=== PATIENT | female | born 1945 | race Caucasian/White ===

== ENCOUNTER 2018-09-22 14:26 | Emergency (ER) | payer MEDICARE, OTHER, SELFPAY ==
[2018-09-22 15:01] VITALS: BP 180/90; PULSE 60; TEMP 36.8; O2SAT 97
[2018-09-22 15:13] VITALS: BP 174/67; PULSE 83; RESP 17; O2SAT 97
--- NOTE | 2018-09-22 15:16 | DI.RAD.S_ITS ---
PROCEDURE: XR CHEST 2V INDICATIONS: chest pain/poss food bolus TECHNIQUE: 2 views of the chest were acquired. COMPARISON: None. FINDINGS: Surgical changes and devices: None. Lungs and pleura: Lungs are clear. No pleural effusions or pneumothorax. Mediastinum: Mediastinal contours are normal. Heart size is normal. Bones and chest wall: No suspicious bony abnormalities. Soft tissues appear unremarkable. IMPRESSION: No acute cardiopulmonary pathology. Dictated by: Gordo Fowler M.D. on 09/22/2018 at 15:42 Approved by: Gordo Fowler M.D. on 09/22/2018 at 15:42
[2018-09-22 16:00] VITALS: BP 164/57; PULSE 83
--- NOTE | 2018-09-22 16:11 | ED.CHESTPAIN ---
HPI - Chest Pain General Chief Complaint: Abdominal Pain Stated Complaint: obstructed swallowing,chest pain for 1 month Time Seen by Provider: 09/22/18 15:39 Source: patient Mode of arrival: ambulatory Limitations: no limitations History of Present Illness HPI narrative: Patient is a 73-year-old female who presents with chest discomfort. She has had esophageal spasm and feels like things are stuck in her throat. She has had difficulty swallowing his food but is able to keep liquids down. She says nothing ever comes up. Today she was having chest discomfort while talking with her friends. It was not associated with eating or drinking. She does have some radiation to her left breast area. She does not have any pain now. She has no shortness of breath heart palpitations dizziness lightheadedness. MD complaint: chest pain Related Data Home Medications Medication Instructions Recorded Confirmed Fish Oil (#OMEGA 3) 2,000 mg PO Q DAY #0 08/13/11 MULTIVITAMIN 1 cap PO Q DAY #0 08/13/11 VITAMIN D (Vitamin D3) 2,000 unit PO QDAY #0 08/13/11 Vitamin B Complex4 (#B COMPLEX) 1 tab PO Q DAY #0 08/13/11 Previous Rx's Medication Instructions Recorded Ranitidine Hydrochloride 150 mg PO BID #30 01/30/12 (RANITIDINE) prednisone 0 PO SEE INSTRUCTIONS #21 01/30/12 Allergies Allergy/AdvReac Type Severity Reaction Status Date / Time codeine [CODEINE] Allergy Severe Dizzy / Unverified 10/23/17 11:49 Nausea / Vomiting meperidine [MEPERIDINE] Allergy Severe Dizzy / Unverified 10/23/17 11:49 Nausea / Vomiting Review of Systems Review of Systems ROS Unobtainable: All systems reviewed & are unremarkable except as noted in HPI and below Constitutional Denies chills, Denies fever(s), Denies lethargy and Denies weakness ENT Ears, Nose, Mouth, and Throat: Denies mouth lesions, Denies throat swelling and Denies tongue swelling Cardiovascular Reports chest pain, Denies syncope, Denies lightheadedness, Denies dyspnea and Denies dyspnea on exertion Respiratory Denies cough, Denies dyspnea, Denies dyspnea on exertion and Denies wheezing Gastrointestinal Gastrointestinal: Denies abdominal pain, Denies change in bowel habits, Denies diarrhea, Denies nausea and Denies vomiting Musculoskeletal Denies back pain, Denies muscle weakness, Denies numbness and Denies tingling Integumentary/Breasts Denies pruritus, Denies erythema, Denies rash and Denies wounds Neurologic Denies syncope, Denies numbness, Denies tingling and Denies weakness Allergic/Immunologic Denies throat swelling, Denies tongue swelling and Denies wheezing [facility] Medical History Esophageal spasm (Acute) Social History Smoking Status: Never smoker Social History Smoking Status: Never smoker alcohol intake: current substance use type: does not use Exam Initial Vital Signs Initial Vital Signs: Vital Signs Temperature 98.2 F 09/22/18 15:01 Pulse Rate 60 09/22/18 15:01 Blood Pressure 180/90 H 09/22/18 15:01 Pulse Oximetry 97 09/22/18 15:01 GENERAL: Well-appearing, well-nourished and in no acute distress. HEENT: Head atraumatic,EOMI, pupils reactive CARDIOVASCULAR: Regular rate and rhythm without murmurs, rubs or gallops. RESPIRATORY: Breath sounds equal bilaterally, no wheezes rales or rhonchi. No stridor managing own secretions ABDOMEN: Soft, nontender. Normoactive bowel sounds all 4 quadrants. No guarding or rebound. EXTREMITIES: Normal range of motion, no clubbing or edema. Neurovascularly intact NEUROLOGICAL: Alert and oriented x4.Normal gait and speech. SKIN: Warm, dry, no laceration, no petechiae, no rashes or lesions. Scores HEART Score Heart Score history: Slightly Suspicious Heart Score EKG: Normal Heart Score Age: > or = 65 years old Heart Score risk factors: No known risk factors Heart Score troponin: < or = to normal limit Heart Score Total: 2 Course Orders Ordered: Discontinued Medications Pantoprazole Sodium (Protonix) 40 mg IV NOW ONE Stop: 09/22/18 16:13 Last Admin: 09/22/18 17:04 Dose: 40 mg Vital Signs - 8 hr 09/22/18 15:01 09/22/18 15:13 09/22/18 16:00 Temperature 98.2 F Pulse Rate 60 83 83 Respiratory Rate 17 Blood Pressure 180/90 H Blood Pressure [Right Arm] 174/67 H 164/57 H Pulse Oximetry 97 97 09/22/18 17:35 Temperature Pulse Rate Respiratory Rate Blood Pressure Blood Pressure [Right Arm] 175/73 H Pulse Oximetry MDM - Chest Pain Lab Data Attestation: I reviewed the patient's lab results. Result diagrams: 09/22/18 17:00 09/22/18 17:00 Lab Results 09/22/18 09/22/18 Range/Units 17:00 17:00 WBC 8.4 (4.5-11.0) X10^3/uL RBC 4.52 (4.0-5.2) X10^6/uL Hgb 14.1 (12.0-16.0) g/dL Hct 42.4 (36-46) % MCV 93.8 (80-100) fL MCH 31.1 (26-34) PG MCHC 33.2 (30-36) % RDW 13.4 (11.6-14.8) % Plt Count 242 (150-400) X10^3/uL Neut % (Auto) 48.7 L (50-75) % Lymph % (Auto) 39.7 (25-40) % [place] % (Auto) 7.9 (3-14) % Eos % (Auto) 2.7 (2-4) % Baso % (Auto) 1.0 (0-2) % Neut # (Auto) 4100 (5144-7475) /uL Lymph # (Auto) 3300 (9492-1854) /uL [place] # (Auto) 700 (0-900) /uL Eos # (Auto) 200 (0-450) /uL Baso # (Auto) 100 (0-100) /uL Sodium 139 (137-145) mmol/L Potassium 4.3 (3.4-5.1) mmol/L Chloride 101 (98-107) mmol/L Carbon Dioxide 28 (22-32) mmol/L BUN 17 (7-17) mg/dL Creatinine 0.70 (0.52-1.04) mg/dL Estimated GFR > 60.0 (>60) mL/min BUN/Creatinine Ratio 24.3 H (6-22) Glucose 85 (80-110) mg/dL Calcium 9.6 (8.4-10.2) mg/dL Total Bilirubin 0.7 (0.2-1.3) mg/dL AST 33 (14-36) IU/L ALT 32 (9-52) IU/L Alkaline Phosphatase 63 (38-126) U/L Total Creatine Kinase 57 (30-135) U/L CK-MB (CK-2) TNP CK-MB (CK-2) Rel Index TNP Troponin I < 0.012 (0.01-0.034) ng/mL Total Protein 8.2 (6.3-8.2) g/dL Albumin 4.6 (3.5-5.0) g/dL Globulin 3.6 (1.7-4.1) g/dL Albumin/Globulin Ratio 1.3 (1.0-2.8) Lipase 103 (23-300) U/L Imaging Data Chest x-ray: Radiologist's impression: PROCEDURE: XR CHEST 2V INDICATIONS: chest pain/poss food bolus TECHNIQUE: 2 views of the chest were acquired. COMPARISON: None. FINDINGS: Surgical changes and devices: None. Lungs and pleura: Lungs are clear. No pleural effusions or pneumothorax. Mediastinum: Mediastinal contours are normal. Heart size is normal. Bones and chest wall: No suspicious bony abnormalities. Soft tissues appear unremarkable. IMPRESSION: No acute cardiopulmonary pathology. Dictated by: Gordo Fowler M.D. on 09/22/2018 at 15:42 ECG Data Attestation: I personally reviewed and interpreted this ECG as follows: Prior ECG tracings: not available for review Interpretation: Normal sinus rhythm rate [address] changes no T-wave inversion no sign of ischemia [place] interval 156 MDM Narrative Medical decision making narrative: Patient typically has esophageal spasm associated with solid food. She is able to drink liquids. She did have abnormal chest pain today without association of food. She overall is feeling is much better. I discussed with her need for cardiac evaluation and further workup along with full GI workup. She is recently got a referral by her PCP to GI however she is unsure exactly when it is. She feels like she has lost about 8 lb due to inability to eat. She understands that stress test is was not done today is still part of cardiac workup. She also understands return to ED if you should have any further worsening or changing chest pain. Discharge Plan Departure Patient Disposition: Home Clinical Impression: Atypical chest pain Discharge Date/Time: 09/22/18 18:09 Interventions: ED Discharge Assessment Last Done: 09/22/18 18:09 Instructions: DI for Atypical Chest Pain Activity Restrictions/Additional Instructions: *You have been diagnosed with atypical chest pain *What to do: At this time blood work EKG and x-ray are reassuring. However I still recommend stress test 4 year heart along with GI consultation. Please discuss this with your PCP *Continue to take medications as directed *Follow up with your primary care provider in 2-3 days *Return to ER if you should have chest discomfort, a breast inability to swallow persistently vomiting or any new, worsening or concerning symptoms Prescriptions: No Action Fish Oil (#OMEGA 3) 2,000 mg PO Q DAY Qty: 0 RF: 0 VITAMIN D (Vitamin D3) 2,000 unit PO QDAY Qty: 0 RF: 0 Vitamin B Complex4 (#B COMPLEX) 1 tab PO Q DAY Qty: 0 RF: 0 MULTIVITAMIN 1 cap PO Q DAY Qty: 0 RF: 0 prednisone 20 MG tablet PO SEE INSTRUCTIONS Qty: 21 RF: 0 Ranitidine Hydrochloride (RANITIDINE) 150 mg PO BID Qty: 30 RF: 0
[2018-09-22] MEDS: PANTOPRAZOLE 40 MG VIAL IV (17:04)
[2018-09-22 17:07] LABS: Add Manual Diff / Slide Review NO; Basophils Absolute Auto 100 /uL (0-100); Eosinophils Absolute Auto 200 /uL (0-450); Eosinophils Percent Auto 2.7 % (2-4); Hematocrit 42.4 % (36-46); Hemoglobin 14.1 g/dL (12.0-16.0); Lymphocytes Absolute Auto 3300 /uL (1100-4500); Lymphocytes Percent Auto 39.7 % (25-40); Mean Corpuscular HGB Conc 33.2 % (30-36); Mean Corpuscular Hemoglobin 31.1 PG (26-34); Mean Corpuscular Volume 93.8 fL (80-100); Monocytes Absolute Auto 700 /uL (0-900); Monocytes Percent Auto 7.9 % (3-14); Neutrophils Absolute Auto 4100 /uL (1500-7000); Neutrophils Percent Auto 48.7 % (50-75); Platelet Count 242 X10^3/uL (150-400); Red Blood Cell Count 4.52 X10^6/uL (4.0-5.2); Red Cell Distribution Width 13.4 % (11.6-14.8); White Blood Cell Count 8.4 X10^3/uL (4.5-11.0)
[2018-09-22 17:25] LABS: Alanine Aminotransferase 32 IU/L (9-52); Albumin 4.6 g/dL (3.5-5.0); Albumin Globulin Ratio 1.3 (1.0-2.8); Alkaline Phosphatase 63 U/L (38-126); Aspartate Aminotransferase 33 IU/L (14-36); BUN Creatinine Ratio 24.3 (6-22); Bilirubin Total 0.7 mg/dL (0.2-1.3); Blood Urea Nitrogen 17 mg/dL (7-17); Calcium 9.6 mg/dL (8.4-10.2); Carbon Dioxide 28 mmol/L (22-32); Chloride 101 mmol/L (98-107); Creatine Kinase 57 U/L (30-135); Estimated Glomerular Filt Rate > 60.0 mL/min (>60); Globulin 3.6 g/dL (1.7-4.1); Glucose 85 mg/dL (80-110); Lipase 103 U/L (23-300); Sodium 139 mmol/L (137-145); Total Protein 8.2 g/dL (6.3-8.2)
[2018-09-22 17:30] LABS: HEMOLYSIS 58 (0-50)
[2018-09-22 17:31] LABS: Potassium 4.3 mmol/L (3.4-5.1)
[2018-09-22 17:35] VITALS: BP 175/73
[2018-09-22 17:36] LABS: Troponin I < 0.012 ng/mL (0.01-0.034)
== END 2018-09-22 18:09 | disposition home or self-care (01) ==
PROVIDERS: Emergency Provider Emergency Medicine
DX: R07.89 Other chest pain (principal)
CPT/HCPCS: 36591; 71046; 80053; 82550; 83690; 84484; 85025; 93005; 96374; 99283; 99285; C9113

== ENCOUNTER 2019-06-10 16:24 | Inpatient (IN) | payer MEDICARE, OTHER, SELFPAY ==
--- NOTE | 2019-06-10 16:26 | ED.WEAKNESS ---
HPI - Weakness General Chief complaint: Weakness Stated complaint: Infection Time Seen by Provider: 06/10/19 16:25 Source: patient and EMS Mode of arrival: EMS Limitations: no limitations History of Present Illness HPI Narrative: The patient is a 73-year-old female with history of esophageal cancer for which she is chosen not to treat. She has a PEG tube because she is not able to eat. 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 She said last night she started feeling ill just generalized weakness and fatigue. She has some abdominal discomfort. No known fevers no nausea or vomiting. She says that she has only urinated twice she is unable to give herself feedings or is water in her PEG tube. She has some mild cough but no real shortness of breath or chest MD Complaint: generalized weakness Onset (ago): day(s) (1) Duration: constant Location: generalized Relieving factors: none Related Data Home Medications Medication Instructions Recorded Confirmed Fish Oil (#OMEGA 3) 2,000 mg PO Q DAY #0 08/13/11 MULTIVITAMIN 1 cap PO Q DAY #0 08/13/11 VITAMIN D (Vitamin D3) 2,000 unit PO QDAY #0 08/13/11 Vitamin B Complex4 (#B COMPLEX) 1 tab PO Q DAY #0 08/13/11 Previous Rx's Medication Instructions Recorded Ranitidine Hydrochloride 150 mg PO BID #30 01/30/12 (RANITIDINE) prednisone 0 PO SEE INSTRUCTIONS #21 01/30/12 Allergies Allergy/AdvReac Type Severity Reaction Status Date / Time No Known Allergies Allergy Verified 06/10/19 17:20 codeine [CODEINE] AdvReac Severe Dizzy / Unverified 06/10/19 17:20 Nausea / Vomiting meperidine [MEPERIDINE] AdvReac Severe Dizzy / Unverified 06/10/19 17:20 Nausea / Vomiting Review of Systems Review of Systems ROS Unobtainable: All systems reviewed & are unremarkable except as noted in HPI and below Constitutional Constitutional: Denies chills, Denies fever(s), Denies lethargy and Reports weakness Eyes Eyes: Denies change in vision, Denies eye discharge, Denies irritation and Denies loss of vision ENT Ears, Nose, Mouth, and Throat: Denies change in voice, Denies neck pain and Denies sore throat Cardiovascular Cardiovascular: Denies chest pain, Denies irregular heart rhythm, Denies lightheadedness, Denies palpitations, Denies dyspnea, Denies dyspnea on exertion and Denies orthopnea Respiratory Respiratory: Denies cough, Denies dyspnea, Denies dyspnea on exertion and Denies wheezing Gastrointestinal Gastrointestinal: Reports as per HPI Genitourinary Genitourinary: Denies hematuria, Denies flank pain, Denies urinary incontinence and Denies urinary urgency Musculoskeletal Musculoskeletal: Denies neck pain Integumentary/Breasts Skin/Breast: Denies pruritus, Denies erythema, Denies rash and Denies wounds Neurologic Neurologic: Denies loss of vision and Reports weakness Endocrine Endocrine: Denies palpitations Allergic/Immunologic Allergic/Immunologic: Denies wheezing Patient History Medical History Esophageal cancer (Acute) Esophageal spasm (Acute) Social History Smoking Status: Never smoker alcohol intake: current substance use type: does not use alcohol intake frequency: 0-2 drinks per day Substance Use Type: does not use Exam Initial Vital Signs Initial Vital Signs: Vital Signs Temperature 99.0 F 06/10/19 16:30 Pulse Rate 115 H 06/10/19 16:30 Respiratory Rate 18 06/10/19 16:30 Blood Pressure 114/57 L 06/10/19 16:30 Pulse Oximetry 97 06/10/19 16:30 GENERAL: Thin alert female weak HEENT: Head atraumatic,EOMI, pupils reactive, face symmetric, moist mucous membranes CARDIOVASCULAR: Regular rate and rhythm without murmurs, rubs or gallops. RESPIRATORY: Breath sounds equal bilaterally, no wheezes rales or rhonchi. ABDOMEN: Soft, mild epigastric tenderness no guarding or rebound, peg tube in place no surrounding erythema or sign of infection EXTREMITIES: Normal range of motion, no clubbing or edema. Neurovascularly intact NEUROLOGICAL: Alert and oriented x4.Normal gait and speech. Cranial nerves II through XII grossly intact. SKIN: Warm, dry, no laceration, no petechiae, no rashes or lesions. Course Orders Ordered: ED Orders 06/10/19 16:08 Complete Blood Count AUTO DIFF Stat Comprehensive Metabolic Panel Stat Lipase Stat Procalcitonin Stat 06/10/19 16:31 CT chest abd pel w con Stat 06/10/19 16:55 Blood Culture Stat Lactate (Lactic Acid) Stat 06/10/19 19:07 Urine Microscopic Stat Sodium Chloride (Normal Saline 0.9%) 1,000 mls @ 1,000 mls/hr IV CONT JONY Last Infusion: 06/10/19 19:30 Dose: 0 mls/hr Documented by: Admin: 06/10/19 18:10 Dose: 1,000 mls/hr Documented by: SHARIF Sodium Chloride (Normal Saline 0.9%) 1,000 mls @ 150 mls/hr IV CONT JONY Discontinued Medications Sodium Chloride (Normal Saline 0.9%) 1,000 mls @ 1,000 mls/hr IV BOLUS ONE Stop: 06/10/19 18:16 Last Infusion: 06/10/19 19:30 Dose: 0 mls/hr Documented by: Admin: 06/10/19 17:22 Dose: 1,000 mls/hr Documented by: SHARIF Piperacillin/Tazobactam/Dextrose (Zosyn) 3.375 gm in 50 mls @ 100 mls/hr IV NOW ONE Stop: 06/10/19 18:12 Last Infusion: 06/10/19 19:30 Dose: 0 mls/hr Documented by: Admin: 06/10/19 18:04 Dose: 100 mls/hr Documented by: SHARIF Morphine Sulfate (Morphine) 2 mg IV NOW ONE Stop: 06/10/19 17:18 Last Admin: 06/10/19 17:22 Dose: 2 mg Documented by: SHARIF Morphine Sulfate (Morphine) 2 mg IV NOW ONE Stop: 06/10/19 18:00 Last Admin: 06/10/19 18:03 Dose: 2 mg Documented by: SHARIF Vital Signs Vital signs: Vital Signs - 8 hr 06/10/19 16:30 06/10/19 18:05 Temperature 99.0 F Pulse Rate 115 H 109 H Respiratory Rate 18 23 Blood Pressure 114/57 L Blood Pressure [Left Arm] 109/51 L Pulse Oximetry 97 98 MDM - Weakness Lab Data Attestation: I reviewed the patient's lab results. Result diagrams: 06/10/19 16:08 06/10/19 16:08 Labs: Lab Results 06/10/19 06/10/19 06/10/19 Range/Units 16:08 16:08 16:08 WBC 29.7 H (4.5-11.0) X10^3/uL RBC 4.74 (4.0-5.2) X10^6/uL Hgb 13.0 (12.0-16.0) g/dL Hct 39.1 (36-46) % MCV 82.5 (80-100) fL MCH 27.5 (26-34) PG MCHC 33.4 (30-36) % RDW 14.0 (11.6-14.8) % Plt Count 412 H (150-400) X10^3/uL Neut % (Auto) Not Reportable Lymph % (Auto) Not Reportable [place] % (Auto) Not Reportable Eos % (Auto) Not Reportable Baso % (Auto) Not Reportable Lymph # (Auto) Not Reportable [place] # (Auto) Not Reportable Baso # (Auto) Not Reportable Total Counted 100 Seg Neutrophils % 86.0 H (38-70) % Band Neutrophils % 10.0 H (3-7) % Lymphocytes % (Manual) 2.0 L (25-45) % Monocytes % (Manual) 2.0 (2-11) % Neutrophils # (Manual) 64238 H (6120-2154) /uL RBC Morphology Normal morphology Sodium 131 L (137-145) mmol/L Potassium 3.9 (3.4-5.1) mmol/L Chloride 93 L (98-107) mmol/L Carbon Dioxide 29 (22-32) mmol/L BUN 17 (7-17) mg/dL Creatinine 0.80 (0.52-1.04) mg/dL Estimated GFR > 60.0 (>60) mL/min BUN/Creatinine Ratio 21.3 (6-22) Glucose 169 H (80-110) mg/dL Lactate (0.7-2.1) mmol/L Calcium 9.2 (8.4-10.2) mg/dL Total Bilirubin 1.1 (0.2-1.3) mg/dL AST 26 (14-36) IU/L ALT 15 (<35) IU/L Alkaline Phosphatase 78 (38-126) U/L Total Protein 7.7 (6.3-8.2) g/dL Albumin 3.8 (3.5-5.0) g/dL Globulin 3.9 (1.7-4.1) g/dL Albumin/Globulin Ratio 1.0 (1.0-2.8) Lipase 13 L (23-300) U/L Procalcitonin 8.96 H (<0.5) ng/mL 06/10/19 Range/Units 16:55 WBC (4.5-11.0) X10^3/uL RBC (4.0-5.2) X10^6/uL Hgb (12.0-16.0) g/dL Hct (36-46) % MCV (80-100) fL MCH (26-34) PG MCHC (30-36) % RDW (11.6-14.8) % Plt Count (150-400) X10^3/uL Neut % (Auto) Lymph % (Auto) [place] % (Auto) Eos % (Auto) Baso % (Auto) Lymph # (Auto) [place] # (Auto) Baso # (Auto) Total Counted Seg Neutrophils % (38-70) % Band Neutrophils % (3-7) % Lymphocytes % (Manual) (25-45) % Monocytes % (Manual) (2-11) % Neutrophils # (Manual) (0327-9866) /uL RBC Morphology Sodium (137-145) mmol/L Potassium (3.4-5.1) mmol/L Chloride (98-107) mmol/L Carbon Dioxide (22-32) mmol/L BUN (7-17) mg/dL Creatinine (0.52-1.04) mg/dL Estimated GFR (>60) mL/min BUN/Creatinine Ratio (6-22) Glucose (80-110) mg/dL Lactate 1.5 (0.7-2.1) mmol/L Calcium (8.4-10.2) mg/dL Total Bilirubin (0.2-1.3) mg/dL AST (14-36) IU/L ALT (<35) IU/L Alkaline Phosphatase (38-126) U/L Total Protein (6.3-8.2) g/dL Albumin (3.5-5.0) g/dL Globulin (1.7-4.1) g/dL Albumin/Globulin Ratio (1.0-2.8) Lipase (23-300) U/L Procalcitonin (<0.5) ng/mL Urine Dip Bedside Urine Glucose Negative Bedside Urine Bilirubin - Negative Bedside Urine Ketone - Negative Urine Specific [place] 1.010 Bedside Urine Occult Blood - Negative Bedside Urine pH 6.0 Bedside Urine Protein +/- 15 Bedside Urine Urobilinogen - Negative Bedside Urine Nitrite - Negative Bedside Urine Leukocytes + [address] scan - chest: Radiologist's impression: PROCEDURE: CT CHEST ABD PEL W CON INDICATIONS: esophageal cancer, incraesed pain and cough TECHNIQUE: After the administration of intravenous contrast, 5 mm thick sections acquired from the lung apices to the symphysis. 2.5 mm thick coronal and sagittal reformats were acquired. Additional 7 mm thick coronal maximum intensity projection (MIP) reformats acquired through the lungs. Optional 10-minute delayed imaging may be performed from the kidneys to the bladder. For radiation dose reduction, the following was used: automated exposure control, adjustment of mA and/or kV according to patient size. COMPARISON: [facility], CT, CT CHEST ABDOMEN PELVIS WITH CONTRAST, 10/05/2018, 15:25. FINDINGS: Image quality: Excellent. CHEST: Lungs: Tiny right and small left pleural effusion with associated compressive atelectasis. A few scattered patchy ill-defined groundglass opacity dominantly in the upper lobes. No pneumothorax. Central and peripheral airways appear patent and normal in caliber. Mediastinum: No mediastinal hematomas. Heart size is normal. No pericardial effusion. Thoracic aorta and pulmonary arteries demonstrate normal size and enhancement. No mediastinal or hilar adenopathy by size criteria; however, there are several scattered lymph nodes more notable for number rather than size. Additionally, multiple scattered bilateral axillary lymph nodes are also present. Esophagus is fluid-filled to the level of the thoracic inlet. There is irregular wall thickening of the inferior portion of the esophagus and gastroesophageal junction. This may be related to reported history of esophageal cancer. No extra luminal free air or pneumomediastinum identified. There is moderate distention of the inferior portion of the esophagus. The visualized stomach is decompressed. A feeding tube is noted within the stomach. Chest wall: No rib fractures. No subcutaneous emphysema. No axillary or supraclavicular adenopathy. Thyroid gland is stable in appearance. ABDOMEN: Solid organs: Liver is normal in size and enhancement, without lacerations. Gallbladder is moderately distended without wall thickening or pericholecystic inflammatory stranding. Biliary system is non-dilated. Pancreas enhances normally, without transection. Spleen is normal in size and enhancement, without lacerations. No adrenal hematomas. Both kidneys enhance normally, without hydronephrosis or lacerations. Peritoneum and bowel: Small amount of scattered free fluid likely reactive. No free air. There is inflammatory stranding surrounding the proximal ascending colon and distal small bowel with mild wall thickening. No evidence for bowel obstruction. Moderate fecal material seen throughout the transverse colon, descending colon, and rectum. Nodes and vessels: Interval development of substantial retroperitoneal adenopathy. This is noted predominantly along the aorta. There is also periportal adenopathy.. Aorta and inferior vena cava are normal in size and enhancement. Miscellaneous: No ventral hernias. PELVIS: Genitourinary: Bladder wall thickness is normal. Miscellaneous: No inguinal hernias or adenopathy. Bones: Visualized osseous structures appear stable. No acute vertebral body compression fractures. Multilevel spondylitic changes throughout the imaged spine. IMPRESSION: 1. Interval progression of previously described distal esophageal cancer with moderate distention of a fluid-filled esophagus proximally. There has been interval development of extensive periportal and retroperitoneal adenopathy compatible with progression of disease. 2. Mild inflammatory stranding involving the proximal ascending colon and distal small bowel without evidence for bowel obstruction. Mild wall thickening. Findings may represent an inflammatory versus infectious colitis/enteritis. Small amount of free fluid likely reactive. No organized fluid collection seen. No free air. 3. Bilateral pleural effusions, larger on the left with a few small ill-defined groundglass nodules in the bilateral upper lobes, favored to represent an infectious/inflammatory process. Short interval followup CT can be considered to document stability versus resolution. Findings were discussed with Dr. Srivastava of the emergency department staff. Dictated by: Mansoor Valentin M.D. on 06/10/2019 at 19:17 MDM Narrative Medical decision making narrative: [place] [id number] with elevated procalcitonin normal lactate afebrile normal blood pressure but tachycardic. Concern for a sepsis however no source is definitively found. She does have some mild leukocytes in her urine. CT does show possible colitis she has minimal pain. She overall is feeling much better after IV fluids and morphine. She is empirically given a dose of Zosyn. Discussed with Jorgito BAUMANN about admission. Updated patient's symptoms test results agrees with admission. Discharge Plan Departure Patient Disposition: Admitted As Inpatient Clinical Impression: Sepsis Qualifiers: Sepsis type: sepsis due to unspecified organism Sepsis acute organ dysfunction status: without acute organ dysfunction Qualified Code(s): A41.9 - Sepsis, unspecified organism
[2019-06-10 16:30] VITALS: BP 114/57; PULSE 115; RESP 18; TEMP 37.2; O2SAT 97; BMI 20.5
--- NOTE | 2019-06-10 16:31 | DI.CT.S_ITS ---
PROCEDURE: CT CHEST ABD PEL W CON INDICATIONS: esophageal cancer, incraesed pain and cough TECHNIQUE: After the administration of intravenous contrast, 5 mm thick sections acquired from the lung apices to the symphysis. 2.5 mm thick coronal and sagittal reformats were acquired. Additional 7 mm thick coronal maximum intensity projection (MIP) reformats acquired through the lungs. Optional 10-minute delayed imaging may be performed from the kidneys to the bladder. For radiation dose reduction, the following was used: automated exposure control, adjustment of mA and/or kV according to patient size. COMPARISON: [facility], CT, CT CHEST ABDOMEN PELVIS WITH CONTRAST, 10/05/2018, 15:25. FINDINGS: Image quality: Excellent. CHEST: Lungs: Tiny right and small left pleural effusion with associated compressive atelectasis. A few scattered patchy ill-defined groundglass opacity dominantly in the upper lobes. No pneumothorax. Central and peripheral airways appear patent and normal in caliber. Mediastinum: No mediastinal hematomas. Heart size is normal. No pericardial effusion. Thoracic aorta and pulmonary arteries demonstrate normal size and enhancement. No mediastinal or hilar adenopathy by size criteria; however, there are several scattered lymph nodes more notable for number rather than size. Additionally, multiple scattered bilateral axillary lymph nodes are also present. Esophagus is fluid-filled to the level of the thoracic inlet. There is irregular wall thickening of the inferior portion of the esophagus and gastroesophageal junction. This may be related to reported history of esophageal cancer. No extra luminal free air or pneumomediastinum identified. There is moderate distention of the inferior portion of the esophagus. The visualized stomach is decompressed. A feeding tube is noted within the stomach. Chest wall: No rib fractures. No subcutaneous emphysema. No axillary or supraclavicular adenopathy. Thyroid gland is stable in appearance. ABDOMEN: Solid organs: Liver is normal in size and enhancement, without lacerations. Gallbladder is moderately distended without wall thickening or pericholecystic inflammatory stranding. Biliary system is non-dilated. Pancreas enhances normally, without transection. Spleen is normal in size and enhancement, without lacerations. No adrenal hematomas. Both kidneys enhance normally, without hydronephrosis or lacerations. Peritoneum and bowel: Small amount of scattered free fluid likely reactive. No free air. There is inflammatory stranding surrounding the proximal ascending colon and distal small bowel with mild wall thickening. No evidence for bowel obstruction. Moderate fecal material seen throughout the transverse colon, descending colon, and rectum. Nodes and vessels: Interval development of substantial retroperitoneal adenopathy. This is noted predominantly along the aorta. There is also periportal adenopathy.. Aorta and inferior vena cava are normal in size and enhancement. Miscellaneous: No ventral hernias. PELVIS: Genitourinary: Bladder wall thickness is normal. Miscellaneous: No inguinal hernias or adenopathy. Bones: Visualized osseous structures appear stable. No acute vertebral body compression fractures. Multilevel spondylitic changes throughout the imaged spine. IMPRESSION: 1. Interval progression of previously described distal esophageal cancer with moderate distention of a fluid-filled esophagus proximally. There has been interval development of extensive periportal and retroperitoneal adenopathy compatible with progression of disease. 2. Mild inflammatory stranding involving the proximal ascending colon and distal small bowel without evidence for bowel obstruction. Mild wall thickening. Findings may represent an inflammatory versus infectious colitis/enteritis. Small amount of free fluid likely reactive. No organized fluid collection seen. No free air. 3. Bilateral pleural effusions, larger on the left with a few small ill-defined groundglass nodules in the bilateral upper lobes, favored to represent an infectious/inflammatory process. Short interval followup CT can be considered to document stability versus resolution. Findings were discussed with Dr. Srivastava of the emergency department staff. Dictated by: Mansoor Valentin M.D. on 06/10/2019 at 19:17 Approved by: Mansoor Valentin M.D. on 06/10/2019 at 19:36
[2019-06-10 16:49] LABS: Hematocrit 39.1 % (36-46); Mean Corpuscular HGB Conc 33.4 % (30-36); Mean Corpuscular Hemoglobin 27.5 PG (26-34); Mean Corpuscular Volume 82.5 fL (80-100); Platelet Count 412 X10^3/uL (150-400); Red Blood Cell Count 4.74 X10^6/uL (4.0-5.2); White Blood Cell Count 29.7 X10^3/uL (4.5-11.0)
[2019-06-10 16:51] LABS: Add Manual Diff / Slide Review YES
[2019-06-10 16:54] LABS: Alanine Aminotransferase 15 IU/L (<35); Albumin 3.8 g/dL (3.5-5.0); Alkaline Phosphatase 78 U/L (38-126); Aspartate Aminotransferase 26 IU/L (14-36); BUN Creatinine Ratio 21.3 (6-22); Bilirubin Total 1.1 mg/dL (0.2-1.3); Blood Urea Nitrogen 17 mg/dL (7-17); Calcium 9.2 mg/dL (8.4-10.2); Carbon Dioxide 29 mmol/L (22-32); Chloride 93 mmol/L (98-107); Estimated Glomerular Filt Rate > 60.0 mL/min (>60); Globulin 3.9 g/dL (1.7-4.1); Glucose 169 mg/dL (80-110); HEMOLYSIS 18 (0-50); Lipase 13 U/L (23-300); Potassium 3.9 mmol/L (3.4-5.1); Sodium 131 mmol/L (137-145); Total Protein 7.7 g/dL (6.3-8.2)
[2019-06-10 17:12] LABS: Neutrophils Absolute Manual 28512 /uL (3000-5900); Total Cells Counted 100
[2019-06-10 17:13] LABS: RBC Morphology Normal Morphology
[2019-06-10 17:15] LABS: Procalcitonin 8.96 ng/mL (<0.5)
[2019-06-10 17:17] LABS: Lactate (Lactic Acid) 1.5 mmol/L (0.7-2.1)
[2019-06-10] MEDS: SODIUM CHLORIDE 0.9% 1,000 ML 1000 ML IV ×2 (17:22→18:10)
[2019-06-10] MEDS: MORPHINE 2 MG/ML INJ IV ×3 (17:22→20:27)
[2019-06-10] MEDS: PIPERACILLIN-TAZO 3.375 GM/50 ML FROZ.PIGGY IV (18:04)
[2019-06-10 18:05] VITALS: BP 109/51; PULSE 109; RESP 23; O2SAT 98
[2019-06-10 19:40] LABS: RBC Urine None Seen (0-5/HPF)
[2019-06-10] MEDS: SODIUM CHLORIDE 0.9% 1,000 ML 150 ML IV (19:50)
[2019-06-10 19:57] LABS: Bacteria Urine Few (2-10); Culture Indicated Urine Specimen Cultured; Squamous Epithelial Cell Urine 1-5 /HPF (0-5/HPF); WBC Urine 30-100/HPF (0-5/HPF)
[2019-06-10 20:30] VITALS: BP 107/64; PULSE 101; RESP 19; O2SAT 99
[2019-06-10 20:38] VITALS: BMI 20.9
--- NOTE | 2019-06-10 20:38 | P.HP_ITS ---
History of Present Illness History of Present Illness Date Patient Seen: 06/10/19 Time Patient Seen: 20:00 Chief complaint: Weakness Narrative: Tessy Vasquez is a 73 y.o. female with a diagnosis of esphogeal cancer that uses a feeding tube developed generalized weakness over the past 24 hours to the point she was unable to do her tube feedings. She denies fever or chills, shortness of breath, throat pain, has been very thirsty but became nauseated when she trie d to drink water. Denies chest pain, abdominal pain, but noted upon exam that her feeding tube site was bleeding which is not normal. She does endorse chronic constipation due to taking oxycodone. Denies upper or lower extremity neuropathies, has intermittent depression. She is currently under the care of Dr. Fajardo, oncologist and Ynes George PCP of [facility]. States she is not pursuing traditional chemotherapy but was going to start IV Vitamin C through a [facility] physician she sees. Patient History Medical History (Updated 06/10/19 @ 20:43 by IBIS Houser) Esophageal cancer (Chronic) Esophageal spasm (Acute) Surgical History (Updated 06/10/19 @ 20:43 by IBIS Houser) Encounter for feeding tube placement (Acute) Family & Social History Family History (Updated 06/10/19 @ 20:41 by IBIS Houser) Other Adopted person Safety & Behavioral: Feels Safe in Current Yes Environment Been Physically Hurt or No Threatened By a Person Tobacco & Substance use: Smoking Status Never smoker alcohol intake current alcohol intake frequency 0-2 drinks per day Substance Use Type does not use Meds Home Medications and Allergies Home Medications Medication Instructions Recorded Confirmed Type Fish Oil (#OMEGA 3) 2,000 mg PO Q DAY #0 08/13/11 History MULTIVITAMIN 1 cap PO Q DAY #0 08/13/11 History VITAMIN D (Vitamin D3) 2,000 unit PO QDAY #0 08/13/11 History Vitamin B Complex4 (#B COMPLEX) 1 tab PO Q DAY #0 08/13/11 History Ranitidine Hydrochloride 150 mg PO BID #30 01/30/12 Rx (RANITIDINE) prednisone 0 PO SEE INSTRUCTIONS #21 01/30/12 Rx Allergies Allergy/AdvReac Type Severity Reaction Status Date / Time No Known Allergies Allergy Verified 06/10/19 17:20 codeine [CODEINE] AdvReac Severe Dizzy / Unverified 06/10/19 17:20 Nausea / Vomiting meperidine [MEPERIDINE] AdvReac Severe Dizzy / Unverified 06/10/19 17:20 Nausea / Vomiting Review of Systems Review of Systems ROS Unobtainable: All systems reviewed & are unremarkable except as noted in HPI and below Exam Vital Signs (past 8 hours): - 06/10/19 16:30 06/10/19 18:05 Temperature 99.0 F Pulse Rate 115 H 109 H Respiratory Rate 18 23 Blood Pressure 114/57 L Blood Pressure [Left Arm] 109/51 L Pulse Oximetry 97 98 Oxygen Delivery Method Room Air Narrative Exam Narrative: Gen: Alert, oriented, ill appearing and cachectic 73 y.o. female, pale HEENT: normocephalic, atraumatic, conjunctiva clear, sclera non-icteric, oral mucosa pink and moist Neck: supple, full ROM Resp: Lungs CTA, non-labored breathing CV: RRR, no murmur or rubs Abd: soft, non-tender, normoactive BTs Skin: Has dried blood around entry point of her feeding tubeno lesions or rashes Neuro: Alert and oriented X 4 w/no focal deficits Extremities: moves all 4 extremities, is ambulatory, negative Gallito?s sign Psyche: normal mood and affect. Objective Labs Result Diagrams: 06/10/19 16:08 06/10/19 16:08 Labs: Laboratory Results - last 24 hr 06/10/19 06/10/19 06/10/19 16:08 16:08 16:08 WBC 29.7 H RBC 4.74 Hgb 13.0 Hct 39.1 MCV 82.5 MCH 27.5 MCHC 33.4 RDW 14.0 Plt Count 412 H Neut % (Auto) Not Reportable Lymph % (Auto) Not Reportable [place] % (Auto) Not Reportable Eos % (Auto) Not Reportable Baso % (Auto) Not Reportable Lymph # (Auto) Not Reportable [place] # (Auto) Not Reportable Baso # (Auto) Not Reportable Total Counted 100 Seg Neutrophils % 86.0 H Band Neutrophils % 10.0 H Lymphocytes % (Manual) 2.0 L Monocytes % (Manual) 2.0 Neutrophils # (Manual) 88084 H RBC Morphology Normal morphology Sodium 131 L Potassium 3.9 Chloride 93 L Carbon Dioxide 29 BUN 17 Creatinine 0.80 Estimated GFR > 60.0 BUN/Creatinine Ratio 21.3 Glucose 169 H Lactate Calcium 9.2 Total Bilirubin 1.1 AST 26 ALT 15 Alkaline Phosphatase 78 Total Protein 7.7 Albumin 3.8 Globulin 3.9 Albumin/Globulin Ratio 1.0 Lipase 13 L Procalcitonin 8.96 H Urine RBC Urine WBC Ur Squamous Epith Cells Urine Bacteria Ur Culture Indicated? 06/10/19 06/10/19 16:55 19:07 WBC RBC Hgb Hct MCV MCH MCHC RDW Plt Count Neut % (Auto) Lymph % (Auto) [place] % (Auto) Eos % (Auto) Baso % (Auto) Lymph # (Auto) [place] # (Auto) Baso # (Auto) Total Counted Seg Neutrophils % Band Neutrophils % Lymphocytes % (Manual) Monocytes % (Manual) Neutrophils # (Manual) RBC Morphology Sodium Potassium Chloride Carbon Dioxide BUN Creatinine Estimated GFR BUN/Creatinine Ratio Glucose Lactate 1.5 Calcium Total Bilirubin AST ALT Alkaline Phosphatase Total Protein Albumin Globulin Albumin/Globulin Ratio Lipase Procalcitonin Urine RBC None seen Urine WBC 30-100/hpf H Ur Squamous Epith Cells 1-5 /hpf Urine Bacteria Few (2-10) H Ur Culture Indicated? Specimen cultured Assessment & Plan Assessment & Plan narrative: Tessy Vasquez will be admitted for IV antibiotic treatment and further workup of the infectious process. 1. Elevated WBC and bandemia, acute and present on admission * Repeat CBC and lactate in the am * Continue IV pipercillen sulbactem given in the ED * Start Vanco dosed per pharmacy * Blood and urine cultures are pending * Stool culture ordered and pending * Monitor for signs of sepsis, currently she is not septic 2. Esophageal cancer, worsening, POA * Patient is currently not pursuing traditional treatment but is under the care of Dr. Fajardo * Dr. Fajardo needs to be notified of her admission 3. Bilateral pleural effusions, new, POA * Radiology findings 1. Interval progression of previously described distal esophageal cancer with moderate distention of a fluid-filled esophagus proximally. There has been interval development of extensive periportal and retroperitoneal adenopathy compatible with progression of disease. 2. Mild inflammatory stranding involving the proximal ascending colon and distal small bowel without evidence for bowel obstruction. Mild wall thickening. Findings may represent an inflammatory versus infectious colitis/enteritis. Small amount of free fluid likely reactive. No organized fluid collection seen. No free air. 3. Bilateral pleural effusions, larger on the left with a few small ill-defined groundglass nodules in the bilateral upper lobes, favored to represent an infectious/inflammatory process. Short interval followup CT can be considered to document stability versus resolution. They recommended close interval follow-up w/CT. * Monitor for worsening pleural effusions and consult with IR for a thoracentesis on Tuesday 06/12. 4. Bleeding at PEG tube site, new, POA * If continues, surgical consult will be in order. Patient is admitted as an inpatient as her stay is anticipated to exceed 2 midnights. FEN: NS at 125 ml/hour, liquid diet per NG tube, chemistries in the am. VTE Prophylaxis: bilateral SCDs, pharmacological anticoagulation held due to current bleeding her PEG tube site. Disposition: Unknown at this time Code status: Full Code Admission time: 65 minutes Meds reconciled: Yes
[2019-06-10 20:40] VITALS: BP 125/55; PULSE 108; RESP 20; TEMP 37.7; O2SAT 99
--- NOTE | 2019-06-10 21:31 | PC.NURSE ---
admit pt to AC from ER approx 2100. VSS with slight tachycardia at 109. Chronic back pain; intermittent pt states tolererable. Pt brought own tube feeding supplies from home and administers via gravity. pt states on a good day takes in 4-5 containers (325ml each) of formula along with water flushes. pt currently administering dose independently. PEG tube insertion sight has dried blood around tubing and in areas where disc of feeding tube was positioned against skin. area cleansed with saline moistened gauze and Vaseline applied to some spots that were crusted and not coming off. T-tube gauze overlay between skin and plastic disc. will pass on in report to cleanse area again in the AM to try to remove remaining dried blood. Awaiting resp swab from lab. Pt oriented to room and plan of care. instructed to use call light for needs and prior to activity for assist.
[2019-06-10] MEDS: OXYCODONE 5 MG/5 ML ORAL SOLUTION PO (22:19)
[2019-06-10 23:00] VITALS: BP 94/49; PULSE 100; RESP 18; TEMP 37.2; O2SAT 94
[2019-06-10 23:01] LABS: Adenovirus Not Detected (Not Detect); Bordetella pertussis Not Detected (Not Detect); Chlamydophila pneumoniae Not Detected (Not Detect); Coronavirus 229E Not Detected (Not Detect); Coronavirus HKU1 Not Detected (Not Detect); Coronavirus NL 63 Not Detected (Not Detect); Coronavirus OC43 Not Detected (Not Detect); Human Metapneumovirus Not Detected (Not Detect); Human Rhinovirus/Enterovirus Not Detected (Not Detect); Influenza A Not Detected (Not Detect); Influenza B Not Detected (Not Detect); Mycoplasma pneumoniae Not Detected (Not Detect); Parainfluenza Virus 1 Not Detected (Not Detect); Parainfluenza Virus 2 Not Detected (Not Detect); Parainfluenza Virus 3 Not Detected (Not Detect); Parainfluenza Virus 4 Not Detected (Not Detect); Respiratory Syncytial Virus Not Detected (Not Detect)
[2019-06-10] MEDS: VANCOMYCIN 1,250 MG in SODIUM CHLORIDE 0.9% 250 ML IV (23:02)
[2019-06-11] VITALS (9 sets, daily range): BP systolic 89–114; BP diastolic 45–67; PULSE 88–111; RESP 16–21; TEMP 36.7–37.4; O2SAT 94–96
[2019-06-11] MEDS: PIPERACILLIN-TAZO 3.375 GM/50 ML FROZ.PIGGY IV ×5 (00:12→23:45)
--- NOTE | 2019-06-11 01:21 | PC.NURSE ---
Patient on an NPO diet as she cannot pass anything through esophagus due to cancer but is allowed to feed herself with home formula and can have water to swish and spit. This was clarified and ordered verbally by IBIS Bull, see diet modifications and communication order in worklist.
[2019-06-11] MEDS: SODIUM CHLORIDE 0.9% 1,000 ML 150 ML IV ×2 (03:56→13:24)
[2019-06-11] MEDS: OXYCODONE 5 MG/5 ML ORAL SOLUTION PO ×3 (04:32→20:21)
[2019-06-11 05:13] LABS: Add Manual Diff / Slide Review NO; Basophils Absolute Auto 100 /uL (0-100); Basophils Percent Auto 0.3 % (0-2); Eosinophils Absolute Auto 200 /uL (0-450); Hematocrit 28.3 % (36-46); Hemoglobin 9.5 g/dL (12.0-16.0); Lymphocytes Absolute Auto 500 /uL (1100-4500); Lymphocytes Percent Auto 2.1 % (25-40); Mean Corpuscular HGB Conc 33.7 % (30-36); Mean Corpuscular Hemoglobin 27.8 PG (26-34); Mean Corpuscular Volume 82.6 fL (80-100); Monocytes Absolute Auto 400 /uL (0-900); Monocytes Percent Auto 1.8 % (3-14); Neutrophils Absolute Auto 23100 /uL (1500-7000); Neutrophils Percent Auto 94.8 % (50-75); Platelet Count 309 X10^3/uL (150-400); Red Blood Cell Count 3.43 X10^6/uL (4.0-5.2); Red Cell Distribution Width 13.8 % (11.6-14.8); White Blood Cell Count 24.4 X10^3/uL (4.5-11.0)
[2019-06-11 05:19] LABS: BUN Creatinine Ratio 28.6 (6-22); Blood Urea Nitrogen 20 mg/dL (7-17); Calcium 7.7 mg/dL (8.4-10.2); Carbon Dioxide 24 mmol/L (22-32); Chloride 101 mmol/L (98-107); Estimated Glomerular Filt Rate > 60.0 mL/min (>60); Glucose 120 mg/dL (80-110); HEMOLYSIS < 15 (0-50); Potassium 3.3 mmol/L (3.4-5.1); Sodium 129 mmol/L (137-145)
[2019-06-11] MEDS: POTASSIUM CHLORIDE 20 MEQ/15 ML UDC 40 MEQ TUBE (06:40)
[2019-06-11 07:27] LABS: Procalcitonin 8.06 ng/mL (<0.5)
--- NOTE | 2019-06-11 09:42 | DIET.PN ---
Dietary Progress Note Assessment: Mrs. Vasquez is a 73 yof w/ esophageal cancer without traditional therapy. She is on a home tube feeding formula, but was unable to administer herself due to weakness. She has had significant weight loss over the last several months. HT: 162.56 cm WT: 55.4 kg UBW: 77 kg (09/30) % change: 28% BMI: 21 Labs: Na: 129 L K: 3.3 L MNA: 5 Mega: Nutrition Diagnosis: Chronic illness severe protein calorie malnutrition r/t physiological causes increasing nutrient needs due to illness, inability to consume sufficient PO nutrition aeb dx esophageal cancer, energy intake < 75% EER > 1mo, weight loss > 10% in 6 mo, on home tubefeeding for nutritional support. Interventions: 1. Mrs. Vasquez is on home tubefeeding for nutritional support. Spoke w/ nurse Elly. She brought her own TF supplements with her ([employer] 1.0) witch is a plant based supplement I am familiar with. I will provide my recommendations of calorie needs and hospital formulary. Pt will need 70 ml/hr if utilizing home formulary. Diet Order: Tube Feeding. Jevity (1.2 Chao) at 60 mL/hr (continuous) - Start at 20 mL/hr, titrate by 10-20 mL/hr every 4 hours to goal - 1 additional protein packet (Beneprotein) per day - 150 mL free water flushes every 4 hours (37.5 mL/hr) - Provides 1752 kcal (32 kcal/kg) and 86 gm (1.6 gm/kg) of protein - Enteral feed and flushes provide 2062 mL (37 mL/kg) of free water May switch to Bolus feed of 290 ml w/ 180 ml flushes for 5 feeds q 3 hrs (ex. 7a, 10a, 1p, 4p, 7p) or as tolerated by patient. Nutritional Monitor Parameters - Elevate head of bed 30-45 degrees while feeding - Check gastric residuals every 4 hours when initiating feeding. May check every 6-8 hours once goal rate is achieved - Hold gastric feeds for residuals more than 500 mL. Avoid holding feeds for residuals < 500 mL without other signs of intolerance. EER: 1700 chao @ 30 chao/kg Pro: 83g @ 1.5 g/kg Monitoring/Evaluations: tube feeding tolerance, residuals, weight
[2019-06-11] MEDS: POLYETHYLENE GLYCOL 3350 17 GM POWD.PACK PO (10:48)
[2019-06-11] MEDS: VANCOMYCIN 750 MG/150 ML FROZ.PIGGY 150 MG IV ×2 (10:48→19:08)
[2019-06-11] MEDS: DOCUSATE ORAL LIQUID 100 MG/10 ML UDC PO ×2 (10:49→20:21)
--- NOTE | 2019-06-11 11:42 | CM.DANOTE ---
DCP: Case received, EMR reviewed and met with patient. Introduced self and role. Was able to meet with patient and obtain baseline status information regarding health and activity level, as well as living situation. DCP assessment completed with information currently available. Patient is a 73 year old female who admitted yesterday evening to the care of the hospitalist team. PCP: Dr. Ynes George, at [facility]. Payer: confirmed: Medicare/[employer]. Patient came to the hospital via ambulance secondary to having increased weakness. Patient has history of esophageal cancer, and is under the care of Dr. Barrera, oncology. Patient does have an underlying infection, and is getting IV antibiotics.Patient has a peg tube, and does her own feedings. When this renal case manager met with her, she was in the middle of giving herself her feeding. Patient is alert and oriented, lives alone, but is independent. She does have a son named Henrik, who she stated, is supportive, and also has a daughter, named Claire. Patient is independent at home, does her own feedings as well. P: DCP will continue to follow case closely as plan unfolds. She should be able to go home when she is medically stable, and when she can go on oral antibiotics. Sahra Cardona RN/Applied Computer Science Professor
--- NOTE | 2019-06-11 16:01 | P.PN_ITS ---
Subjective Subjective Date Patient Seen: 06/11/19 Time Patient Seen: 08:30 Interval history: Tessy wan is a 73-year-old female with a past medical history of esophageal cancer who presented with worsening weakness with inability to even give herself tube feedings. She complained of pain around her PEG tube yesterday which has improved today. She was started on broad-spectrum antibiotics with Zosyn and vanc given a market elevation in her white blood cell count and a procalcitonin. Her leukocytosis and procalcitonin have down trended today. She feels much better today and denies any pain around her PEG tube. She denies any fevers or chills today. Exam Vital Signs (past 8 hours): - 06/11/19 09:00 06/11/19 10:00 06/11/19 13:25 Temperature 99.2 F 99.2 F 99.1 F Pulse Rate 100 H 100 H 90 Respiratory Rate 20 20 18 Blood Pressure 95/45 L 95/45 L 89/55 L Pulse Oximetry 94 94 95 06/11/19 15:50 Temperature 98.4 F Pulse Rate 94 H Respiratory Rate 21 Blood Pressure 93/67 Pulse Oximetry 94 Oxygen Delivery Method Room Air Oxygen Flow Rate 0 Narrative Exam Narrative: GENERAL APPEARANCE: Thin appearing elderly female in no acute distress.. SKIN: Inspection of the skin reveals no rashes, ulcerations or petechiae. HEENT: The sclerae were anicteric and conjunctivae were pink and moist. Extraocular movements were intact and pupils were equal, round with normal accommodation. External inspection of the ears and nose showed no scars, lesi ons, or masses. Oral mucosa was slightly dry. NECK: Supple and symmetric. There was no thyroid enlargement, and no tenderness, or masses were felt. CHEST: Normal AP diameter and normal contour without any kyphoscoliosis. LUNGS: Auscultation of the lungs revealed no wheezes, rhonchi, or rales. Her slightly diminished breath sounds at the bases. CARDIOVASCULAR: There was a regular rate and rhythm without any murmurs, gallops, rubs. Peripheral pulses were 2+ and symmetric. ABDOMEN: Soft and nontender with normal bowel sounds. No ascites was noted. Gastric tube in place without surrounding erythema, induration, or purulence. MUSCULOSKELETAL: There was no tenderness or effusions noted. Muscle strength and tone were normal. EXTREMITIES: No cyanosis, clubbing or edema. NEUROLOGIC: Alert and oriented x 3. Normal affect. Gait was normal. Strength is +5/5 in the Upper Extremities and Lower Extremities Bilaterally. Sensation to touch was normal. Objective Labs Result Diagrams: 06/11/19 05:00 06/11/19 05:00 Labs: Laboratory Results - last 24 hr 06/10/19 06/10/19 06/10/19 16:08 16:08 16:08 WBC 29.7 H RBC 4.74 Hgb 13.0 Hct 39.1 MCV 82.5 MCH 27.5 MCHC 33.4 RDW 14.0 Plt Count 412 H Neut % (Auto) Not Reportable Lymph % (Auto) Not Reportable Becker % (Auto) Not Reportable Eos % (Auto) Not Reportable Baso % (Auto) Not Reportable Neut # (Auto) Lymph # (Auto) Not Reportable [place] # (Auto) Not Reportable Eos # (Auto) Baso # (Auto) Not Reportable Total Counted 100 Seg Neutrophils % 86.0 H Band Neutrophils % 10.0 H Lymphocytes % (Manual) 2.0 L Monocytes % (Manual) 2.0 Neutrophils # (Manual) 24220 H RBC Morphology Normal morphology Sodium 131 L Potassium 3.9 Chloride 93 L Carbon Dioxide 29 BUN 17 Creatinine 0.80 Estimated GFR > 60.0 BUN/Creatinine Ratio 21.3 Glucose 169 H Lactate Calcium 9.2 Total Bilirubin 1.1 AST 26 ALT 15 Alkaline Phosphatase 78 Total Protein 7.7 Albumin 3.8 Globulin 3.9 Albumin/Globulin Ratio 1.0 Lipase 13 L Procalcitonin 8.96 H Urine RBC Urine WBC Ur Squamous Epith Cells Urine Bacteria Ur Culture Indicated? Chlamy pneumoniae PCR Adenovirus (PCR) B.parapertussis DNA PCR Coronavirus OC43 (PCR) Coronavirus HKU1 (PCR) Coronavirus 229E (PCR) Coronavirus NL63 (PCR) Human Metapneumovir PCR Influenza Type A (PCR) Influenza Type B (PCR) M. pneumoniae (PCR) Parainfluenza 1 (PCR) Parainfluenza 2 (PCR) Parainfluenza 3 (PCR) Parainfluenza 4 (PCR) RSV (PCR) Entero/Rhino (PCR) 06/10/19 06/10/19 06/10/19 16:55 19:07 21:43 WBC RBC Hgb Hct MCV MCH MCHC RDW Plt Count Neut % (Auto) Lymph % (Auto) [place] % (Auto) Eos % (Auto) Baso % (Auto) Neut # (Auto) Lymph # (Auto) [place] # (Auto) Eos # (Auto) Baso # (Auto) Total Counted Seg Neutrophils % Band Neutrophils % Lymphocytes % (Manual) Monocytes % (Manual) Neutrophils # (Manual) RBC Morphology Sodium Potassium Chloride Carbon Dioxide BUN Creatinine Estimated GFR BUN/Creatinine Ratio Glucose Lactate 1.5 Calcium Total Bilirubin AST ALT Alkaline Phosphatase Total Protein Albumin Globulin Albumin/Globulin Ratio Lipase Procalcitonin Urine RBC None seen Urine WBC 30-100/hpf H Ur Squamous Epith Cells 1-5 /hpf Urine Bacteria Few (2-10) H Ur Culture Indicated? Specimen cultured Chlamy pneumoniae PCR Not detected Adenovirus (PCR) Not detected B.parapertussis DNA PCR Not detected Coronavirus OC43 (PCR) Not detected Coronavirus HKU1 (PCR) Not detected Coronavirus 229E (PCR) Not detected Coronavirus NL63 (PCR) Not detected Human Metapneumovir PCR Not detected Influenza Type A (PCR) Not detected Influenza Type B (PCR) Not detected M. pneumoniae (PCR) Not detected Parainfluenza 1 (PCR) Not detected Parainfluenza 2 (PCR) Not detected Parainfluenza 3 (PCR) Not detected Parainfluenza 4 (PCR) Not detected RSV (PCR) Not detected Entero/Rhino (PCR) Not detected 06/11/19 06/11/19 06/11/19 05:00 05:00 05:00 WBC 24.4 H RBC 3.43 L Hgb 9.5 L Hct 28.3 L MCV 82.6 MCH 27.8 MCHC 33.7 RDW 13.8 Plt Count 309 Neut % (Auto) 94.8 H Lymph % (Auto) 2.1 L [place] % (Auto) 1.8 L Eos % (Auto) 1.0 L Baso % (Auto) 0.3 Neut # (Auto) 53420 H Lymph # (Auto) 500 L Becker # (Auto) 400 Eos # (Auto) 200 Baso # (Auto) 100 Total Counted Seg Neutrophils % Band Neutrophils % Lymphocytes % (Manual) Monocytes % (Manual) Neutrophils # (Manual) RBC Morphology Sodium 129 L Potassium 3.3 L Chloride 101 Carbon Dioxide 24 BUN 20 H Creatinine 0.70 Estimated GFR > 60.0 BUN/Creatinine Ratio 28.6 H Glucose 120 H Lactate Calcium 7.7 L Total Bilirubin AST ALT Alkaline Phosphatase Total Protein Albumin Globulin Albumin/Globulin Ratio Lipase Procalcitonin 8.06 H Urine RBC Urine WBC Ur Squamous Epith Cells Urine Bacteria Ur Culture Indicated? Chlamy pneumoniae PCR Adenovirus (PCR) B.parapertussis DNA PCR Coronavirus OC43 (PCR) Coronavirus HKU1 (PCR) Coronavirus 229E (PCR) Coronavirus NL63 (PCR) Human Metapneumovir PCR Influenza Type A (PCR) Influenza Type B (PCR) M. pneumoniae (PCR) Parainfluenza 1 (PCR) Parainfluenza 2 (PCR) Parainfluenza 3 (PCR) Parainfluenza 4 (PCR) RSV (PCR) Entero/Rhino (PCR) Assessment & Plan Assessment & Plan narrative: Tessy grimes is a 73-year-old female with past medical history of esophageal cancer who presented with acute onset of weakness. She was admitted to Medicine for further management. 1. Weakness, acute, present on admission -patient with active malignancy and was so weak she could not provide herself tube feeds at home. She was given IV fluids in improved here. She was also started on antibiotics. There is concern for an underlying infection giving markedly leukocytosis and elevated procalcitonin. However no discrete source is found. She has colitis noted on C T which may be related to constipation, she does have a positive UA and urine cultures are pending, and she does have a new pleural effusion on CT imaging and is at risk for aspiration given her esophageal malignancy. She further had pain around her PEG tube site but this is improved today and there is no evidence of active infection. She was also dehydrated on admission with dry oral mucosa whi ch is slightly improved today. It also appears based on her CT that her malignancy is progressing and this could be the cause of her weakness as well given severe malnutrition. -continue IV fluids -restart tube feeds today with dietary assistance -continue antibiotics, including Zosyn and vanc until cultures are finalized. -continue to follow leukocytosis and procalcitonin, both of these are down trending 2. Leukocytosis, acute, present on admission -concerning for underlying infection but patient is not febrile and does not meet sepsis criteria. She has multiple possible sources, including a positive UA, new pleural effusion which could be secondary to infectious causes or her malignancy, colitis, and pain around her PEG tube site. She also is at risk for aspiration. Suspect most likely etiologies are aspiration or acute cystitis, however she remains on broad-spectrum antibiotics at this time given her improvement. - continue Zosyn and vanc -if she begins to worsen after resumption of tube feedings, there may be an issue with her PEG tube. This was placed at [facility]. May need general surgery consult for further recommendations and possible tube study. 3. Esophageal cancer, progressing, present on admission -patient reportedly follows with Dr. Barrera however there are no notes in the system. She has not received treatment and is working with a [facility] path currently for possible IV vitamin-C therapy. She had a PEG tube placement at [facility] in March. -continue tube feedings -appreciate dietary assistance 4. Chronic illness severe protein calorie malnutrition r/t physiological causes increasing nutrient needs due to illness, inability to consume sufficient PO nutrition aeb dx esophageal cancer, energy intake < 75% EER > 1mo, weight loss > 10% in 6 mo, on home tubefeeding for nutritional support. -appreciate dietary assistance, continue tube feedings with protein supplements. 5. Hypokalemia -patient was repleted, will restart tube feedings today. 6. Hyponatremia, likely chronic secondary to hypovolemia- -restart tube feedings 7. Opiate induced constipation, present on admission -patient reports symptoms of constipation since starting pain medications. She has significant stool burden on CT imaging. -initiated intensive bowel regimen today 8. Acute cystitis, present on admission -antibiotics as noted above. 9. Bilateral Pleural effusion, present on admission -etiology unclear at this time. But they are tiny on the right and small on the left. Could be secondary to esophageal malignancy or acute infection. -consider thoracentesis. Code: Full DVT: Lovenox daily Dispo: If patient's labs continued to improve and she feels better, may be able to discharge within an antibiotic regimen depending on most likely source which could be cystitis or possible aspiration, possibly tomorrow. Quality VTE Deep Vein Thrombosis/Pulmonary Embolism Present on Admission: No
[2019-06-12] VITALS (8 sets, daily range): BP systolic 93–134; BP diastolic 58–75; PULSE 75–87; RESP 16–18; TEMP 36.2–37.2; O2SAT 91–97
[2019-06-12] MEDS: VANCOMYCIN 750 MG/150 ML FROZ.PIGGY 150 MG IV ×2 (01:54→10:28)
[2019-06-12] MEDS: OXYCODONE 5 MG/5 ML ORAL SOLUTION PO ×6 (01:56→22:06)
--- NOTE | 2019-06-12 03:11 | PC.NURSE ---
Addendum entered by Mariluz Horton R.N. 06/12/19 05:56: Complains of 7/10 spasm like pain across abdomen and in back; medicated with Oxycodone elixer. Original Note: Patient assessed at 0000 and is alert and oriented. Breath sounds CTA with RA sat of 96%. HRR. Telemetry reading was SR. Denies nausea. Unable to swallow due to esophageal cancer so has PEG tube and is managing own tube feeds/care. Skin around tube insertion site is slightly pink with small amount blood on dressing. BT hypoactive. Voiding without dysuria, frequency or urgency. Is able to turn self in bed and SBA when up to bathroom. Denied any pain on assessment but then at 0156 complained of 7/10 back pain so was medicated with Oxycodone elixer via PEG tube. Refusing SCD's. Reports no falls in past 3 months; fall risk score is moderate and bed alarm is activated.
[2019-06-12 05:35] LABS: Add Manual Diff / Slide Review NO; Basophils Absolute Auto 0 /uL (0-100); Basophils Percent Auto 0.3 % (0-2); Eosinophils Absolute Auto 900 /uL (0-450); Eosinophils Percent Auto 7.3 % (2-4); Hematocrit 28.1 % (36-46); Hemoglobin 9.4 g/dL (12.0-16.0); Lymphocytes Absolute Auto 1100 /uL (1100-4500); Lymphocytes Percent Auto 8.8 % (25-40); Mean Corpuscular HGB Conc 33.3 % (30-36); Mean Corpuscular Hemoglobin 27.7 PG (26-34); Monocytes Absolute Auto 500 /uL (0-900); Monocytes Percent Auto 4.4 % (3-14); Neutrophils Absolute Auto 9700 /uL (1500-7000); Neutrophils Percent Auto 79.2 % (50-75); Platelet Count 269 X10^3/uL (150-400); Red Blood Cell Count 3.39 X10^6/uL (4.0-5.2); Red Cell Distribution Width 13.8 % (11.6-14.8); White Blood Cell Count 12.3 X10^3/uL (4.5-11.0)
[2019-06-12 05:37] LABS: Alanine Aminotransferase 11 IU/L (<35); Albumin 2.4 g/dL (3.5-5.0); Albumin Globulin Ratio 0.8 (1.0-2.8); Alkaline Phosphatase 46 U/L (38-126); Aspartate Aminotransferase 19 IU/L (14-36); BUN Creatinine Ratio 26.7 (6-22); Bilirubin Total 0.4 mg/dL (0.2-1.3); Bilirubin Unconjugated 0.4 mg/dL (0.0-1.1); Blood Urea Nitrogen 16 mg/dL (7-17); Calcium 8.1 mg/dL (8.4-10.2); Carbon Dioxide 24 mmol/L (22-32); Chloride 102 mmol/L (98-107); Estimated Glomerular Filt Rate > 60.0 mL/min (>60); Globulin 2.9 g/dL (1.7-4.1); Glucose 110 mg/dL (80-110); HEMOLYSIS < 15 (0-50); Phosphorous 2.5 mg/dL (2.8-4.1); Potassium 3.9 mmol/L (3.4-5.1); Sodium 133 mmol/L (137-145); Total Protein 5.3 g/dL (6.3-8.2)
[2019-06-12] MEDS: SODIUM CHLORIDE 0.9% 1,000 ML 150 ML IV (05:51)
[2019-06-12] MEDS: PIPERACILLIN-TAZO 3.375 GM/50 ML FROZ.PIGGY IV (05:51)
[2019-06-12] MEDS: ENOXAPARIN 40 MG/0.4 ML SYRINGE SUBCUT (09:30)
[2019-06-12 10:16] LABS: Vancomycin Trough 14.7 ug/mL (10-20)
--- NOTE | 2019-06-12 10:27 | DIET.PN ---
Dietary Progress Note RD f/u to see how pt is doing with bolus feeds of home formula. Pt sitting up in bed chatting with two visitors. Pt's insurance is covering her organic, plant based TF formula- E[employer]ice [employer], she would prefer Liquid Hope but so far they won't cover it. She expressed frustration that conventional formulas are full of sugar which is not good for people with cancer. Receives TF supplies though [employer] that starts with a c from [employer], this RD thinks it is [place]. Pt has been giving self boluses today, is not interested in transitioning to a pump at this time but expressed possibly being open to it in the future. Does not want to be hooked up to a pump, boluses are faster. This RD expressed the pump may be helpful as she was admitted for weakness and not being able to bolus feed herself. 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 Pt is open to hearing more about caregiver options to plan for the future.
[2019-06-12] MEDS: VANCOMYCIN TROUGH 1 REQUEST MISC (10:28)
--- NOTE | 2019-06-12 10:32 | PC.NURSE ---
Addendum entered by Karely Abbasi R.N. 06/12/19 14:06: Patient ambulating in halls, denies nausea, c/o dry mouth, swabs offered but patient declines. Patient denies dizziness, shortness of breath while ambulating. Addendum entered by Karely Abbasi R.N. 06/12/19 13:14: Late note (1200) patient's IV site is painful, note leaking around site with flush, minimal drawback. Site discontinued. Patient does not want a second IV, is a hard stick. Noted bruising from previous draws. Physician notified, medications altered to accommodate PEG tube administration. Original Note: Patient resting in bed with friends at bedside. A/Ox3, communicative and amicable to care. Ambulating independently to restroom without assistance, denies chest pain, shortness of breath at rest but a little bit with exertion. Denies n/v, patient does verbalize feeling bloated and discomfort but denies abdominal pain at this time. PEG tube is intact, baljeet has some feeding solution on it, site is free of redness, streaking, odor. Will change dressing. Patient confirms she fed herself this morning and had a bowel movement. Bowel sounds are active in all four quadrants. Patient reports back pain, PRN pain medication given. Lung sounds clear bilaterally, diminished in left lower base. Patient remains in own clothing and refuses SCDs, educated on DVT and stroke prevention. Patient refused morning bowel regime d/t recent bowel movement. Abx infusing, IV site is CDI, patient denies further needs at this time. Call light in reach.
--- NOTE | 2019-06-12 10:34 | P.PN_ITS ---
Subjective Subjective Date Patient Seen: 06/12/19 Time Patient Seen: 10:34 Interval history: She is seen today to follow-up her esophageal cancer, weakness, pleural effusions. She has some intestinal infection, likely an enteritis evident on CT scan. This has produced a significant leukocytosis which has improved with IV Zosyn and IV vancomycin. Her IV line has been difficult to maintain so we will be changing to oral antibiotics through the G- tube today. She says her pain continues to increase, as would be expected from progressive untreated esophageal cancer. She is still planning to begin vitamin C IV infusions as treatment for her cancer. She has a naturopathic physician in [facility] who offers that treatment. She goes to Oncology only for the pain medications, she says. The phosphorus level is 2.4 with a sodium of 133 and an albumin of 2.4. The procalcitonin has dropped from 8.06 down to 4.8. Exam Vital Signs (past 8 hours): - 06/12/19 03:00 06/12/19 07:00 06/12/19 07:40 Temperature 97.2 F L 98 F Pulse Rate 86 86 Respiratory Rate 18 17 Blood Pressure 93/60 100/58 L Pulse Oximetry 91 93 96 Oxygen Delivery Method Room Air Oxygen Flow Rate 0 Narrative Exam Narrative: She is alert and oriented x3. Heart is regular rate and rhythm without murmur. Lungs are clear to auscultation bilaterally. Extremities have no ankle edema. Abdomen is tender in the epigastric area, bowel sounds active, no palpable tumor. A G-tube is in place. Objective Labs Result Diagrams: 06/12/19 05:20 06/12/19 05:20 Labs: Laboratory Results - last 24 hr 06/12/19 06/12/19 06/12/19 05:20 05:20 05:20 WBC 12.3 H RBC 3.39 L Hgb 9.4 L Hct 28.1 L MCV 83.0 MCH 27.7 MCHC 33.3 RDW 13.8 Plt Count 269 Neut % (Auto) 79.2 H Lymph % (Auto) 8.8 L [place] % (Auto) 4.4 Eos % (Auto) 7.3 H Baso % (Auto) 0.3 Neut # (Auto) 9700 H Lymph # (Auto) 1100 [place] # (Auto) 500 Eos # (Auto) 900 H Baso # (Auto) 0 Sodium 133 L Potassium 3.9 Chloride 102 Carbon Dioxide 24 BUN 16 Creatinine 0.60 Estimated GFR > 60.0 BUN/Creatinine Ratio 26.7 H Glucose 110 Calcium 8.1 L Phosphorus 2.5 L Magnesium 2.0 Total Bilirubin 0.4 Conjugated Bilirubin 0.0 Unconjugated Bilirubin 0.4 AST 19 ALT 11 Alkaline Phosphatase 46 Total Protein 5.3 L Albumin 2.4 L Globulin 2.9 Albumin/Globulin Ratio 0.8 L Procalcitonin 4.80 H Vancomycin Trough 06/12/19 09:39 WBC RBC Hgb Hct MCV MCH MCHC RDW Plt Count Neut % (Auto) Lymph % (Auto) [place] % (Auto) Eos % (Auto) Baso % (Auto) Neut # (Auto) Lymph # (Auto) [place] # (Auto) Eos # (Auto) Baso # (Auto) Sodium Potassium Chloride Carbon Dioxide BUN Creatinine Estimated GFR BUN/Creatinine Ratio Glucose Calcium Phosphorus Magnesium Total Bilirubin Conjugated Bilirubin Unconjugated Bilirubin AST ALT Alkaline Phosphatase Total Protein Albumin Globulin Albumin/Globulin Ratio Procalcitonin Vancomycin Trough 14.7 Assessment & Plan Assessment & Plan narrative: Tessy grimes is a 73-year-old female with past medical history of esophageal cancer who presented with acute onset of weakness. She was admitted to Medicine for further management. 1. Leukocytosis of Small and Large Bowel Enteritis, acute, present on admission -change to G-tube antibiotics of amoxicillin clavulanate now that IV access has become a problem for her Zosyn. -consider repeat CT abdomen. 2. Esophageal cancer, progressing, present on admission - She goes to Dr. Barrera only for pain medicine. She has not received treatment and is working with a business team leader currently for possible IV vitamin-C therapy. She had a PEG tube placement at [facility] in March. -continue tube feedings -appreciate dietary assistance 3. Chronic illness severe protein calorie malnutrition r/t physiological causes increasing nutrient needs due to illness, inability to consume sufficient PO nutrition aeb dx esophageal cancer, energy intake < 75% EER > 1mo, weight loss > 10% in 6 mo, on home tubefeeding for nutritional support. -appreciate dietary assistance, continue tube feedings with protein supplements. 4. Hypokalemia -resolved 5. Hyponatremia, likely chronic secondary to hypovolemia- -continue tube feedings 6. Opiate induced constipation, present on admission -patient reports symptoms of constipation since starting pain medications. She has significant stool burden on CT imaging. -continue bowel regimen 7. Acute cystitis, present on admission -ruled out on culture 8. Bilateral Pleural effusion, present on admission -etiology unclear at this time. But they are tiny on the right and small on the left. Could be secondary to esophageal malignancy or acute infection. -repeat CXR 06/12 Code: Full DVT: Lovenox daily Dispo: If patient's labs continued to improve and she feels better, may be able to discharge tomorrow Quality VTE Deep Vein Thrombosis/Pulmonary Embolism Present on Admission: No
--- NOTE | 2019-06-12 12:09 | DI.RAD.S_ITS ---
PROCEDURE: XR CHEST 2V INDICATIONS: Pleural Effusion TECHNIQUE: 2 views of the chest were acquired. COMPARISON: [facility], CR, XR CHEST 2V, 09/22/2018, 15:19. FINDINGS: Surgical changes and devices: None. Lungs and pleura: Lungs are abnormal with relatively large lung volumes and flattening of the diaphragm on the lateral view, and there is also superimposed pneumonia at the retrocardiac left lower lobe with a very small subpulmonic pleural effusion. No pleural effusions or pneumothorax. Mediastinum: Mediastinal contours are normal. Heart size is normal. Bones and chest wall: No suspicious bony abnormalities. Soft tissues appear unremarkable. IMPRESSION: Left lower lobe pneumonia with very small subpulmonic left effusion, superimposed on COPD. Dictated by: Yassine Eddy M.D. on 06/12/2019 at 12:34 Approved by: Yassine Eddy M.D. on 06/12/2019 at 12:35
--- NOTE | 2019-06-12 12:53 | CM.DPC ---
DCP: continued: case received, discussed in Team Rounds and then met with pt. Introduced self and role. Pt very agreeable to talk while she was in process of doing her bolus tube feeds (using the [employer] formula.) She confirms she gets this from plus supplies from [facility]. Asked if she would like [facility] contacted about her hospital admission and she stated that she would just call them when she needs more supplies. Today she is mobilizing independently in the room. Dressed in her own clothing, not a hospital gown. Pt clarifies that she does see Dr. Barrera but not at the [facility] in [place]. She sees him at the [facility] where he also works. She had her peg tube placed in March 2019 at [facility]. She does see a naturopathic physician whom she chooses not to name in the [place] area for alternative treatment therapies. Asked about Advanced Directives. She says she has these documents at home and I am in process of completing them. She has not given anyone POA yet. Discussed the benefit of this as she is very clear re the alternate treatment pathway she has chosen and in case she was unable to speak for herself she would have someone who could continue to advocate for her. She admits this would be helpful. She says she is part of the [employer] community and I have great support from them but realizes that a specific person identifies as POA would further support her belief system and goals of care. Pt at this time denies any need for future resources. Did offer the [address] [facility] Senior Resource Booklet which she had not seen before and she expressed thankfulness for it. She says her son Henrik Vasquez/Juli or a friend will likely pick her up at d/c. (She clarifies that Claire Vasquez is her granddaughter who lives in [place]) Agreed to check in and follow for next couple days for any prn d/c planning assist that may arise.
[2019-06-12] MEDS: AMOXICILLIN TUBE ×2 (15:44→20:31)
[2019-06-12] MEDS: POTASSIUM CLAV TUBE ×2 (15:44→20:31)
[2019-06-12] MEDS: DOCUSATE ORAL LIQUID 100 MG/10 ML UDC PO (20:31)
[2019-06-13] VITALS (7 sets, daily range): BP systolic 130–143; BP diastolic 60–77; PULSE 90–94; RESP 16–20; TEMP 36.4–37.2; O2SAT 92–96
[2019-06-13] MEDS: OXYCODONE 5 MG/5 ML ORAL SOLUTION PO ×4 (00:26→09:49)
[2019-06-13 05:53] LABS: Add Manual Diff / Slide Review NO; Basophils Absolute Auto 0 /uL (0-100); Basophils Percent Auto 0.5 % (0-2); Eosinophils Absolute Auto 500 /uL (0-450); Eosinophils Percent Auto 6.2 % (2-4); Hemoglobin 10.7 g/dL (12.0-16.0); Lymphocytes Absolute Auto 1400 /uL (1100-4500); Lymphocytes Percent Auto 16.4 % (25-40); Mean Corpuscular HGB Conc 33.5 % (30-36); Mean Corpuscular Hemoglobin 27.6 PG (26-34); Mean Corpuscular Volume 82.3 fL (80-100); Monocytes Absolute Auto 600 /uL (0-900); Monocytes Percent Auto 7.1 % (3-14); Neutrophils Absolute Auto 5800 /uL (1500-7000); Neutrophils Percent Auto 69.8 % (50-75); Platelet Count 348 X10^3/uL (150-400); Red Blood Cell Count 3.89 X10^6/uL (4.0-5.2); Red Cell Distribution Width 13.9 % (11.6-14.8); White Blood Cell Count 8.4 X10^3/uL (4.5-11.0)
[2019-06-13 06:07] LABS: Alanine Aminotransferase 11 IU/L (<35); Albumin 2.6 g/dL (3.5-5.0); Albumin Globulin Ratio 0.8 (1.0-2.8); Alkaline Phosphatase 54 U/L (38-126); Aspartate Aminotransferase 18 IU/L (14-36); Bilirubin Total 0.4 mg/dL (0.2-1.3); Bilirubin Unconjugated 0.3 mg/dL (0.0-1.1); Blood Urea Nitrogen 11 mg/dL (7-17); Calcium 8.5 mg/dL (8.4-10.2); Carbon Dioxide 28 mmol/L (22-32); Chloride 105 mmol/L (98-107); Estimated Glomerular Filt Rate > 60.0 mL/min (>60); Globulin 3.1 g/dL (1.7-4.1); Glucose 107 mg/dL (80-110); HEMOLYSIS < 15 (0-50); Potassium 3.6 mmol/L (3.4-5.1); Sodium 135 mmol/L (137-145); Total Protein 5.7 g/dL (6.3-8.2)
[2019-06-13 06:21] LABS: Procalcitonin 2.51 ng/mL (<0.5)
[2019-06-13] MEDS: DOCUSATE ORAL LIQUID 100 MG/10 ML UDC PO ×2 (09:21→21:10)
[2019-06-13] MEDS: AMOXICILLIN TUBE ×3 (09:45→21:10)
[2019-06-13] MEDS: POTASSIUM CLAV TUBE ×3 (09:45→21:10)
[2019-06-13] MEDS: METHADONE INTENSOL 10 MG/ML ORAL.CONC 4 MG PO ×2 (10:32→21:10)
--- NOTE | 2019-06-13 10:41 | DI.CT.S_ITS ---
PROCEDURE: CT ABDOMEN PELVIS WO CON INDICATIONS: Abdominal Pain TECHNIQUE: Noncontrast 5 mm thick sections acquired from the diaphragms to the symphysis. 5 mm coronal and sagittal reformats were then performed. For radiation dose reduction, the following was used: automated exposure control, adjustment of mA and/or kV according to patient size. COMPARISON: [facility], CT, CT CHEST ABD PEL W CON, 06/10/2019, 17:24. FINDINGS: Image quality: Excellent. ABDOMEN: Lung bases: There is a small to moderate left-sided pleural effusion and a small right-sided pleural effusion. There is a moderate hiatal hernia. Heart size is normal. There is a mild pericardial effusion. Solid organs: Liver is normal in size. Gallbladder wall does not appear thickened. Pancreas is normal in contours. Spleen is normal in size. No adrenal nodules. Kidneys are normal in size, without hydronephrosis or nephrolithiasis. Peritoneum and bowel: A gastrostomy tube is seen, although the tip does not quite reach the gastric lumen, as demonstrated on series 2 image 26. Unenhanced bowel loops demonstrate normal wall thickness and caliber. No free air. There is mild to moderate ascites. Diffuse fatty stranding can be seen throughout the mesentery. There is a moderate amount of stool seen within the colon. Nodes and vessels: No retroperitoneal or mesenteric adenopathy by size criteria. Aorta and inferior vena cava are normal in caliber. Atherosclerotic calcification is noted. Miscellaneous: No ventral hernias. Generalized body wall edema can be seen. PELVIS: Genitourinary: Bladder wall thickness is normal. Miscellaneous: No inguinal adenopathy. Bilateral fat-containing inguinal hernias are seen. Bones: There are a few scattered areas of bony sclerosis seen. No vertebral body compression fractures. Mild dextroconvex scoliotic curvature is seen. Age-appropriate bony degenerative changes are seen. IMPRESSION: There is a mild to moderate amount of ascites seen. Diffuse fatty stranding can be seen throughout the mesentery. A gastrostomy tube is seen, which does not quite reach the gastric lumen. Please correlate with known patient history. Mild pericardial effusion. A few areas of bony sclerosis are seen, which may represent metastatic disease in this patient with a known history of esophageal cancer. Incidental note is made of: Moderate hiatal hernia Bilateral fat-containing inguinal hernias Note: Finding of improperly positioned gastric tube discussed by telephone with Brianne Curtis (covering for Dr. Montgomery) at 12:32 PM [place] time on June 13, 2019. Dictated by: Leonardo Boyle M.D. on 06/13/2019 at 11:18 Approved by: Leonardo Boyle M.D. on 06/13/2019 at 11:33
--- NOTE | 2019-06-13 11:24 | PM.PN.1 ---
Subjective Subjective Date Patient Seen: 06/13/19 Time Patient Seen: 11:25 Interval history: She is seen today to follow up her esophageal cancer, epigastric pain, feeding tube and new left lower lobe pneumonia. Her chest x-ray showed pneumonia yesterday. This explains her infectious source and the dropping white count with antibiotic treatment. She says the area where the feeding tube is has become quite painful and that it recently came out partially and so she pushed it back in ?because it should not be out like that? instead of calling for assistance. On my exam the tube appears to be in appropriate location but a CT scan done today shows that it is misplaced. Surgery was consulted and was able to replace it in the correct location with relief of her discomfort. We also talked for quite a while about changing from as needed short-acting opiates to a longer-acting regimen and she is agreeable to a trial of methadone. Her oxycodone 30 mg per day 24 hour intake equivalents to 4 mg methadone twice a day. Exam Vital Signs (past 8 hours): - 06/13/19 05:32 06/13/19 08:20 06/13/19 09:00 Temperature 97.7 F 97.5 F L Pulse Rate 91 H 93 H Respiratory Rate 18 18 Blood Pressure 143/76 H 130/60 Pulse Oximetry 92 96 95 Oxygen Delivery Method Room Air Oxygen Flow Rate 0 Narrative Exam Narrative: She is alert and oriented x3, no apparent distress Heart is regular rate and rhythm without murmur Lungs are clear to auscultation bilaterally Extremities have no ankle edema Abdomen is soft, diffusely tender, worse in the epigastric area and around the PEG tube. No distinct masses are felt. Objective Labs Result Diagrams: 06/13/19 05:35 06/13/19 05:35 Labs: Laboratory Results - last 24 hr 06/13/19 06/13/19 06/13/19 05:35 05:35 05:35 WBC 8.4 RBC 3.89 L Hgb 10.7 L Hct 32.0 L MCV 82.3 MCH 27.6 MCHC 33.5 RDW 13.9 Plt Count 348 Neut % (Auto) 69.8 Lymph % (Auto) 16.4 L [place] % (Auto) 7.1 Eos % (Auto) 6.2 H Baso % (Auto) 0.5 Neut # (Auto) 5800 Lymph # (Auto) 1400 [place] # (Auto) 600 Eos # (Auto) 500 H Baso # (Auto) 0 Sodium 135 L Potassium 3.6 Chloride 105 Carbon Dioxide 28 BUN 11 Creatinine 0.50 L Estimated GFR > 60.0 BUN/Creatinine Ratio 22.0 Glucose 107 Calcium 8.5 Phosphorus 3.0 Magnesium 2.0 Total Bilirubin 0.4 Conjugated Bilirubin 0.0 Unconjugated Bilirubin 0.3 AST 18 ALT 11 Alkaline Phosphatase 54 Total Protein 5.7 L Albumin 2.6 L Globulin 3.1 Albumin/Globulin Ratio 0.8 L Procalcitonin 2.51 H Assessment & Plan Assessment & Plan narrative: Tessy grimes is a 73-year-old female with past medical history of esophageal cancer who presented with acute onset of weakness. She was admitted to Medicine for further management. 1. Leukocytosis with Small and Large Bowel Enteritis, acute, present on admission -changed to G-tube antibiotics of amoxicillin clavulanate yesterday after her IV came out -repeat CT abdomen 06/13 basically unchanged except for peg tube displacement which has been corrected by Dr. Vaughn. 2. Esophageal cancer, progressing, present on admission - She goes to Dr. Barrera at [facility] only for pain medicine. She has not received treatment and is working with a electrifier operator currently for possible IV vitamin-C therapy. She had a PEG tube placement at [facility] in March. -continue tube feedings -appreciate dietary assistance -Begin on long acting opiates of Methadone at 4 mg per peg BID. This dose should be stable for the next 72 hours before increasing if ineffective at that dose. Continue short-acting oxycodone prn. 3. Chronic illness severe protein calorie malnutrition r/t physiological causes increasing nutrient needs due to illness, inability to consume sufficient PO nutrition aeb dx esophageal cancer, energy intake < 75% EER > 1mo, weight loss > 10% in 6 mo, on home tubefeeding for nutritional support. -appreciate dietary assistance, continue tube feedings with protein supplements. Tube feeding placement corrected today. 4. Hypokalemia -resolved 5. Hyponatremia, likely chronic secondary to hypovolemia- -continue tube feedings 6. Opiate induced constipation, present on admission -patient reports symptoms of constipation since starting pain medications. She has significant stool burden on CT imaging. -continue bowel regimen 7. Acute cystitis, present on admission -ruled out on culture 8. Bilateral Pleural effusion, present on admission -etiology unclear at this time. But they are tiny on the right and small on the left. Could be secondary to esophageal malignancy or acute infection. -repeat CXR shows Pneumonia - now on Augmentin 9. LLL Pneumonia -Augmentin per PEG after Zosyn for 3 days IV. Code: Full DVT: Lovenox daily Dispo: If patient's labs continued to improve and she feels better, may be able to discharge soon. Quality VTE Deep Vein Thrombosis/Pulmonary Embolism Present on Admission: No
--- NOTE | 2019-06-13 12:28 | PC.NURSE ---
Day shift: Pt off unit for CT.
[2019-06-14] VITALS (10 sets, daily range): BP systolic 129–162; BP diastolic 79–87; PULSE 81–102; RESP 18; TEMP 36.7–37.2; O2SAT 91–98
[2019-06-14] MEDS: OXYCODONE 5 MG/5 ML ORAL SOLUTION 10 MG PO (05:13)
[2019-06-14 05:59] LABS: Add Manual Diff / Slide Review NO; Basophils Absolute Auto 100 /uL (0-100); Basophils Percent Auto 0.9 % (0-2); Eosinophils Absolute Auto 400 /uL (0-450); Eosinophils Percent Auto 5.4 % (2-4); Hematocrit 31.9 % (36-46); Hemoglobin 10.5 g/dL (12.0-16.0); Lymphocytes Absolute Auto 1600 /uL (1100-4500); Mean Corpuscular Volume 81.7 fL (80-100); Monocytes Absolute Auto 900 /uL (0-900); Monocytes Percent Auto 10.7 % (3-14); Neutrophils Absolute Auto 5300 /uL (1500-7000); Platelet Count 355 X10^3/uL (150-400); Red Cell Distribution Width 13.8 % (11.6-14.8); White Blood Cell Count 8.3 X10^3/uL (4.5-11.0)
[2019-06-14 06:13] LABS: Alanine Aminotransferase 12 IU/L (<35); Albumin 2.7 g/dL (3.5-5.0); Albumin Globulin Ratio 0.9 (1.0-2.8); Alkaline Phosphatase 53 U/L (38-126); Aspartate Aminotransferase 20 IU/L (14-36); BUN Creatinine Ratio 17.5 (6-22); Bilirubin Total 0.5 mg/dL (0.2-1.3); Bilirubin Unconjugated 0.4 mg/dL (0.0-1.1); Blood Urea Nitrogen 7 mg/dL (7-17); Calcium 8.2 mg/dL (8.4-10.2); Carbon Dioxide 30 mmol/L (22-32); Chloride 99 mmol/L (98-107); Estimated Glomerular Filt Rate > 60.0 mL/min (>60); Globulin 3.1 g/dL (1.7-4.1); Glucose 111 mg/dL (80-110); HEMOLYSIS < 15 (0-50); Magnesium 1.8 mg/dL (1.6-2.3); Phosphorous 3.4 mg/dL (2.8-4.1); Potassium 2.8 mmol/L (3.4-5.1); Sodium 133 mmol/L (137-145); Total Protein 5.8 g/dL (6.3-8.2)
[2019-06-14 06:27] LABS: Procalcitonin 0.93 ng/mL (<0.5)
[2019-06-14] MEDS: POTASSIUM CHLORIDE 20 MEQ/15 ML UDC 40 MEQ TUBE ×2 (09:00→17:24)
[2019-06-14] MEDS: POTASSIUM CLAV TUBE ×3 (09:00→21:21)
[2019-06-14] MEDS: DOCUSATE ORAL LIQUID 100 MG/10 ML UDC PO (09:00)
[2019-06-14] MEDS: AMOXICILLIN TUBE ×3 (09:00→21:21)
[2019-06-14] MEDS: METHADONE INTENSOL 10 MG/ML ORAL.CONC 4 MG PO ×2 (09:03→21:15)
--- NOTE | 2019-06-14 09:23 | PM.PN.1 ---
Subjective Subjective Date Patient Seen: 06/14/19 Time Patient Seen: 09:24 Interval history: She is seen today to follow-up her esophageal cancer, peg tube displacement, intractable abdominal pain, hypokalemia. Her potassium today is 2.8. The hemoglobin is 10.5. The blood pressure 162/79. Her pain is much improved with just 2 doses of methadone so far. Overnight she needed only 1 dose of oxycodone. Yesterday surgery was able to remove and replace in position her current PEG tube with much relief of her symptoms. Exam Vital Signs (past 8 hours): - 06/14/19 04:01 06/14/19 08:00 06/14/19 08:26 Temperature 98.9 F 98.3 F Pulse Rate 87 88 Respiratory Rate 18 18 Blood Pressure 162/79 H 140/81 Pulse Oximetry 93 92 98 Oxygen Delivery Method Room Air Oxygen Flow Rate 0 Narrative Exam Narrative: Alert and oriented x3. No apparent distress. She is smiling and very relieved to have some improvement in her pain. Heart is regular rate and rhythm without murmur Lungs clear to auscultation bilaterally Abdomen is much less tender, bowel sounds positive, no organomegaly, peg tube intact and in place. No ankle edema Objective Labs Result Diagrams: 06/14/19 05:35 06/14/19 05:35 Labs: Laboratory Results - last 24 hr 06/14/19 06/14/19 06/14/19 05:35 05:35 05:35 WBC 8.3 RBC 3.90 L Hgb 10.5 L Hct 31.9 L MCV 81.7 MCH 27.0 MCHC 33.0 RDW 13.8 Plt Count 355 Neut % (Auto) 64.0 Lymph % (Auto) 19.0 L [place] % (Auto) 10.7 Eos % (Auto) 5.4 H Baso % (Auto) 0.9 Neut # (Auto) 5300 Lymph # (Auto) 1600 [place] # (Auto) 900 Eos # (Auto) 400 Baso # (Auto) 100 Sodium 133 L Potassium 2.8 L Chloride 99 Carbon Dioxide 30 BUN 7 Creatinine 0.40 L Estimated GFR > 60.0 BUN/Creatinine Ratio 17.5 Glucose 111 H Calcium 8.2 L Phosphorus 3.4 Magnesium 1.8 Total Bilirubin 0.5 Conjugated Bilirubin 0.0 Unconjugated Bilirubin 0.4 AST 20 ALT 12 Alkaline Phosphatase 53 Total Protein 5.8 L Albumin 2.7 L Globulin 3.1 Albumin/Globulin Ratio 0.9 L Procalcitonin 0.93 H Assessment & Plan Assessment & Plan narrative: This is a 73-year-old female with untreated esophageal cancer who presented with acute onset of weakness. 1. Leukocytosis with Small and Large Bowel Enteritis, acute, present on admission -changed to G-tube antibiotics of amoxicillin clavulanate 06/12 after her IV came out -repeat CT abdomen 06/13 basically unchanged except for peg tube displacement which has been corrected by Dr. Vaughn on 06/13. 2. Esophageal cancer, progressing, present on admission - She goes to Dr. Barrera at [facility] only for pain medicine. She has not received treatment and is working with a track hoe operator currently for possible IV vitamin-C therapy. She had a PEG tube placement at [facility] in March. -continue tube feedings -appreciate dietary assistance -Began on long acting opiates of Methadone at 4 mg per peg BID 06/13. This dose should be stable for the next 72 hours before increasing if ineffective at that dose. Continue short-acting oxycodone prn. Obtain baseline EKG for completeness (QT interval measurement) 3. Chronic illness severe protein calorie malnutrition r/t physiological causes increasing nutrient needs due to illness, inability to consume sufficient PO nutrition aeb dx esophageal cancer, energy intake < 75% EER > 1mo, weight loss > 10% in 6 mo, on home tubefeeding for nutritional support. -appreciate dietary assistance, continue tube feedings with protein supplements. Tube feeding placement corrected today. 4. Hypokalemia -Unclear etiology -resolved 06/13 and then recurred 06/14 at 2.8. -supplement Kcl IV and follow daily. 5. Hyponatremia, likely chronic secondary to hypovolemia- -continue tube feedings 6. Opiate induced constipation, present on admission -patient reports symptoms of constipation since starting pain medications. She has significant stool burden on CT imaging. -continue bowel regimen 7. Acute cystitis, present on admission -ruled out on culture 8. Bilateral Pleural effusion, present on admission -etiology unclear at this time. But they are tiny on the right and small on the left. Could be secondary to esophageal malignancy or acute infection. -repeat CXR 06/12 shows Pneumonia - now on Augmentin 9. LLL Pneumonia -Augmentin 06/12 per PEG after Zosyn for 3 days IV. Code: Full DVT: Lovenox daily Dispo: Likely home tomorrow on Methadone. Quality VTE Deep Vein Thrombosis/Pulmonary Embolism Present on Admission: No
[2019-06-14] MEDS: OXYCODONE 5 MG/5 ML ORAL SOLUTION PO ×2 (18:30→21:15)
[2019-06-15 00:05] VITALS: BP 145/80; PULSE 102; RESP 16; TEMP 37.1; O2SAT 90
[2019-06-15] MEDS: OXYCODONE 5 MG/5 ML ORAL SOLUTION 10 MG PO ×2 (03:26→06:58)
[2019-06-15 04:05] VITALS: BP 142/82; PULSE 99; RESP 16; TEMP 36.9; O2SAT 95
[2019-06-15 05:47] LABS: Blood Urea Nitrogen 6 mg/dL (7-17); Calcium 8.7 mg/dL (8.4-10.2); Carbon Dioxide 30 mmol/L (22-32); Chloride 102 mmol/L (98-107); Estimated Glomerular Filt Rate > 60.0 mL/min (>60); Glucose 106 mg/dL (80-110); HEMOLYSIS < 15 (0-50); Potassium 3.8 mmol/L (3.4-5.1); Sodium 135 mmol/L (137-145)
[2019-06-15 08:00] VITALS: BP 135/73; PULSE 83; RESP 17; TEMP 36.7; O2SAT 92
[2019-06-15 08:14] VITALS: O2SAT 94
[2019-06-15] MEDS: POTASSIUM CLAV TUBE (09:26)
[2019-06-15] MEDS: AMOXICILLIN TUBE (09:26)
[2019-06-15] MEDS: LACTOBACILLUS ACIDOPHILUS TABLET 1 EACH PO (09:32)
[2019-06-15] MEDS: METHADONE INTENSOL 10 MG/ML ORAL.CONC 4 MG PO (09:32)
--- NOTE | 2019-06-15 11:21 | CM.DPC ---
DCP Cont: Spoke to patient's affiliate manager, Adwoa, at [facility]. Her phone number is: [phone]. She is following patient, she has not yet met her. She was wondering about her status, if she was getting discharged today. Let her know that patient could possibly discharge today, but pending note from hospitalist. Hospitalist at morning rounds stated that she could potentially discharge today. P: DCP will continue to follow patient. If she does discharge today, will update Adwoa, for she wants to schedule a follow up appointment with her primary care provider, Swetha George. Sahra Cardona, JEFF/Business Relationship Manager
[2019-06-15 12:15] VITALS: BP 140/85; PULSE 93; RESP 17; TEMP 37; O2SAT 95
[2019-06-15 14:02] LABS: Clostridium Difficile Tox PCR Negative for C. diff
--- NOTE | 2019-06-15 15:03 | P.DS_ITS ---
History of Present Illness History of Present Illness Date Patient Seen: 06/10/19 Chief complaint: Weakness Narrative: Written by Anya BAUMANN: Tessy Vasquez is a 73 y.o. female with a diagnosis of esphogeal cancer that uses a feeding tube developed generalized weakness over the past 24 hours to the point she was unable to do her tube feedings. She denies fever or chills, shortness of breath, throat pain, has been very thirsty but became nauseated when she tried to drink water. Denies chest pain, abdominal pain, but noted upon exam that her feeding tube site was bleeding which is not normal. She does endorse chronic constipation due to taking oxycodone. Denies upper or lower extremity neuropathies, has intermittent depression. She is currently under the care of Dr. Fajardo, oncologist and Ynes George PCP of [facility]. States she is not pursuing traditional chemotherapy but was going to start IV Vitamin C through a naturepath[employer] physician she sees. Discharge Providers Provider Date of admission: 06/10/19 20:18 Discharge Date: 06/15/19 Consults: 06/10/19 20:28 Consult to Dietitian, Adult Routine Comment: Reason For Exam: Tube feeding 06/10/19 21:02 Consult to Dietitian, Adult Routine Comment: Reason For Exam: reduced nutrition to PEG tube Discharge provider: Edilia Yin DO Summary Hospital Course Discharge Diagnosis: 1. Esophageal cancer, progressing, present on admission 2. Leukocytosis with small and large bowel enteritis, acute, present on admission. Resolved. 3. PEG tube displacement, unclear if present on admission. Resolved. 4. Chronic illness severe protein calorie malnutrition, present on admission. Stable. 5. Acute intermittent hypokalemia, not present on admission. Resolved. 6. Hyponatremia, likely chronic secondary to hypovolemia, present on admission. Stable. 7. Opiate induced constipation, present on admission. Resolved. 8. LLL Pneumonia, possibly present on admission. Resolved. 9. Bilateral Pleural effusion, present on admission 10. Ruled out UTI. Hospital Course: Tessy Vasquez is a 73-year-old female with untreated esophageal cancer who presented with acute onset of weakness. 1. Esophageal cancer, progressing, present on admission -She goes to Dr. Barrera at [facility] only for pain medicine. She has not received treatment and is working with a public interviewer currently for possible IV vitamin-C therapy. She had a PEG tube placement at [facility] in March. -Continued tube feedings. -Consulted public accountant and we appreciate her recommendations. -Began on long acting opiates of Methadone at 4 mg per peg BID and short-acting oxycodone prn and discharged with temporary prescription until she can follow-up with Dr. Barrera to continue prescription. 2. Leukocytosis with small and large bowel enteritis, acute, present on admission. Resolved. -Completed antibiotic course with Zosyn and Augmentin. -Repeat CT abdomen 06/13 basically unchanged except for peg tube displacement which has been corrected by Dr. Vaughn on 06/13. 3. PEG tube displacement, unclear if present on admission. Resolved. -Repeat CT abdomen 06/13 basically unchanged except for peg tube displacement which has been corrected by Dr. Vaughn on 06/13. 4. Chronic illness severe protein calorie malnutrition, present on admission. Stable. -Secondary to physiological causes increasing nutrient needs due to illness, inability to consume sufficient PO nutrition aeb dx esophageal cancer, energy intake < 75% EER > 1mo, weight loss > 10% in 6 mo, on home tube feeding for nutritional support. -Appreciate dietary assistance, continue tube feedings with protein supplements. 5. Acute intermittent hypokalemia, not present on admission. Resolved. -Continued to monitor potassium level and replete as necessary. 6. Hyponatremia, likely chronic secondary to hypovolemia, present on admission. Stable. -Continued tube feedings and flushes. 7. Opiate induced constipation, present on admission. Resolved. -Patient reports symptoms of constipation since starting pain medications. She has significant stool burden on CT imaging. -Continued bowel regimen then held for several days due to Augmentin induced diarrhea. C. diff ruled out. 8. LLL Pneumonia, possibly present on admission. Resolved. -Unclear etiology but possibly due to aspiration. -Completed course with Zosyn and Augmentin. 9. Bilateral Pleural effusion, present on admission -Etiology unclear but likely due to malignancy versus infection. Trace on the right and small on the left. -Repeat CXR 06/12 demonstrated pneumonia and completed. 10. Ruled out UTI. Exam Vital Signs (past 8 hours): Oxygen Delivery Method Room Air Oxygen Flow Rate 0 Narrative Exam Narrative: General: Older thin female sitting in bed and in no acute distress, appears chronically ill, moderately anxious but otherwise appropriately interactive HEENT: Normocephalic, atraumatic. External ears without defect. Pupils equal, round, and reactive to light. Anicteric sclerae, moist conjunctivae, and no lid lag. Oropharynx free of erythema and cobble stoning with moist mucosa. Neck: Supple with full range of motion. No lymphadenopathy or thyromegaly. Cardiovascular: Regular rate and rhythm without murmurs, rubs, or gallops appreciated Pulmonary: Clear to auscultation bilaterally without crackles, wheezes, or rhonchi. Normal respiratory effort with no use of accessory muscles. Abdomen: Soft, hyperactive bowel sounds, nontender, nondistended. No hepatosplenomegaly or masses appreciated. PEG tube in place. Extremities: No clubbing, cyanosis, or edema. Skin: Normal temperature, turgor, and texture; no rash, ulcers, or subcutaneous nodules appreciated. Neurological: Cranial nerves grossly intact. Psychiatric: Anxious mood and affect. Alert and oriented to person, place, and time. Objective Labs Result Diagrams: 06/14/19 05:35 06/15/19 05:22 Discharge Plan Discharge Plan Patient Disposition: Home Discharge comment: You're being discharged home. You have been prescribed methadone 4 mg twice daily (every 12 hours) and oxycodone 5 mg every 2-4 hours as needed only for severe breakthrough pain. Please follow-up with Dr. Barrera to continue these medications. You were treated for likely aspiration pneumonia with an antibiotic which likely contributed to your diarrhea. You may hold off on stool softener called Colace (docusate sodium) and MiraLax (polyethylene glycol) for the next 1-2 days and then resume to keep your bowel movements regular. Discharge orders & Medications Prescriptions: New docusate sodium 50 mg/5 mL Liquid 100 mg PO BID Qty: 30 RF: 0 polyethylene glycol 3350 17 gram Powder In Packet 17 gram PO DAILY Qty: 30 RF: 0 bisacodyl 10 mg Suppository 10 mg [place] DAILY PRN (Reason: Constipation) Qty: 10 RF: 0 Bacid 1 billion cell- 250 mg Tablet 1 ea PO BIDWM Qty: 30 RF: 0 Discontinued oxycodone 5 mg/5 mL Solution 5 mg feeding tube Q4H PRN (Reason: Pain, Moderate) RF: 0 No Action acetaminophen 160 mg/5 mL liquid 640 mg PO Q6H PRN (Reason: fever or pain) Qty: 120 RF: 0 melatonin 3 mg Tablet 6 mg PO BEDTIME 30 Days Qty: 60 RF: 0 aspirin 81 mg Tablet,Chewable 81 mg PO DAILY 30 Days Qty: 30 RF: 0 atorvastatin [Lipitor] 80 mg tablet 80 mg PO BEDTIME 30 Days Qty: 30 RF: 0 ondansetron 4 mg tablet,disintegrating 4 mg PO Q6H PRN (Reason: nausea and vomiting) Qty: 14 RF: 0 Follow up/Referrals: Bonifacio Barrera MD [Physician] - 1 Week Diet/Activity/Treatments Diet: Diet as Tolerated and Tube Feeding Activity: Activity as tolerated Visit Report/Discharge Packet Instructions: How to Care for Your PEG Tube, Percutaneous Endoscopic Gastrostomy, DI for Percutaneous Endoscopic Gastrostomy Discharges patient from system. Discharge Date/Time: 06/15/19 16:15 Quality VTE Deep Vein Thrombosis/Pulmonary Embolism Present on Admission: No
--- NOTE | 2019-06-15 17:28 | PM.EVENT ---
Event Note Date Patient Seen: 06/14/19 Time Patient Seen: 08:29 Event Note: I was asked to see this patient in regards to a dysfunctional PEG tube placed several months ago at an outside facility. She is 73 years old and has esophageal carcinoma with severe dysphagia. CT from this admission shows that the distal aspect of the tube is within the subcutaneous tissues and not within the stomach lumen. Desufflated the balloon removed the PEG tube tested the function of the balloon and then reinserted the PEG back into the stomach. The balloon was insufflated. Then did a flush test with water through the PEG which flushed easily and withdrew. The patient had no further pain.
== END 2019-06-15 16:15 | disposition home or self-care (01) | DRG 391 ==
LOC: ED 20:15 → AC 20:19
PROVIDERS: Family Medicine; Internal Medicine; Admitting Provider Nurse Practitioner Family; Emergency Provider Emergency Medicine; Visit Provider Nurse Practitioner Family
DX: A09 Infectious gastroenteritis and colitis, unspecified (principal); E43 Unspecified severe protein-calorie malnutrition; J18.9 Pneumonia, unspecified organism; C15.9 Malignant neoplasm of esophagus, unspecified; E87.1 Hypo-osmolality and hyponatremia; J90 Pleural effusion, not elsewhere classified; K94.23 Gastrostomy malfunction; Z68.21 Body mass index [BMI] 21.0-21.9, adult; E86.0 Dehydration; E87.6 Hypokalemia; K59.03 Drug induced constipation; R13.10 Dysphagia, unspecified
CPT/HCPCS: 36415; 71046; 71260; 74176; 74177; 80048; 80053; 80076; 80202; 81003; 81015; 82962; 83605; 83690; 83735; 84100; 84145; 85025; 87040; 87045; 87086; 87493; 87633; 87899; 93005; 96365; 96375; 96376; 99284; J1650; J2270; J2543; J3370

== ENCOUNTER 2019-06-21 08:09 | Emergency (ER) | payer MEDICARE, OTHER, SELFPAY ==
[2019-06-21 08:08] VITALS: BP 161/85; PULSE 98; RESP 20; TEMP 37.3; O2SAT 93; BMI 21.6
--- NOTE | 2019-06-21 08:36 | ED_ITS ---
HPI - Weakness General Chief complaint: Weakness Stated complaint: facial numbness Time Seen by Provider: 06/21/19 08:10 Source: EMS Mode of arrival: EMS Limitations: no limitations History of Present Illness HPI Narrative: Patient comes emergency department complaining that she noticed left facial numbness this morning when she woke up. Patient states she also felt nauseated, though she has been feeling nauseated on and off for the last several days since she started methadone for her chronic pain. Patient states that she did not notice any weakness anywhere. No difficulty speaking or swallowing. No visual changes. No incoordination. Patient states she began to feel panicked because of the numbness on her face, and then her finger started to tingle. Patient denies chest pain that is new or shortness of breath. She has chronic chest pain related to her prior esophageal cancer. She also does tube feedings because she can no longer swallow well. Patient denies any fevers or chills. No cough. No other complaints at this time. Related Data Previous Rx's Medication Instructions Recorded Eric.therm 1 ea PO BIDWM #30 tab 06/15/19 [Bacid] bisacodyl 10 mg [place] DAILY PRN #10 ea 06/15/19 docusate sodium 100 mg PO BID #30 ml 06/15/19 methadone [Methadone Intensol] 4 mg PO BID #30 ml 06/15/19 oxycodone 5 mg FEEDING TUBE Q2-4H PRN #15 ml 06/15/19 polyethylene glycol 3350 17 gram PO DAILY #30 each 06/15/19 ondansetron 4 mg PO Q6H PRN #14 tab 06/21/19 Allergies Allergy/AdvReac Type Severity Reaction Status Date / Time codeine [CODEINE] Allergy Mild ITCHING Verified 06/21/19 08:08 No Known Allergies Allergy Unknown Verified 06/21/19 08:08 meperidine [MEPERIDINE] AdvReac Intermediate Vomiting Verified 06/21/19 08:08 Review of Systems Constitutional Constitutional: Denies chills, Denies fatigue, Denies fever(s), Denies frequent falls, Denies lethargy and Denies weakness Eyes Eyes: Denies change in vision, Denies eye discharge, Denies irritation and Denies loss of vision ENT Ears, Nose, Mouth, and Throat: Denies change in voice, Denies dizziness, Denies neck pain, Denies sore throat and Denies throat swelling Cardiovascular Cardiovascular: Denies chest pain, Denies irregular heart rhythm, Denies lightheadedness, Denies palpitations, Denies dyspnea, Denies dyspnea on exertion and Denies orthopnea Respiratory Respiratory: Denies cough, Denies dyspnea, Denies dyspnea on exertion and Denies wheezing Gastrointestinal Gastrointestinal: Denies abdominal pain, Denies change in bowel habits, Denies diarrhea, Denies nausea and Denies vomiting Genitourinary Genitourinary: Denies hematuria, Denies flank pain, Denies urinary incontinence and Denies urinary urgency Musculoskeletal Musculoskeletal: Denies back pain, Denies muscle weakness, Denies neck pain, Reports numbness and Denies tingling Integumentary/Breasts Skin/Breast: Denies pruritus, Denies erythema, Denies rash and Denies wounds Neurologic Neurologic: Denies behavioral changes, Denies confusion, Denies dizziness, Denies frequent falls, Denies loss of vision, Reports numbness, Denies tingling and Denies weakness Psychiatric Psychiatric: Reports anxiety, Denies behavioral changes, Denies confusion, Denies depression, Denies homicidal ideation and Denies suicidal ideation Endocrine Endocrine: Denies fatigue, Denies flushing and Denies palpitations Hematologic/Lymphatic Hematologic/Lymphatic: Denies easy bruising Allergic/Immunologic Allergic/Immunologic: Denies urticaria, Denies throat swelling and Denies wheezing Patient History Medical History Esophageal cancer (Chronic) Esophageal spasm (Acute) Surgical History Encounter for feeding tube placement (Acute) Social History household members: none Smoking Status: Former smoker alcohol intake: never substance use type: does not use Smoking Status: Former smoker alcohol intake frequency: 0-2 drinks per day Substance Use Type: does not use Exam Initial Vital Signs Initial Vital Signs: Vital Signs Temperature 99.1 F 06/21/19 08:08 Pulse Rate 98 H 06/21/19 08:08 Respiratory Rate 20 06/21/19 08:08 Blood Pressure 161/85 H 06/21/19 08:08 Pulse Oximetry 93 06/21/19 08:08 Const General: cooperative and well developed Nutritional Appearance: well nourished Orientation: alert, awake, oriented x3 and not confused [facility] Head: normocephalic and atraumatic Ears: external ears normal and TM's normal bilaterally Nose: external nose normal and No nasal discharge Face and sinus: sinuses nontender, face symmetric, no sinus tenderness and No dry mucous membranes Mouth: oral mucosae normal and moist mucous membranes Teeth and gingiva: dentition normal Throat: tonsils normal and uvula midline Eyes General: appearance normal, both eyes and all related structures Eyelids: eyelids normal Conjunctivae: conjunctivae normal Sclera: sclerae normal Pupils: PERRL EOM: EOM intact bilaterally Neck Neck: normal visual inspection, trachea midline, No lymphadenopathy, No midline deformity and No JVD Lymphatic: No lymphedema Chest Chest: normal inspection of the chest Resp Effort & Inspection: normal respiratory effort, able to speak in complete sentences, no respiratory distress and no use of accessory muscles Auscultation: clear to auscultation bilaterally, no rales, no rhonchi and no wheezes Cardio Rate: regular rate Rhythm: regular rhythm Heart Sounds: no click, no gallops, no murmurs and no rubs Pulses: normal peripheral pulses GI Inspection: non-distended Palpation: soft, no hepatosplenomegaly, No guarding, No pulsatile mass and No tender Auscultation: normal bowel sounds Back/Spine/Pelvis Back: No CVA tenderness Cervical Spine: cervical ROM normal and No pain with cervical ROM Thoracic/Lumbar Spine: thoracic and lumbar spine normal to inspection Skin General: no rashes or lesions noted, No jaundice and No petechiae Neuro General: alert, oriented x3, gait normal and no focal motor deficits Cranial Nerves: CN's II-XI intact bilaterally Cognition: normal cognition Speech: speech normal Motor: muscle tone normal throughout Sensory Exam: no sensory deficits noted Other: Objectively, the patient's sensation is equal bilaterally, both to sharp and soft touch, on her face. No facial droop is noted. No drooling. No slurred speech. Extrem General: full ROM, no clubbing, cyanosis or edema, no pedal edema and no calf tenderness Psych Appearance: well kempt Mental Status: mental status grossly normal Attitude: cooperative Thought Content: normal and suicidality Judgment: judgment good Course Course Course Narrative: The patient had subjective complaints, but these were not verified by objective examination, which was normal. The patient was worked up with labs, which were unremarkable. At this point in time, I did not feel the patient's presentation indicated the need for a CT scan. I discussed this with the patient and her son, who is present. The patient has had cessation of an extended course of oxycodone, with on boarding of the even stronger methadone. On top of this, she took the methadone for a few days and then stopped it yesterday. As such, I have discussed with the patient that her symptoms may be related to the recent medication changes. I have discussed with the patient that she needs to talk to the doctor who prescribes her medications to see if she should be on the methadone or not. She has chronic esophageal pain which is secondary to her radiation treatment for esophageal cancer. I have advised her that she may try taking half or even a smaller portion of her methadone tablet and see if this gets control of her pain without causing significant side effects. Alternatively, the patient may go back on her oxycodone and take a very small portion of her methadone with this and see if this gives her better symptomatic control without the side effects. Alternative to this, she may abstain from all of her medications for pain and follow up with her primary care physician. Patient and son expressed understanding. Orders Ordered: ED Orders 06/21/19 08:33 Basic Metabolic Panel Stat 06/21/19 08:34 Basic Metabolic Panel Stat Vital Signs Vital signs: Vital Signs - 8 hr 06/21/19 08:08 Temperature 99.1 F Pulse Rate 98 H Respiratory Rate 20 Blood Pressure 161/85 H Pulse Oximetry 93 MDM - Weakness Medical Records Attestation: I reviewed the patient's medical records. Lab Data Attestation: I reviewed the patient's lab results. Result diagrams: 06/21/19 08:25 Labs: Lab Results 06/21/19 Range/Units 08:25 Sodium 136 L (137-145) mmol/L Potassium 3.7 (3.4-5.1) mmol/L Chloride 99 (98-107) mmol/L Carbon Dioxide 31 (22-32) mmol/L BUN 10 (7-17) mg/dL Creatinine 0.60 (0.52-1.04) mg/dL Estimated GFR > 60.0 (>60) mL/min BUN/Creatinine Ratio 16.7 (6-22) Glucose 108 (80-110) mg/dL Calcium 8.9 (8.4-10.2) mg/dL Urine Dip Bedside Urine Glucose Negative Bedside Urine Bilirubin - Negative Bedside Urine Ketone - Negative Urine Specific [place] 1.010 Bedside Urine Occult Blood - Negative Bedside Urine pH 8 Bedside Urine Protein - Negative Bedside Urine Urobilinogen - Negative Bedside Urine Nitrite - Negative Bedside Urine Leukocytes - Negative Esterase Discharge Plan Departure Patient Disposition: Home Clinical Impression: Paresthesia, Anxiety Adverse drug effect Qualifiers: Encounter type: initial encounter Qualified Code(s): T50.905A - Adverse effect of unspecified drugs, medicaments and biological substances, initial encounter Discharge Date/Time: 06/21/19 10:32 Instructions: DI for Numbness/tingling Activity Restrictions/Additional Instructions: Your labs look good. The symptoms you are reporting, as well as your physical exam, are not consistent with a stroke. You are on some very strong pain medications and additionally, have skipped couple of feedings recently. In addition to all this, you have also missed dose of your methadone. All of these things can affect the weight that your nerves function. Both the medication and the abrupt stopping of narcotics when you have been on them for a while can cause significant symptoms. If the methadone makes you feel nauseated and ?off?, you may take a smaller dose and see if this helps control the pain without causing some any side effects. For example, you may take half or 3/4 of the prescribed dose instead of the full dose. Alternatively, you may also take your former oxycodone dose with, for example, just 1/4 of the dose of your methadone and see if this brings you relief. If none of these options seem workable to you, then you will need to talk to your outpatient doctor who prescribes your pain medications for you. Please call 1st thing tomorrow morning to make an appointment to be seen. Prescriptions: New ondansetron 4 mg tablet,disintegrating 4 mg PO Q6H PRN (Reason: nausea and vomiting) Qty: 14 RF: 0 No Action docusate sodium 50 mg/5 mL Liquid 100 mg PO BID Qty: 30 RF: 0 methadone [Methadone Intensol] 10 mg/mL Concentrate 4 mg PO BID Qty: 30 RF: 0 polyethylene glycol 3350 17 gram Powder In Packet 17 gram PO DAILY Qty: 30 RF: 0 bisacodyl 10 mg Suppository 10 mg [place] DAILY PRN (Reason: Constipation) Qty: 10 RF: 0 Bacid 1 billion cell- 250 mg Tablet 1 ea PO BIDWM Qty: 30 RF: 0 oxycodone 5 mg/5 mL Solution 5 mg feeding tube Q2-4H PRN (Reason: Pain, Moderate) Qty: 15 RF: 0
[2019-06-21 08:50] LABS: BUN Creatinine Ratio 16.7 (6-22); Blood Urea Nitrogen 10 mg/dL (7-17); Calcium 8.9 mg/dL (8.4-10.2); Carbon Dioxide 31 mmol/L (22-32); Chloride 99 mmol/L (98-107); Estimated Glomerular Filt Rate > 60.0 mL/min (>60); Glucose 108 mg/dL (80-110); HEMOLYSIS < 15 (0-50); Potassium 3.7 mmol/L (3.4-5.1); Sodium 136 mmol/L (137-145)
[2019-06-21 10:27] VITALS: BP 140/67; PULSE 87; RESP 18; O2SAT 92
== END 2019-06-21 10:32 | disposition home or self-care (01) ==
PROVIDERS: Emergency Provider Emergency Medicine
DX: R20.2 Paresthesia of skin (principal); F41.9 Anxiety disorder, unspecified; T50.905A Adverse effect of unspecified drugs, medicaments and biological substances, initial encounter
CPT/HCPCS: 36415; 80048; 81003; 99283

== ENCOUNTER 2019-06-22 13:48 | Inpatient (IN) | payer MEDICARE, OTHER, SELFPAY ==
[2019-06-22] VITALS (10 sets, daily range): BP systolic 140–168; BP diastolic 70–99; PULSE 74–99; RESP 11–22; TEMP 36.1–36.6; O2SAT 87–100; BMI 20.5
--- NOTE | 2019-06-22 14:18 | ED_ITS ---
HPI - Weakness General Chief complaint: Weakness Stated complaint: left side numbness Time Seen by Provider: 06/22/19 13:59 Source: patient Mode of arrival: Wheelchair Limitations: no limitations History of Present Illness HPI Narrative: Patient is a 73-year-old female with history of esophageal cancer presenting with a left arm and leg weakness. She was actually seen evaluated yesterday for left-sided facial numbness. She did not have any weakness yesterday. She was discharged home this morning she woke up unable to use her left arm and leg. She has no speech difficulty or facial drooping. None she is nauseous no vomiting. She has a PEG tube is in place. MD Complaint: focal weakness Location: LUE and LLE Related Data Previous Rx's Medication Instructions Recorded Erci.therm 1 ea PO BIDWM #30 tab 06/15/19 [Bacid] bisacodyl 10 mg [place] DAILY PRN #10 ea 06/15/19 docusate sodium 100 mg PO BID #30 ml 06/15/19 methadone [Methadone Intensol] 4 mg PO BID #30 ml 06/15/19 oxycodone 5 mg FEEDING TUBE Q2-4H PRN #15 ml 06/15/19 polyethylene glycol 3350 17 gram PO DAILY #30 each 06/15/19 ondansetron 4 mg PO Q6H PRN #14 tab 06/21/19 Allergies Allergy/AdvReac Type Severity Reaction Status Date / Time codeine [CODEINE] Allergy Mild ITCHING Verified 06/21/19 08:08 No Known Allergies Allergy Unknown Verified 06/21/19 08:08 meperidine [MEPERIDINE] AdvReac Intermediate Vomiting Verified 06/21/19 08:08 Review of Systems Review of Systems Narrative: GENERAL: Denies chills, fatigue, malaise, fever, sweats, travel HEENT: Denies sinus pain, ear pain, sore throat, difficulty swallowing, neck pain RESPIRATORY: Denies dyspnea, cough, wheezing, hemoptysis, sputum. CARDIOVASCULAR: Denies chest pain, palpitations, orthopnea, edema GASTROINTESTINAL: Denies nausea, vomiting, abdominal pain, diarrhea, constipation, melena. : Denies dysuria, frequency, incontinence, hematuria, urinary retention, flank pain. MUSCULOSKELETAL: Denies weakness, joint pain, or bony pain SKIN: No rash, no erythema, no pruritus NEUROLOGIC: See HPI PSYCHIATRIC: No concerning psychosocial issues. 12 point review of systems is negative except for those stated above and HPI Patient History Medical History Esophageal cancer (Chronic) Esophageal spasm (Acute) Surgical History Encounter for feeding tube placement (Acute) Family History Other Adopted person Social History household members: none Smoking Status: Former smoker alcohol intake: never substance use type: does not use Smoking Status: Former smoker alcohol intake frequency: 0-2 drinks per day Substance Use Type: does not use Exam Initial Vital Signs Initial Vital Signs: Vital Signs Temperature 97.6 F 06/22/19 13:53 Pulse Rate 99 H 06/22/19 13:53 Respiratory Rate 22 06/22/19 13:53 Blood Pressure 153/91 H 06/22/19 13:53 Pulse Oximetry 94 06/22/19 13:53 GENERAL: Chronically ill HEENT: Head atraumatic,EOMI, pupils reactive, face symmetric CARDIOVASCULAR: Regular rate and rhythm without murmurs, rubs or gallops. RESPIRATORY: Breath sounds equal bilaterally, no wheezes rales or rhonchi. ABDOMEN: Soft, nontender. Normoactive bowel sounds all 4 quadrants. No guarding or rebound. Peg tube in place EXTREMITIES: Normal range of motion, no clubbing or edema. Neurovascularly intact NEUROLOGICAL: Alert and oriented x4. Left arm weakness wrist to gurney left leg weakness stress to gurney decreased sensation on left face left arm and left lower leg. No visual disturbance has no facial drooping speech is clear without aphasia or dysarthria SKIN: Warm, dry, no laceration, no petechiae, no rashes or lesions. Scores NIH Stroke Scale Level of Conciousness: Alert, keenly responsive Ask month/age: Answers both questions correctly. Open/close eyes, close hand: Performs both tasks correctly Best gaze horizontal: Normal Visual ray: No visual loss Facial palsy: Normal symetrical movement Left arm drift: Some effort against gravity, cannot maintain, drifts down to bed Right arm drift: No drift for full 10 sec Left leg drift: Some effort against gravity, cannot maintain, drifts down to bed Right leg drift: No drift for full 10 sec Limb ataxia: Absent (can't test left side due to weakness) Sensory on face/arms/legs: Mild to moderate sensory loss, can tell touch Best language: No aphasia, normal Dysarthria: Normal Extinction or inattention: No abnormality Total NIH Stroke scale score: 5 Course Orders Ordered: ED Orders 06/22/19 13:58 EKG-12 Lead Routine EKG-12 Lead Stat 06/22/19 14:00 Complete Blood Count AUTO DIFF Stat 06/22/19 14:26 CT head/brain wo con Stat 06/22/19 14:32 Comprehensive Metabolic Panel Stat Partial Thromboplastin Time Stat Prothrombin Time INR Stat 06/22/19 16:02 XR chest 1V Stat Acetaminophen (Tylenol) 650 mg PO Q6HR PRN PRN Reason: Fever/Mild Pain (1-3) Aspirin (Aspirin Chew) 81 mg PO DAILY JONY Atorvastatin Calcium (Lipitor) 80 mg PO BEDTIME JONY Enoxaparin Sodium (Lovenox) 40 mg SUBCUT DAILY JONY Sodium Chloride (Normal Saline 0.9%) 1,000 mls @ 150 mls/hr IV CONT JONY Last Infusion: 06/22/19 17:02 Dose: 0 mls/hr Documented by: Admin: 06/22/19 14:21 Dose: 150 mls/hr Documented by: ANICETO Magnesium Hydroxide (Milk Of Magnesia) 30 ml PO DAILY PRN PRN Reason: Constipation Ondansetron HCl (Zofran) 4 mg IV Q8HR PRN PRN Reason: Nausea And Vomiting Discontinued Medications Aspirin (Aspirin Chew) 324 mg TUBE NOW ONE Stop: 06/22/19 15:06 Last Admin: 06/22/19 15:38 Dose: 324 mg Documented by: ANICETO Metoclopramide HCl (Reglan) 10 mg IV NOW ONE Stop: 06/22/19 15:27 Last Admin: 06/22/19 15:38 Dose: 10 mg Documented by: ANICETO Ondansetron HCl (Zofran) 4 mg IV NOW ONE Stop: 06/22/19 14:16 Last Admin: 06/22/19 14:21 Dose: 4 mg Documented by: ANICETO Ondansetron HCl (Zofran) 4 mg IV NOW ONE Stop: 06/22/19 14:51 Last Admin: 06/22/19 14:50 Dose: Not Given Documented by: ANICETO Vital Signs Vital signs: Vital Signs - 8 hr 06/22/19 13:53 06/22/19 14:00 06/22/19 14:15 Temperature 97.6 F Pulse Rate 99 H 97 H 83 Respiratory Rate 22 11 L 14 Blood Pressure 153/91 H Blood Pressure [Right Arm] 159/86 H 154/70 H Pulse Oximetry 94 92 92 06/22/19 15:00 06/22/19 15:15 06/22/19 15:45 Temperature Pulse Rate 86 85 90 Respiratory Rate 13 15 18 Blood Pressure Blood Pressure [Right Arm] 160/76 H 154/99 H 168/76 H Pulse Oximetry 91 92 87 L MDM - Weakness Lab Data Attestation: I reviewed the patient's lab results. Result diagrams: 06/22/19 14:00 06/22/19 14:32 Labs: Lab Results 06/22/19 06/22/19 06/22/19 Range/Units 14:00 14:32 14:32 WBC 15.2 H (4.5-11.0) X10^3/uL RBC 4.52 (4.0-5.2) X10^6/uL Hgb 12.4 (12.0-16.0) g/dL Hct 37.2 (36-46) % MCV 82.2 (80-100) fL MCH 27.4 (26-34) PG MCHC 33.3 (30-36) % RDW 14.7 (11.6-14.8) % Plt Count 434 H (150-400) X10^3/uL Neut % (Auto) 79.6 H (50-75) % Lymph % (Auto) 13.4 L (25-40) % [place] % (Auto) 5.5 (3-14) % Eos % (Auto) 0.5 L (2-4) % Baso % (Auto) 1.0 (0-2) % Neut # (Auto) 22536 H (1345-7831) /uL Lymph # (Auto) 2000 (4485-6677) /uL [place] # (Auto) 800 (0-900) /uL Eos # (Auto) 100 (0-450) /uL Baso # (Auto) 200 H (0-100) /uL PT 12.4 (10.1-12.7) SECONDS INR 1.1 (0.9-1.3) APTT 31 (26.4-36.2) SECONDS Sodium 132 L (137-145) mmol/L Potassium 3.9 (3.4-5.1) mmol/L Chloride 96 L (98-107) mmol/L Carbon Dioxide 30 (22-32) mmol/L BUN 12 (7-17) mg/dL Creatinine 0.50 L (0.52-1.04) mg/dL Estimated GFR > 60.0 (>60) mL/min BUN/Creatinine Ratio 24.0 H (6-22) Glucose 160 H (80-110) mg/dL Calcium 8.5 (8.4-10.2) mg/dL Total Bilirubin 0.4 (0.2-1.3) mg/dL AST 22 (14-36) IU/L ALT 17 (<35) IU/L Alkaline Phosphatase 68 (38-126) U/L Total Protein 6.6 (6.3-8.2) g/dL Albumin 3.2 L (3.5-5.0) g/dL Globulin 3.4 (1.7-4.1) g/dL Albumin/Globulin Ratio 0.9 L (1.0-2.8) Urine Dip Bedside Urine Glucose 100 mg/dl Bedside Urine Bilirubin - Negative Bedside Urine Ketone - Negative Urine Specific [place] 1.015 Bedside Urine Occult Blood - Negative Bedside Urine pH 7.0 Bedside Urine Protein - Negative Bedside Urine Urobilinogen - Negative Bedside Urine Nitrite - Negative Bedside Urine Leukocytes - Negative Esterase Imaging Data CT scan - head: Radiologist's impression: PROCEDURE: CT HEAD/BRAIN WO CON INDICATIONS: Left sided weakness / numbness. h/o esophageal CA TECHNIQUE: Noncontrast 4.5 mm thick angled axial sections acquired from the foramen magnum to the vertex, with coronal and sagittal reformats. For radiation dose reduction, the following was used: automated exposure control, adjustment of mA and/or kV according to patient size. COMPARISON: [facility], CT, HEAD WITHOUT CONTRAST, 12/08/2014, 15:50. FINDINGS: Image quality: Excellent. CSF spaces: Basal cisterns are patent. No extra-axial fluid collections. The ventricles are symmetric in size and shape. Brain: No intracranial bleeds or masses. There is cerebral volume loss for age, with resultant ventricular and sulcal prominence. There are periventricular and deep white matter chronic small vessel ischemic changes. There is intracranial internal carotid artery atherosclerosis. Skull and face: Calvarium and visualized facial bones appear intact, without suspicious lesions. Sinuses: Visualized sinuses and mastoids are clear. IMPRESSION: No acute intracranial process. If there is high clinical suspicion for intracranial metastases, consider fur ther evaluation with dedicated MRI brain with and without contrast for improved study sensitivity. Dictated by: Tyrese Bull M.D. on 06/22/2019 at 14:49 Approved by: Tyrese Bull M.D. on 06/22/2019 at 14:52 ECG Data Attestation: I personally reviewed and interpreted this ECG as follows: Prior ECG tracings: available for review Interpretation: All sinus rhythm rate 90 p.r. interval 153 QRS [address] elevations depressions or T-wave inversions similar to previous EKG MDM Narrative Medical decision making narrative: The patient has signs and symptoms consistent with stroke. Head CT does not show any metastasis or abnormality. She is out of the window for tPA and is not a tPA candidate. She is given aspirin and admitted to Dr. Call as inpatient. Discharge Plan Departure Patient Disposition: Admitted As Inpatient Clinical Impression: CVA (cerebral vascular accident) Qualifiers: CVA mechanism: unspecified Qualified Code(s): I63.9 - Cerebral infarction, unspecified Discharge Date/Time: 06/22/19 17:10 Admit Date/Time: 06/22/19 16:13 Admit Provider: Eulalio Call
[2019-06-22] MEDS: ONDANSETRON 4 MG/2 ML INJ IV (14:21)
[2019-06-22] MEDS: SODIUM CHLORIDE 0.9% 1,000 ML 150 ML IV (14:21)
[2019-06-22 14:22] LABS: Add Manual Diff / Slide Review NO; Basophils Absolute Auto 200 /uL (0-100); Eosinophils Absolute Auto 100 /uL (0-450); Eosinophils Percent Auto 0.5 % (2-4); Hematocrit 37.2 % (36-46); Hemoglobin 12.4 g/dL (12.0-16.0); Lymphocytes Absolute Auto 2000 /uL (1100-4500); Lymphocytes Percent Auto 13.4 % (25-40); Mean Corpuscular HGB Conc 33.3 % (30-36); Mean Corpuscular Hemoglobin 27.4 PG (26-34); Mean Corpuscular Volume 82.2 fL (80-100); Monocytes Absolute Auto 800 /uL (0-900); Monocytes Percent Auto 5.5 % (3-14); Neutrophils Absolute Auto 12100 /uL (1500-7000); Neutrophils Percent Auto 79.6 % (50-75); Platelet Count 434 X10^3/uL (150-400); Red Blood Cell Count 4.52 X10^6/uL (4.0-5.2); Red Cell Distribution Width 14.7 % (11.6-14.8); White Blood Cell Count 15.2 X10^3/uL (4.5-11.0)
--- NOTE | 2019-06-22 14:26 | DI.CT.S_ITS ---
PROCEDURE: CT HEAD/BRAIN WO CON INDICATIONS: Left sided weakness / numbness. h/o esophageal CA TECHNIQUE: Noncontrast 4.5 mm thick angled axial sections acquired from the foramen magnum to the vertex, with coronal and sagittal reformats. For radiation dose reduction, the following was used: automated exposure control, adjustment of mA and/or kV according to patient size. COMPARISON: [facility], CT, HEAD WITHOUT CONTRAST, 12/08/2014, 15:50. FINDINGS: Image quality: Excellent. CSF spaces: Basal cisterns are patent. No extra-axial fluid collections. The ventricles are symmetric in size and shape. Brain: No intracranial bleeds or masses. There is cerebral volume loss for age, with resultant ventricular and sulcal prominence. There are periventricular and deep white matter chronic small vessel ischemic changes. There is intracranial internal carotid artery atherosclerosis. Skull and face: Calvarium and visualized facial bones appear intact, without suspicious lesions. Sinuses: Visualized sinuses and mastoids are clear. IMPRESSION: No acute intracranial process. If there is high clinical suspicion for intracranial metastases, consider further evaluation with dedicated MRI brain with and without contrast for improved study sensitivity. Dictated by: Tyrese Bull M.D. on 06/22/2019 at 14:49 Approved by: Tyrese Bull M.D. on 06/22/2019 at 14:52
--- NOTE | 2019-06-22 14:31 | PC.NURSE ---
Pt states she came to ED yesterday w/ generalized weakness, nausea and left sided numbness. Was seen and d/c. Today woke w/ profound left sided weakness. Attempts but unable to lift left leg and left arm above gravity. Hand grasp 1/5 on left 5/5 on right. No palsy noted. Zofran has not been helpful for nausea at home. Pt has PEG tub for nutrition. Takes nothing by mouth.
[2019-06-22 14:47] LABS: INR 1.1 (0.9-1.3); Prothrombin Time 12.4 SECONDS (10.1-12.7)
[2019-06-22 14:49] LABS: PTT Partial Thromboplastin Tim 31 SECONDS (26.4-36.2)
[2019-06-22] MEDS: ONDANSETRON 4 MG/2 ML INJ (14:51)
[2019-06-22 14:52] LABS: Alanine Aminotransferase 17 IU/L (<35); Albumin 3.2 g/dL (3.5-5.0); Albumin Globulin Ratio 0.9 (1.0-2.8); Alkaline Phosphatase 68 U/L (38-126); Aspartate Aminotransferase 22 IU/L (14-36); Bilirubin Total 0.4 mg/dL (0.2-1.3); Blood Urea Nitrogen 12 mg/dL (7-17); Calcium 8.5 mg/dL (8.4-10.2); Carbon Dioxide 30 mmol/L (22-32); Chloride 96 mmol/L (98-107); Estimated Glomerular Filt Rate > 60.0 mL/min (>60); Globulin 3.4 g/dL (1.7-4.1); Glucose 160 mg/dL (80-110); HEMOLYSIS 20 (0-50); Potassium 3.9 mmol/L (3.4-5.1); Sodium 132 mmol/L (137-145); Total Protein 6.6 g/dL (6.3-8.2)
[2019-06-22] MEDS: ASPIRIN 81 MG CHEW TAB 324 MG TUBE (15:38)
[2019-06-22] MEDS: METOCLOPRAMIDE 10 MG/2 ML INJ IV (15:38)
--- NOTE | 2019-06-22 16:02 | DI.RAD.S_ITS ---
PROCEDURE: XR CHEST 1V INDICATIONS: recent pneumonia and now stroke TECHNIQUE: One view of the chest was acquired. COMPARISON: [facility], CR, XR CHEST 2V, 06/12/2019, 12:15. FINDINGS: Surgical changes and devices: None. Lungs and pleura: Increased left basilar/retrocardiac opacity. Mild increased vascularity. Mediastinum: Mediastinal contours appear normal. Heart size is normal. Bones and chest wall: No suspicious bony lesions. Overlying soft tissues appear unremarkable. IMPRESSION: Inreased left basilar/retrocardiac opacity. There is mild left effusion. Superimposed pneumonia and/or pneumonia appears present. Dictated by: Drea García M.D. on 06/22/2019 at 16:18 Approved by: Drea García M.D. on 06/22/2019 at 16:24
--- NOTE | 2019-06-22 17:55 | P.HP_ITS ---
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 She initially presented yesterday morning with complaints of left-sided facial numbness and was discharged home. She woke up this morning unable to move her left hand and left leg, and she had a notable left-sided facial droop as well. She also complains of decreased sensation on her left side. She denies any recent chest pains or palpitations. She has had no fevers or chills recently. She denies cough or sputum production. She further denies shortness of breath, lower extremity edema, abdominal pain, vomiting. She did have an episode of headache and blurry vision a few days ago that resolved, and she has not had the symptoms since. She is also no longer taking methadone her oxycodone, as they did not seem to help her and she just felt off taking medications. In the ED her vital signs were notable for mild hypertension, and she did have an O2 of 87% on room air. Her initial NIH stroke scale was 5 according to ED documentation. She had a CT head which was negative for intracranial hemorrhage and did not show any infarcts. Her chest x-ray is read as a left retrocardiac infiltrate, left-sided pleural effusion. EKG shows normal sinus rhythm. Labs are notable for a leukocytosis of 15.2 and platelet count of 434, sodium of 132 (stable from prior labs), glucose of 160. She was admitted to medicine for an acute CVA. Patient History Medical History Esophageal cancer (Chronic) Esophageal spasm (Acute) Surgical History Encounter for feeding tube placement (Acute) Family & Social History Family History Other Adopted person Social History: household members none Safety & Behavioral: Feels Safe in Current Yes Environment Tobacco & Substance use: Smoking Status Former smoker alcohol intake never alcohol intake frequency 0-2 drinks per day Substance Use Type does not use Meds Home Medications and Allergies Home Medications Medication Instructions Recorded Confirmed Type Lucy-Ashlyng-B.bif-S.therm 1 ea PO BIDWM #30 tab 06/15/19 06/22/19 Rx [Bacid] bisacodyl 10 mg DE DAILY PRN #10 ea 06/15/19 06/22/19 Rx docusate sodium 100 mg PO BID #30 ml 06/15/19 06/22/19 Rx methadone [Methadone Intensol] 4 mg PO BID #30 ml 06/15/19 06/22/19 Rx oxycodone 5 mg FEEDING TUBE Q2-4H PRN #15 ml 06/15/19 06/22/19 Rx polyethylene glycol 3350 17 gram PO DAILY #30 each 06/15/19 06/22/19 Rx ondansetron 4 mg PO Q6H PRN #14 tab 06/21/19 06/22/19 Rx Allergies Allergy/AdvReac Type Severity Reaction Status Date / Time codeine [CODEINE] Allergy Mild ITCHING Verified 06/21/19 08:08 No Known Allergies Allergy Unknown Verified 06/21/19 08:08 meperidine [MEPERIDINE] AdvReac Intermediate Vomiting Verified 06/21/19 08:08 Review of Systems Review of Systems Narrative: All other systems reviewed with the patient and are negative unless otherwise stated. Exam Vital Signs (past 8 hours): - 06/22/19 13:53 06/22/19 14:00 06/22/19 14:15 Temperature 97.6 F Pulse Rate 99 H 97 H 83 Respiratory Rate 22 11 L 14 Blood Pressure 153/91 H Blood Pressure [Right Arm] 159/86 H 154/70 H Pulse Oximetry 94 92 92 06/22/19 15:00 06/22/19 15:15 06/22/19 15:45 Temperature Pulse Rate 86 85 90 Respiratory Rate 13 15 18 Blood Pressure Blood Pressure [Right Arm] 160/76 H 154/99 H 168/76 H Pulse Oximetry 91 92 87 L 06/22/19 16:41 06/22/19 17:20 Temperature 96.9 F L Pulse Rate 74 81 Respiratory Rate 18 18 Blood Pressure 140/90 Blood Pressure [Right Arm] 164/81 H Pulse Oximetry 100 Oxygen Delivery Method Room Air Oxygen Flow Rate 2 Narrative Exam Narrative: GENERAL APPEARANCE: Well developed, well nourished, appears mildly anxious. SKIN: Inspection of the skin reveals no rashes, ulcerations or petechiae. HEENT: The sclerae were anicteric and conjunctivae were pink and moist. Extraocular movements were intact and pupils were equal, round with normal accommodation. External inspection of the ears and nose showed no scars, lesions, or masses. Lips, teeth, and gums showed normal mucosa. The oral mucosa, hard and soft palate, tongue and posterior pharynx were unremarkable. NECK: Supple and symmetric. There was no thyroid enlargement, and no tenderness, or masses were felt. CHEST: Normal AP diameter and normal contour without any kyphoscoliosis. LUNGS: Auscultation of the lungs revealed no wheezes, rhonchi, or rales. CARDIOVASCULAR: There was a regular rate and rhythm without any murmurs, gallops, rubs. Peripheral pulses were 2+ and symmetric. ABDOMEN: Soft and nontender with normal bowel sounds. No ascites was noted. Peg tube without erythema, induration. MUSCULOSKELETAL: There was no tenderness or effusions noted. Muscle strength and tone were normal. EXTREMITIES: No cyanosis, clubbing or edema. NEUROLOGIC: Alert and oriented x 3. NIH stroke scale as documented below, she has left-sided weakness and her sensation is intact to light touch but it is diminished on the left with a sharp object. She has a mild facial asymmetry on the left. Objective ECG Impression: Normal sinus rhythm. No evidence of ischemia. Imaging Chest x-ray: Radiologist's impression: Inreased left basilar/retrocardiac opacity. There is mild left effusion. Superimposed pneumonia and/or pneumonia appears present. CT scan - head: Radiologist's impression: No acute intracranial process. If there is high clinical suspicion for intracranial metastases, consider further evaluation with dedicated MRI brain with and without contrast for improved study sensitivity. Labs Result Diagrams: 06/22/19 14:00 06/22/19 14:32 Labs: Laboratory Results - last 24 hr 06/22/19 06/22/19 06/22/19 14:00 14:32 14:32 WBC 15.2 H RBC 4.52 Hgb 12.4 Hct 37.2 MCV 82.2 MCH 27.4 MCHC 33.3 RDW 14.7 Plt Count 434 H Neut % (Auto) 79.6 H Lymph % (Auto) 13.4 L [place] % (Auto) 5.5 Eos % (Auto) 0.5 L Baso % (Auto) 1.0 Neut # (Auto) 47354 H Lymph # (Auto) 2000 [place] # (Auto) 800 Eos # (Auto) 100 Baso # (Auto) 200 H PT 12.4 INR 1.1 APTT 31 Sodium 132 L Potassium 3.9 Chloride 96 L Carbon Dioxide 30 BUN 12 Creatinine 0.50 L Estimated GFR > 60.0 BUN/Creatinine Ratio 24.0 H Glucose 160 H Calcium 8.5 Total Bilirubin 0.4 AST 22 ALT 17 Alkaline Phosphatase 68 Total Protein 6.6 Albumin 3.2 L Globulin 3.4 Albumin/Globulin Ratio 0.9 L Assessment & Plan Assessment & Plan narrative: Marisol Vasquez is a 73-year-old female with past medical history of 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 She is admitted to Medicine for further management of likely CVA. 1. Left-sided weakness, numbness, and facial droop -her symptoms started yesterday morning with Left facial numbness and then this morning developed left-sided weakness and numbness. This most likely indicates an acute CVA. Her head CT was unremarkable. She continues to have left-sided symptoms and her stroke scale is currently 4. Patient has no known history of atrial fibrillation, and denies palpitations. Suspect ischemic etiology. -continue aspirin daily via PEG tube and initiate Lipitor 80 mg tonight. -risk stratify with A1c, lipid panel, and TSH with morning labs -obtain MRI stroke -obtain TTE -NIH stroke scale Q shift -PT and OT eval -continue telemetry 2. Hypertension, acute on chronic, present on admission-patient has mildly elevated blood pressures which have improved since arrival to the floor. She was more hypertensive in the ED. This may be due to anxiety from her acute cond ition. -consider adding antihypertensive if she remains persistently above 140 systolic or 90 diastolic. -allow permissive hypertension until tomorrow morning, but treat as needed for systolics greater than 180. 3. Leukocytosis, acute, present on admission -this may be reactive secondary to above likely CVA. She also has a left retrocardiac infiltrate on chest x-ray, but no symptoms including cough or shortness of breath to indicate pneumonia. Will check a UA as well, but will can continue to monitor and recheck her CBC in the morning. During her last admission she was treated for possible aspiration with Zosyn and was discharged on oral antibiotics for her PEG tube. She does not clinically appear to have pneumonia at this time. 4. Hyponatremia, chronic, present on admission -patient has chronic hyponatremia which is mild, she is asymptomatic. -continue to follow BMP 5. History of esophageal cancer -no active treatment -Lovenox for DVT prophylaxis Code: Full, patient elects surrogate decision maker as Alejandra DVT: Lovenox daily Dispo: Patient is admitted under inpatient status as her stay is likely to exceed 2 midnights. Scores NIHSS Level of Conciousness: Alert, keenly responsive Ask month/age: Answers both questions correctly. Open/close eyes, close hand: Performs both tasks correctly Best gaze horizontal: Normal Visual ray: No visual loss Facial palsy: Minor paralysis, flattened nasolabial fold, asymmetry on smiling Left arm drift: Drifts down, not to bed Right arm drift: No drift for full 10 sec Left leg drift: Drifts down, not to bed Right leg drift: No drift for full 5 sec Limb ataxia: Absent (cant test secondary to weakness on L) Sensory on face/arms/legs: Mild to moderate sensory loss, can tell touch Best language: No aphasia, normal Dysarthria: Normal Extinction or inattention: No abnormality Total NIH Stroke scale score: 4
--- NOTE | 2019-06-22 18:10 | DI.ECHO.S_ITS ---
[place] +---------+ Hospital +---------+ : : [address] : : : : [id number] : : : : Phone: [phone]+ Echocardiogram Report + + :Name: GURDEEP ACOSTA Study Date: 06/23/2019 Height: 64 in : :[facility] Weight: 120 lb: : Gender: Female BSA: 1.6 m2 : :: 1945 Age: 73 yrs : :Reason For Study: CVA : : Performed By: [facility] Staff : :Referring: JORDYN LEE : + + Interpretation Summary The left ventricle is normal in size, wall thickness, and systolic function without any focal wall motion abnormalities with the ejection fraction visually estimated to be 60-65%. Diastolic parameters suggest probable normal left ventricular diastolic function and normal filling pressures. The right ventricle is normal in size and function. Pulmonary artery pressures cannot be estimated because of the lack of a measurable TR jet velocity but the IVC suggests a CVP of around 8 mmHg. Both atria are normal in size. The aortic valve is not well visualized but appears moderately calcified yet opens well. A bicuspid aortic valve cannot be excluded. There is mild to moderate aortic regurgitation. There is no other significant valvular heart disease. Procedure: A two-dimensional transthoracic echocardiogram with color flow and Doppler was performed. The study quality was technically adequate. There is no prior echocardiogram noted for this patient. The patient was in normal sinus rhythm during the exam. Left Ventricle: The left ventricle is normal in size, wall thickness, and systolic function without any focal wall motion abnormalities. The ejection fraction is estimated to be 60-65%. Diastolic parameters suggest probable normal left ventricular diastolic function and normal filling pressures. Right Ventricle: The right ventricle is normal in size and function. Atria: Both atria are normal in size. The interatrial septum is intact with no evidence for an atrial septal defect. Mitral Valve: There is mild mitral annular calcification. The mitral valve leaflets appear mildly thickened, but open well. There is no mitral regurgitation noted. Aortic Valve: The aortic valve is not well visualized. The aortic valve is moderately calcified. The aortic valve opens well. A bicuspid aortic valve cannot be excluded. There is mild to moderate aortic regurgitation. Tricuspid Valve: The tricuspid valve is normal in structure and function. There is trace tricuspid regurgitation. Pulmonary artery pressures cannot be estimated because of the lack of a measurable TR jet velocity but the IVC suggests a CVP of around 8 mmHg. Pulmonic Valve: The pulmonic valve is not well visualized. There is trace pulmonic regurgitation. There is no other significant valvular heart disease. Great Vessels: The aortic root is normal size. The dimensions of the ascending aorta are normal. The pulmonary artery is normal size. The IVC is dilated (diameter is greater than 2.1 cm) yet it collapses greater than 50% with a sniff. This suggests a right atrial pressure of 8 mm Hg. Pericardium/ Pleura There is no pericardial effusion. There is no pleural effusion. MMode/2D Measurements & Calculations LVIDd: 3.6 cm LVOT diam: 2.0 cm LVIDs: 2.4 cm Ao root diam: 2.9 cm FS: 32.8 % Aortic Jxn: 2.7 cm EPSS: 0.51 cm asc Aorta Diam: 3.1 cm IVSd: 1.0 cm LVPWd: 1.0 cm LV moreno. diameter/BSA (cm/m^2): 2.3 LV sys. diameter/BSA (cm/m^2): 1.5 LA A2 area: 18.0 cm2 RA long axis: 5.0 cm LA A4 area: 15.7 cm2 RA area: 14.4 cm2 LA length (vol): 5.2 cm RA vol: 35.0 ml LA vol: 46.1 ml RA : 22.2 ml/m2 LA vol index: 29.3 ml/m2 TAPSE: 2.7 cm Doppler Measurements & Calculations Ao V2 max: 123.9 cm/sec LVOT Max Brian: 94.3 cm/sec Ao V2 mean: 81.3 cm/sec LV V1 max P.6 mmHg Ao max P.1 mmHg LV V1 VTI: 18.5 cm Ao mean P.2 mmHg GONZÁLEZ(I,D): 2.5 cm2 Ao V2 VTI: 23.5 cm GONZÁLEZ(V,D): 2.4 cm2 sev ratio: 0.79 GONZÁLEZ indexed to BSA (cm^2/m^2): 1.6 MV E max brian: 60.7 cm/sec TR max brian: 241.2 cm/sec MV A max brian: 92.4 cm/sec TR max P.3 mmHg MV E/A: 0.66 PA V2 max: 77.6 cm/sec Med Peak E' Brian: 4.0 cm/sec PA V2 mean: 58.6 cm/sec E/E' med: 15.3 PA mean P.5 mmHg Lat Peak E' Brian: 4.3 cm/sec PA Accel Time: 0.07 sec E/E' lat: 14.0 E/e' average: 14.6 MV dec time: 0.26 sec SVLVOT): 59.3 ml Reading Physician:BEAR
[2019-06-22] MEDS: ATORVASTATIN 20 MG TABLET 80 MG PO (22:36)
[2019-06-22 23:42] LABS: Bacteria Urine None Seen; RBC Urine None Seen (0-5/HPF)
[2019-06-22 23:43] LABS: Appearance Urine UA CLEAR; Bilirubin Urine UA NEGATIVE (NEGATIVE); Color Urine UA YELLOW; Glucose Urine UA NEGATIVE (Negative); Ketones Urine UA NEGATIVE (NEGATIVE); Leukocyte Esterase Urine UA NEGATIVE (NEGATIVE); Nitrite Urine UA NEGATIVE (Negative); Occult Blood Urine UA NEGATIVE (Negative); Protein Urine UA NEGATIVE (Negative); Specific Gravity Urine UA <=1.005 (1.000-1.035); Urobilinogen Urine UA 0.2 E.U./dL (0.2)
[2019-06-22 23:56] LABS: Squamous Epithelial Cell Urine 0-1 /HPF (0-5/HPF); WBC Urine 0-1/HPF (0-5/HPF)
[2019-06-22 23:57] LABS: Culture Indicated Urine Cult Not Indicated
[2019-06-23 01:20] VITALS: BP 153/89; PULSE 74; RESP 16; TEMP 36.9; O2SAT 93
[2019-06-23 05:00] VITALS: BP 155/75; PULSE 73; RESP 16; TEMP 36.8; O2SAT 95
[2019-06-23 05:22] LABS: Add Manual Diff / Slide Review NO; Basophils Absolute Auto 100 /uL (0-100); Basophils Percent Auto 0.9 % (0-2); Eosinophils Absolute Auto 100 /uL (0-450); Eosinophils Percent Auto 0.9 % (2-4); Hematocrit 34.2 % (36-46); Hemoglobin 11.1 g/dL (12.0-16.0); Lymphocytes Absolute Auto 2600 /uL (1100-4500); Lymphocytes Percent Auto 16.6 % (25-40); Mean Corpuscular HGB Conc 32.5 % (30-36); Mean Corpuscular Hemoglobin 26.9 PG (26-34); Mean Corpuscular Volume 82.9 fL (80-100); Monocytes Absolute Auto 1000 /uL (0-900); Monocytes Percent Auto 6.6 % (3-14); Neutrophils Absolute Auto 11900 /uL (1500-7000); Platelet Count 392 X10^3/uL (150-400); Red Blood Cell Count 4.13 X10^6/uL (4.0-5.2); Red Cell Distribution Width 14.5 % (11.6-14.8); White Blood Cell Count 15.8 X10^3/uL (4.5-11.0)
[2019-06-23 05:43] LABS: Alanine Aminotransferase 15 IU/L (<35); Albumin Globulin Ratio 0.9 (1.0-2.8); Alkaline Phosphatase 78 U/L (38-126); Aspartate Aminotransferase 22 IU/L (14-36); Bilirubin Total 0.5 mg/dL (0.2-1.3); Bilirubin Unconjugated 0.4 mg/dL (0.0-1.1); Blood Urea Nitrogen 8 mg/dL (7-17); Calcium 8.7 mg/dL (8.4-10.2); Carbon Dioxide 29 mmol/L (22-32); Chloride 99 mmol/L (98-107); Cholesterol 166 mg/dL (140-199); Estimated Glomerular Filt Rate > 60.0 mL/min (>60); Globulin 3.4 g/dL (1.7-4.1); Glucose 114 mg/dL (80-110); HDL Cholesterol 48 mg/dL (40-60); HEMOLYSIS < 15 (0-50); LDL Cholesterol Calculated 98 mg/dL (<100); Magnesium 1.8 mg/dL (1.6-2.3); Potassium 4.1 mmol/L (3.4-5.1); Sodium 135 mmol/L (137-145); Total Protein 6.4 g/dL (6.3-8.2); Triglycerides 99 mg/dL (35-150)
[2019-06-23 05:46] LABS: Hemoglobin A1C% w Est Avg Glu 5.8 % (4.0-6.0)
[2019-06-23 06:11] LABS: TSH w/ Reflex to FT4 3.37 uIU/mL (0.47-4.68)
--- NOTE | 2019-06-23 07:15 | PC.NURSE ---
Day shift: Pt off unit for MRI at this time.
--- NOTE | 2019-06-23 07:19 | PC.NURSE ---
Day shift: Pt did not go to MRI at this time. Will go at approx 1030.
[2019-06-23 08:00] VITALS: BP 180/90; PULSE 73; RESP 16; TEMP 36.8; O2SAT 98
[2019-06-23] MEDS: ASPIRIN 81 MG CHEW TAB PO (09:11)
[2019-06-23] MEDS: ENOXAPARIN 40 MG/0.4 ML SYRINGE SUBCUT (09:11)
--- NOTE | 2019-06-23 09:29 | CM.DANOTE ---
Addendum entered by Maribel Vazquez LPN 06/23/19 14:12: Met now in followup with pt and then called her son Henrik (who will be in shortly). SNF agency list: discussed: choice: [facility] as is in her home town of [place]. Referral: to [facility]: is reviewing for consideration of acceptance. INPT rehab discussed: only facility in [facility] is [facility] in [place]. Both agree to have referrals given to both with expectation that the best setting for pt will be clearer as her POC continues. [facility] Alisa is faxing clinical notes to [facility]. These to include physician notes, city designer notes re tube feed specifics, OT/PT evals and this DCP assessment and addendum notes. Fax is:[phone]. Will call admissions at [facility] now: [phone]/done. Spoke with Melva who will review the referral. Henrik does confirm that he and his mother have discussed POA paperwork and thinks this is completed. He will bring in what he has and, if not, would anticipate that he and his mother can complete this here at using the notary from the Medical Records dept. Addendum entered by Maribel Vazquez LPN 06/23/19 13:51: MRI is completed and showing multiple areas of acute infarcts. Dr. 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 OT Aliya has just completed her eval and states she is recommending consideration of snf vs inpt rehab setting. She notes pt with some cognitive deficits and says her son Henrik, present during the OT eval, confirmed that he has been seeing this with her at home lately. PT Sherie recommends same. Both note it is unclear at this point if snf or inpt would be most helpful for pt as her stroke rehab will be make more complex by with her cancer dx and her chosen treatment pathway for this disease process. ABDULKADIR Pisano has updated Dr. Call re the therapists recommendations. Addendum entered by Maribel Vazquez LPN 06/23/19 11:05: Met with pt and introduced self and role. (Am familiar with this pt from her prior admission here. She presents much differently at this time than the last time this DCPlanner met with her). Pt is a 73 year old female who admitted yesterday afternoon to care of the hospitalist team. Payer: Medicare and [employer] D Admission status: INPT: confirmed by UR JEFF REINOSO: noted: see template below PCP: Swetha Nair Pt also follows with [facility] and sees oncologist Dr. Barrera and also sees a Naturopathic physician in [place] for alternative treatment therapies. When last here she was in process of looking at AD paperwork and making some decisions. She had not assigned DPOA to anyone....will check on this again. Pt is now admitted with + CVA and L sided deficits. She does live alone, does her own bolus tube feeds (newly in place since March 2019). 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 [employer] Natalie is seeing her and setting up recommendations for nursing staff to assist pt in this as she currently is unable manage same. Pt is found lying in bed, looking anxious. Says I will need someone to take care of me when I leave the hospital. I can't get up by myself right now and I live alone. Had brief conversation re help at home ([facility] but with addition of caregiver which would likely be private pay at this point vs snf rehab/recovery stay. (or perhaps INPT rehab: [facility] in [facility]) Discussed in Rounds: Dr. Call stated that he expected pt would likely recover enough to go home. PT and OT will be seeing pt and will await their input. Pt has a supportive son Henrik Vasquez/[place]: [phone] and is a part of the [employer]. P: to be determined. Home, snf, inpt rehab .....will check in later with pt today as time allows. Original Note: Discharge Planning/Care Management DCP: assessment: case received, EMR reviewed and met with pt now. Introduced self and role. Will resume this note after Team Rounds. CM Discharge Assessment Start: 06/23/19 09:27 Freq: Status: Active Protocol: Document 06/23/19 09:27 ITV (Rec: 06/23/19 09:29 ITV [id number]) Discharge Planning Assessment Advance Directives? No History Provided By Patient,Medical Record Has Patient been admitted in last 30 Yes days? Comment Pt was admitted to 06/10 with a d/c to home settin /2 She readmits 06/22 and is + new CVA. Prior Living Arrangements Apartment/Condo Household Members none Whiteboard Updated in Patient Room with Yes name and ext. # of Assistance Coordinator Review Status In Process
--- NOTE | 2019-06-23 10:03 | PC.NURSE ---
Day shift: Off unit for MRI at approx 1000.
[2019-06-23 10:17] VITALS: BMI 20.5
--- NOTE | 2019-06-23 10:28 | DIET.PN ---
Dietary Progress Note Assessment: Ms Vasquez is a 73y F admitted for L sided weakness, possible TIA c active esophageal cancer w/o traditional tx. Pt has PEG tube and follows home routine of gravity bolus feeding [employer] 1.0 4x/d @ 800, 1400, 1600, 2000, 325mL c 400mL flushes. Pt asking for help c bolus feeding r/t L sided weakness, her son is bringing home formula in to use here, we will provide Jevity 1.2 if pt does not have adequate fluid amount. 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 Interventions: 1. Continue gravity bolus feeds per home routine of gravity bolus feeding [employer] 1.0 4x/d @ 800, 1400, 1600, 2000, 325mL c 400mL flushes. Head of bed elevated during feeds and 30 minutes post feed. Diet Order: TF EER: 1700kcal @30kcal/kg, 83g PRO @1.5g/kg (malnutrition) Monitoring/Evaluations: Consider increasing by one bolus/d to better meet current nutrition needs or switch to [employer] 1.2
--- NOTE | 2019-06-23 11:57 | OT.IP.EVAL ---
Current Diagnoses Cerebral infarction, unspecified (06/22/19) Past Medical History (Last Reviewed 06/22/19 @ 15:00 by Gricelda Srivastava DO) Esophageal cancer (Chronic) Esophageal spasm (Acute) Surgical History (Last Reviewed 06/22/19 @ 15:00 by Gricelda Srivastava DO) Encounter for feeding tube placement (Acute) Occupational Therapy Inpatient Evaluation/Re-Eval M1 PT/OT-IP Prior Functional Status Start: 06/23/19 08:51 Freq: NEEDED Status: Active Protocol: Document 06/23/19 12:30 AW (Rec: 06/23/19 14:08 AW [id number]) Medical Review Prior Functional Status Medical History Reviewed Yes Diet/Fluid Consistency NPO Communication WNL Mobility and Gait Pt was independent without use of assistive device Activities of Daily Living and IADL's Independent. Pt has had a PEG tube since March and managed her own feedings. 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 She was still working up until two weeks ago Social History Household Members none Living Arrangements Apartment/Condo Number of Floors (Floors) One Floor Number of Stairs To Enter/Railing? Pt lives in a basement apartment with 5 steps down to enter, no railing. 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 She lives alone. Her son, Henrik, lives in [place] and provides support. M1 PT/OT-IP Prior Functional Status Start: 06/23/19 13:50 Freq: NEEDED Status: Active Protocol: Document 06/23/19 13:50 [facility] (Rec: 06/23/19 14:20 [facility] [id number]) Medical Review Prior Functional Status Medical History Reviewed Yes Diet/Fluid Consistency NPO Communication Independent. Mobility and Gait Independent with no devices. Activities of Daily Living and IADL's Independent. Prior Functional Level (Other details) Social History Household Members none Living Arrangements Apartment/Condo Number of Floors (Floors) One Floor Number of Stairs To Enter/Railing? 5 steps with no hand rails going down to her basement apartment. Home Environment High Toilet,Tub/Shower Employment Status Self-Employed M2 OT-IP Current Condition Start: 06/23/19 13:50 Freq: Status: Active Protocol: Document 06/23/19 13:50 [facility] (Rec: 06/23/19 14:20 [facility] [id number]) Occupational Therapy Current Condition Current Condition Evaluation Date 06/23/19 Treatment Diagnosis Right CVA (infarcts R temporal , occipital, thalamus, and bilateral cerebellar hemispheres Diagnosis Onset Date 06/22/10 Post Operative Precautions Other Precautions Please place gait belt above her PEG tube area. Weight Bearing Status Weight Bearing Status Weight Bear as Tolerated M3 OT- IP Subjective and Pain Start: 06/23/19 13:50 Freq: Status: Active Protocol: Document 06/23/19 13:50 [facility] (Rec: 06/23/19 14:20 [facility] [id number]) OT- Subjective Occupational Therapy Visit Type Type Initial Evaluation Visit Start Time 11:57 Visit Stop Time 12:59 Total Visit Minutes 62 Occupational Therapy Visit Comments Patient Comments Pt willing to get up and mainly feeling a little weak and dizzy. Patient/Caregiver Goals Pt realizes that she can not care for herself at this time and open to going to rehab. OT Pain Assessment Pain When Pain Assessed At Rest Pain Present Pain Present Denied Pain M4 OT- IP ADL's Start: 06/23/19 13:50 Freq: Status: Active Protocol: Document 06/23/19 13:50 [facility] (Rec: 06/23/19 14:20 [facility] [id number]) OT [id number] Comments OT Self-Feeding Comments Pt NPO has a peg tube due to esophageal adenocarcinoma since 03/2019. OT ADL-Grooming General Evaluation Grooming Ability Standby Assistance Areas Needing Assistance Retrieving/Set-up of Grooming Items Comments OT Grooming Comments Pt needing set-up for items. Pt mainly using right hand for needs, but able to assist with left hand but with decreased accuracy and ability to hold her hair to tie, toothpaste cap, and to be able to feel the hair tie to take out of her hair. Educated to look when she is moving her left hand so accurately able to guide her hand to reach for objects. OT ADL-Oral Care General Eval Oral Care Ability Independent OT ADL-Dressing General Eval Lower Body Dressing Ability Standby Assistance Comments OT Dressing Comments Pt able to slide in her feet to her slipper and needing move time to help guide left foot into her slipper. OT ADL-Toileting Comments OT Toileting Comments Pt not having to use the toilet at this time. OT ADL-Bathing Comments OT Bathing Comments Not performed, pt too tired. M5 OT- IP IADL's Start: 06/23/19 13:50 Freq: Status: Active Protocol: Document 06/23/19 13:50 [facility] (Rec: 06/23/19 14:20 [facility] [id number]) OT-Instrumental Activities of Daily Living Home Safety Awareness Ability to Problem Solve Emergency Able to Problem Solve Situations Home Safety Comments Pt able to accurately answer all home safety questionairre with 100% accuracy. Medication Management Medication Management Comments Pt states prior did her own, Money Management Money Management Comments Pt states did automatic payment and paid with [employer] at the grocery store. M6 OT- IP Functional Cognition Start: 06/23/19 13:50 Freq: Status: Active Protocol: Document 06/23/19 13:50 [facility] (Rec: 06/23/19 14:[id number] Cognitive Factors Limiting Selfcare Function Cognitive Ability Level of Alertness Alert Patient Orientation Name,Date,Year,Place,Situation Attention Span Ability Capable of Focused Attention, Capable of Sustained Attention Ability to Follow Commands Able to Follow Multi-Step Commands Memory Description Short Term Impaired Safety Awareness Underestimates Need for Assistance Problem Solving Ability Needs Assist to Identify Solutions Executive Function Ability Unable to Make Plans,Unable to Organize Plans,Unable to Remember Details Cognitive Tests SLUMS Pt scored 25/30, normal score for pt is 27/30 for pt's level of education. Pt mainly having trouble with short term memory items. Pt's son states recently has been aware that she is having more difficulty with her memory needs. Cognitive Comments Cognitive Assessment Comments Pt scored 259 seconds on [place] Making Part B and also needing cue to corrections on the assessment. Pt's score implied severe impairments for executive function, visual attention, problem solving, speed of processing, task switching, and mental flexibility and therefore not recommended for pt to be driving at this time. OT- Vision and Hearing OT- Hearing Assessment OT- Hearing Assessment WFL OT- Vision Assessment Visual Acuity Glasses All The Time Visual Attentiveness WFL Visual Convergence Impaired Visual Downing WFL Diplopia Absent M7 OT- IP Mobility and Balance Start: 06/23/19 13:50 Freq: Status: Active Protocol: Document 06/23/19 13:50 [facility] (Rec: 06/23/19 14:20 [facility] [id number]) OT- Bed Mobility Assessment Rolling Level of Assistance Standby Assistance Supine to Sit Supine to Sit Assist Standby Assistance,Minimal Assistance OT-Transfer Assessment Sit to and From Stand Sit to and from Stand Minimal Assistance Transfers Transfer Ability Minimal Assistance Technique Transfer Destination Bed,Chair Transfer Technique Stand Step Pivot Devices Transfer Assistive Devices Gait Belt,Front Wheeled Walker Comments Mobility Comments Initially pt able to get to the edge of the bed without assist and tend loss of balance posteriorly and needing RAQUEL to catch her balance. RAQUEL to stand with FWW and to walk with FWW. Pt having difficulty to pick and shovel man her left foot and tends to externally rotate outwards when she walks with FWW. Pt fatigues quickly and having to sit down. OT- Gait Assessment Gait Gait Assistance Required: Minimum Assistance Assistive Devices Assistive Device Gait Belt OT- Balance Assessment Sitting Balance and Reactions Static Sitting Balance Ability Good Dynamic Sitting Balance Ability Fair Standing Balance and Reactions Static Standing Balance Ability Fair M8 OT- IP Objective Assessments Start: 06/23/19 13:50 Freq: Status: Active Protocol: Document 06/23/19 13:50 [facility] (Rec: 06/23/19 14:20 [facility] [id number]) OT Gross Range of Motion Upper Extremity Range of Motion Assessment Within Functional Limits OT Strength Upper Extremity Strength Assessment Bilaterally Impaired Comments Strength Comments Right shoulder 4-/5 to distal 4/5 Left shoulder 4/5 to distal 4- /5 OT- Coordination Assessment Upper Extremity Finger to Nose Test Left UE Impaired Finger Tapping Test Left UE Impaired Comments Coordination Comments Left hand /arm ataxia and difficulty at times for pt to keep track of. OT Sensation Assessment Comments Summary Comments WFL for light touch but feels a little numb. Pt decreased for proprioception as did not notice where her arm was in the recliner and states earlier got her arm caught in the bed rail and did not realize that it was stuck. Pt not able accurately grasp her glasses on her left side when taking them off. Edema Edema Absent M9 OT- IP Assessment and Plan Start: 06/23/19 13:50 Freq: Status: Active Protocol: Document 06/23/19 13:50 [facility] (Rec: 06/23/19 14:20 [id number] OT Summary Assessment and Plan Potential Rehabilitation Potential Good Analytic Complexity at Evaluation Moderate Summary OT Impairments Strength,Balance,Coordination, Sensation,Functional Cognition ,Functional Mobility,Grooming, Dressing,Toileting,Bathing, Toilet Transfers,Shower Transfers Progress Towards Goals Progressing Toward Goals Assessment Summary Pt MIN complexity due to recent CVA and main barriers are decreased proprioception of left side of her body, dynamic balance, strength, and now needing assist for ADL and functional mobility needs. Pt also having deficits with short term memory and mental flexibilty. 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 Goals Grooming Goal Independent Dressing Goal Independent Toileting Goal Independent Bathing Goal Standby Assistance Toilet Transfer Goal Independent Shower Transfer Goal Contact Guard Assistance Patient/Caregiver Education Goal Caregiver Independent Assisting Patient OT-Other Goals Grooming goal in standing. Pt to be able to independently do her bolus feed when nursing present. Days to Meet Goals 15 Frequency of Treatment Frequency Of Treatment Once a Day Treatment Plan OT Treatment Plan ADL Training,Functional Cognition Training,Functional Mobility,Patient/Family Education,Discharge Planning Other Treatment Recommendations and Next ACL, shower Treatment Focus Discharge Recommendations OT Discharge Recommendations SNF Rehab,Acute Rehab Home Equipment Needs Defer to rehab
[2019-06-23 12:00] VITALS: BP 141/83; PULSE 75; RESP 19; TEMP 36.8; O2SAT 95
--- NOTE | 2019-06-23 12:30 | PT.IIE ---
Current Diagnoses Cerebral infarction, unspecified (06/22/19) Surgical History (Last Reviewed 06/22/19 @ 15:00 by Gricelda Srivastava DO) Encounter for feeding tube placement (Acute) Medical History (Last Reviewed 06/22/19 @ 15:00 by Gricelda Srivastava DO) Esophageal cancer (Chronic) Esophageal spasm (Acute) Physical Therapy Inpatient Evaluation/Re-Eval M1 PT/OT-IP Prior Functional Status Start: 06/23/19 08:51 Freq: NEEDED Status: Active Protocol: Document 06/23/19 12:30 AW (Rec: 06/23/19 14:08 AW [id number]) Medical Review Prior Functional Status Medical History Reviewed Yes Diet/Fluid Consistency NPO Communication WNL Mobility and Gait Pt was independent without use of assistive device Activities of Daily Living and IADL's Independent. Pt has had a PEG tube since March and managed her own feedings. 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 She was still working up until two weeks ago Social History Household Members none Living Arrangements Apartment/Condo Number of Floors (Floors) One Floor Number of Stairs To Enter/Railing? Pt lives in a basement apartment with 5 steps down to enter, no railing. 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 She lives alone. Her son, Henrik, lives in [place] and provides support. M2 PT-IP Current Condition Start: 06/23/19 08:51 Freq: NEEDED Status: Active Protocol: Document 06/23/19 12:30 AW (Rec: 06/23/19 14:08 AW [id number]) Physical Therapy Current Condition Current Condition Evaluation Date 06/23/19 Treatment Diagnosis CVA, left-sided weakness, incoordination, ataxia, difficulty in walking Onset Date 06/21/19 Precautions Other Precautions Gait belt high to avoid PEG tube. Weight Bearing Status Weight Bearing Status Full Weight Bearing M3 PT-IP Subjective Start: 06/23/19 08:51 Freq: NEEDED Status: Active Protocol: Document 06/23/19 12:30 AW (Rec: 06/23/19 14:08 AW [id number]) Subjective Physical Therapy Visit Type Type Initial Evaluation Visit Start Time 11:58 Visit Stop Time 12:30 Total Visit Minutes 32 Notes Pt seen with OT. Pt's son, Henrik, present for evaluation Number of MANAGER DIVERSITY Visits 0 Physical Therapy Visit Comments Patient Comments I'm tired of feeling so weak. Patient Goals To be able to take care of herself Therapy Pain Assessment Pain When Pain Assessed During Mobility Pain Present Pain Present Denied Pain M4 PT-IP Mobility and Gait Start: 06/23/19 08:51 Freq: NEEDED Status: Active Protocol: Document 06/23/19 12:30 AW (Rec: 06/23/19 14:08 AW [id number]) PT-Bed Mobility Assessment Supine to Sit Supine to Sit Contact Guard Assistance Scooting Scooting to Edge of Bed Contact Guard Assistance PT-Transfer Assessment Sit to and From Stand Sit to and from Stand Minimal Assistance,1 Person Assistance,Use of Upper Extremities Equipment Transfer Assistive Device Gait Belt,Front Wheeled Walker Orthotic/Prosthetic Devices or Brace: No Transfers Transfer Destination Chair Transfer Technique pt ambulated with FWW Transfer Ability Level of Assist Minimal Assistance,1 Person Assistance,Use of Upper Extremities Comments Mobility Comments Pt completed supine to sit CGA with fair control of left arm and leg. Sitting EOB, pt had a posterior loss of balance requiring min A to recover, but was then able to support herself with upper extremities . Sit to stand required min A x 1 using FWW. Pt was able to drop her arms and reach across midline to overhead targets with her right arm. Pt had difficulty coordinating this same movement with her left arm, but was able to maintain her balance without UE support . Transfer to chair required min A x 1 for balance and cues for sequencing. Gait Assessment Gait Gait Assistance Required: Minimum Assistance Distance (Feet) 15 Able to Maintain Weight Bearing Status Yes During Gait Assistive Devices Assistive Device Gait Belt,Front Wheeled Walker Orthotic/Prosthetic Devices or Brace: No Gait Deviations General Gait Pattern Ataxic,Decreased Stride Length Factors Limiting Gait Function Factors Limiting Gait Function Decreased Activity Tolerance, Decreased Sensation,Decreased Strength,Incoordination,Poor Balance Comments Gait Comments Pt ambulated ~15 feet in room with FWW min A x 1 due to incoordination and poor balance. In gait, her left leg was externally rotated. Left swing phase was characterized by increased hip flexion/ steppage gait and incoordination with footfall/ heelstrike. In standing, pt was instructed to turn her head side to side which was tolerable. Head nods resulted in patient reports of nausea, prompting return to sitting in the chair. Stair Climbing Assessment Comments Stair Climbing Comments Not assessed. PT-Balance Assessment Sitting Balance and Reactions Static Sitting Balance Ability Fair Dynamic Sitting Balance Ability Poor Standing Balance and Reactions Static Standing Balance Ability Fair Dynamic Standing Balance Ability Poor Device Used FWW M5 PT-IP Objective Assessments Start: 06/23/19 08:51 Freq: NEEDED Status: Active Protocol: Document 06/23/19 12:30 AW (Rec: 06/23/19 14:08 AW [id number]) Orientation Orientation/Cognition Level of Alertness Alert Orientation Name,Year,Place,Situation Language Function Ability No Deficits Noted Safety Awareness Understands Safety Issues Memory Description No Deficits Noted Comments PT noted signs of left neglect . See OT note for cognitive assessment. Gross Range of Motion Lower Extremity ROM Assessment Left Impaired Strength Lower Extremity Strength Assessment Bilaterally Impaired Hip L 4-/5; R 4/5 Knee L 4-/5; R 4+/5 Ankle L 4+/5; R 4/5 Coordination Assessment Gross Coordination Gross Coordination Impaired Assessment Finger to Nose Test Moderate Impairment Heel on Coello Test Moderate Impairment Coordination Comments Pt unable to touch her nose with left index finger with eyes closed. On heel/coello testing, pt unable to maintain contact of left heel on right coello through movement. Sensation Assessment Sensation Gross Sensation Left UE Impaired,Left LE Impaired Light Touch Impaired Comments Sensation Comments Dull light touch sensation in no identifiable pattern on the left side. Did not assess sharp/dull sensation or proprioception. M6 PT-IP Treatment Start: 06/23/19 08:51 Freq: NEEDED Status: Active Protocol: Document 06/23/19 12:30 AW (Rec: 06/23/19 14:08 AW [id number]) Physical Therapy Treatment Education Education Provided Precautions,Safety M7 PT-IP Assessment and Plan Start: 06/23/19 08:51 Freq: NEEDED Status: Active Protocol: Document 06/23/19 12:30 AW (Rec: 06/23/19 14:08 AW [id number]) PT Summary Assessment and Plan Potential Rehabilitation Potential Good Status of Condition at Evaluation Evolving Summary Impairments ROM,Strength,Balance, Coordination,Sensation,Bed Mobility,Transfers,Gait, Activity Tolerance Assessment Summary Justine is a 73 yo woman seen one day after admission with left- sided weakness, numbness, and facial droop. CT of brain was clear. MRI notes: Acute/ subacute infarcts involving the right temporal lobe, right occipital lobe, right thalamus and bilateral cerebellar hemispheres. This report was not available at time of evaluation. Pt has a history of esophageal cancer treated conservatively and recently had a PEG tube placed due to severe dysphagia. She was independent with all functional mobility and managed her own tube feedings. Patient now presents with left-sided weakness, signs of left-sided neglect, poor coordination with left upper and lower extremity, and ataxic gait. She required min A x 1 for transfers and ambulation. Justine will benefit from continued acute and subacute PT to address these impairments and to maximize her independence in her home setting. Prognosis is unclear, but patient will require acute rehab vs SNF rehab with possible consideration of long -term care depending on progress. Goals Bed Mobility Goal Independent Transfer Goal Standby Assistance,Front Wheeled Walker Gait Goal Standby Assistance,Front Wheel Walker Gait Distance 200 Other Goals up/down 5 steps without railing using least restrictive assistive device CGA Days to Meet Goals 10 Frequency of Treatment Frequency Of Treatment Twice a Day Treatment Plan Physical Therapy Treatment Plan Bed Mobility Training,Transfer Training,Gait Training, Therapeutic Exercise,Balance Retraining,Discharge Planning, Neuromuscular Re-ed, Coordination Retraining Other Recommendations and Next Treatment gait training, coordination Focus training Recommendations To Nursing Amount of Assist Needed 1 Person Assist Discharge Recommendations PT Discharge Recommendations SNF Rehab,Acute Rehab Other Discharge Recommendations subacute rehab: acute vs SNF Equipment Needed for Home Before defer to rehab setting Discharge
--- NOTE | 2019-06-23 12:45 | P.PN_ITS ---
Subjective Subjective Date Patient Seen: 06/23/19 Time Patient Seen: 12:46 Interval history: Marisol wan is a 73-year-old female with past medical history of esophageal cancer who was admitted with left-sided weakness, numbness and a left-sided facial droop. She seen for follow-up today. She is still quite anxious and scared after the event yesterday. She did endorse some emesis yesterday evening with her oral secretions. She has her own tube feeds which s he provides, nursing staff is helping her give them. She has slightly increased strength today on the left but is still profoundly weak and her left-sided facial droop has improved as well. Her MRI today revealed acute and subacute infarcts involving the right temporal lobe, occipital lobe, thalamus and also cerebellum. Her right LABOR OPERATOR is also occluded. She has had no events on telemetry and remains in normal sinus rhythm. Her echocardiogram today is unremarkable with normal systolic and moreno tolic function. Exam Vital Signs (past 8 hours): - 06/23/19 05:00 06/23/19 08:00 06/23/19 12:00 Temperature 98.3 F 98.2 F 98.3 F Pulse Rate 73 73 75 Respiratory Rate 16 16 19 Blood Pressure 155/75 H 180/90 H 141/83 H Pulse Oximetry 95 98 95 Oxygen Delivery Method Nasal Cannula Oxygen Flow Rate 0 Narrative Exam Narrative: GENERAL APPEARANCE: Well developed, well nourished, appears mildly anxious. SKIN: Inspection of the skin reveals no rashes, ulcerations or petechiae. HEENT: The sclerae were anicteric and conjunctivae were pink and moist. Extraocular movements were intact and pupils were equal, round with normal accommodation. External inspection of the ears and nose showed no scars, lesions, or masses. Lips, teeth, and gums showed normal mucosa. The oral mucosa, hard and soft palate, tongue and posterior pharynx were unremarkable. NECK: Supple and symmetric. There was no thyroid enlargement, and no tenderness, or masses were felt. CHEST: Normal AP diameter and normal contour without any kyphoscoliosis. LUNGS: Auscultation of the lungs revealed no wheezes, rhonchi, or rales. CARDIOVASCULAR: There was a regular rate and rhythm without any murmurs, gallops, rubs. Peripheral pulses were 2+ and symmetric. ABDOMEN: Soft and nontender with normal bowel sounds. No ascites was noted. Peg tube without erythema, induration. MUSCULOSKELETAL: There was no tenderness or effusions noted. Muscle strength and tone were normal. EXTREMITIES: No cyanosis, clubbing or edema. NEUROLOGIC: Alert and oriented x 3. she has left-sided weakness which is slightly improved today and her sensation is intact to light touch but it is diminished on the left with a sharp object. She has a mild facial asymmetry on the left which is improved since yesterday. Objective Labs Result Diagrams: 06/23/19 04:50 06/23/19 04:50 Labs: Laboratory Results - last 24 hr 06/22/19 06/22/19 06/22/19 14:00 14:32 14:32 WBC 15.2 H RBC 4.52 Hgb 12.4 Hct 37.2 MCV 82.2 MCH 27.4 MCHC 33.3 RDW 14.7 Plt Count 434 H Neut % (Auto) 79.6 H Lymph % (Auto) 13.[address] [place] % (Auto) 5.5 Eos % (Auto) 0.5 L Baso % (Auto) 1.0 Neut # (Auto) 46473 H Lymph # (Auto) 2000 [place] # (Auto) 800 Eos # (Auto) 100 Baso # (Auto) 200 H PT 12.4 INR 1.1 APTT 31 Sodium 132 L Potassium 3.9 Chloride 96 L Carbon Dioxide 30 BUN 12 Creatinine 0.50 L Estimated GFR > 60.0 BUN/Creatinine Ratio 24.0 H Glucose 160 H Hemoglobin A1c Calcium 8.5 Magnesium Total Bilirubin 0.4 Conjugated Bilirubin Unconjugated Bilirubin AST 22 ALT 17 Alkaline Phosphatase 68 Total Protein 6.6 Albumin 3.2 L Globulin 3.4 Albumin/Globulin Ratio 0.9 L Triglycerides Cholesterol LDL Cholesterol, Calc HDL Cholesterol TSH Urine Color Urine Appearance Urine pH Ur Specific [place] Urine Protein Urine Glucose (UA) Urine Ketones Urine Occult Blood Urine Nitrate Urine Bilirubin Urine Urobilinogen Ur Leukocyte Esterase Urine RBC Urine WBC Ur Squamous Epith Cells Urine Bacteria Ur Culture Indicated? 06/22/19 06/23/19 06/23/19 23:00 04:50 04:50 WBC 15.8 H RBC 4.13 Hgb 11.1 L Hct 34.2 L MCV 82.9 MCH 26.9 MCHC 32.5 RDW 14.5 Plt Count 392 Neut % (Auto) 75.0 Lymph % (Auto) 16.[address] [place] % (Auto) 6.6 Eos % (Auto) 0.9 L Baso % (Auto) 0.9 Neut # (Auto) 98081 H Lymph # (Auto) [address] [place] # (Auto) 1000 H Eos # (Auto) 100 Baso # (Auto) 100 PT INR APTT Sodium 135 L Potassium 4.1 Chloride 99 Carbon Dioxide 29 BUN 8 Creatinine 0.50 L Estimated GFR > 60.0 BUN/Creatinine Ratio 16.0 Glucose 114 H Hemoglobin A1c Calcium 8.7 Magnesium 1.8 Total Bilirubin 0.5 Conjugated Bilirubin 0.0 Unconjugated Bilirubin 0.4 AST 22 ALT 15 Alkaline Phosphatase 78 Total Protein 6.4 Albumin 3.0 L Globulin 3.4 Albumin/Globulin Ratio 0.9 L Triglycerides 99 Cholesterol 166 LDL Cholesterol, Calc 98 HDL Cholesterol 48 TSH Urine Color Yellow Urine Appearance Clear Urine pH 7.0 Ur Specific [place] <=1.005 Urine Protein Negative Urine Glucose (UA) Negative Urine Ketones Negative Urine Occult Blood Negative Urine Nitrate Negative Urine Bilirubin Negative Urine Urobilinogen 0.2 Ur Leukocyte Esterase Negative Urine RBC None seen Urine WBC 0-1/hpf Ur Squamous Epith Cells 0-1 /hpf Urine Bacteria None seen Ur Culture Indicated? Cult not indicated 06/23/19 06/23/19 04:50 04:50 WBC RBC Hgb Hct MCV MCH MCHC RDW Plt Count Neut % (Auto) Lymph % (Auto) [place] % (Auto) Eos % (Auto) Baso % (Auto) Neut # (Auto) Lymph # (Auto) [place] # (Auto) Eos # (Auto) Baso # (Auto) PT INR APTT Sodium Potassium Chloride Carbon Dioxide BUN Creatinine Estimated GFR BUN/Creatinine Ratio Glucose Hemoglobin A1c 5.8 Calcium Magnesium Total Bilirubin Conjugated Bilirubin Unconjugated Bilirubin AST ALT Alkaline Phosphatase Total Protein Albumin Globulin Albumin/Globulin Ratio Triglycerides Cholesterol LDL Cholesterol, Calc HDL Cholesterol TSH 3.37 Urine Color Urine Appearance Urine pH Ur Specific [place] Urine Protein Urine Glucose (UA) Urine Ketones Urine Occult Blood Urine Nitrate Urine Bilirubin Urine Urobilinogen Ur Leukocyte Esterase Urine RBC Urine WBC Ur Squamous Epith Cells Urine Bacteria Ur Culture Indicated? 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 She is admitted to Medicine for an acute CVA which was confirmed on MRI today. 1. CVA, acute, present on admission-her symptoms started the morning prior to admission with Left facial numbness and then the day of admission developed left-sided weakness and numbness. MRI revealed acute and subacute infarcts involving the right temporal lobe, occipital lobe, thalamus and also cerebellum. Her right LABOR OPERATOR is also occluded. Her carotid arteries had less than 50% stenosis. -continue aspirin daily via PEG tube and initiate Lipitor 80 mg tonight. -LDL mildly elevated at 98, patient has is started on statin therapy. -TSH was unremarkable, A1c of 5.8% which indicates pre diabetes. -MR stroke as noted above. -echocardiogram was unremarkable, showing normal ejection fraction and normal diastolic dysfunction as well. -NIH stroke scale Q shift -PT and OT eval -continue telemetry 2. Hypertension, acute on chronic, present on admission-patient has mildly elevated blood pressures which have improved since arrival to the floor. She was more hypertensive in the ED. This may be due to anxiety from her acute cond ition. -consider adding antihypertensive if she remains persistently above 140 systolic or 90 diastolic. -allow permissive hypertension until tomorrow morning, but treat as needed for systolics greater than 180. 3. Leukocytosis, acute, present on admission -this may be reactive secondary to above likely CVA. She also has a left retrocardiac infiltrate on chest x-ray, but no symptoms including cough or shortness of breath to indicate pneumonia. Will check a UA as well, but will can continue to monitor and recheck her CBC in the morning. During her last admission she was treated for possible aspiration with Zosyn and was discharged on oral antibiotics for her PEG tube. She does not clinically appear to have pneumonia at this time. 4. Hyponatremia, chronic, present on admission -patient has chronic hyponatremia which is mild, she is asymptomatic. -continue to follow BMP 5. History of esophageal cancer -no active treatment -Lovenox for DVT prophylaxis 6. Pre diabetes, new diagnosis -A1c as noted above 5.8% -continue education and above lifestyle modifications. Code: Full, patient elects surrogate decision maker as Alejandra, patient is a [employer]. DVT: Lovenox daily Dispo: Patient is admitted under inpatient status as her stay is likely to exceed 2 midnights. Given her esophageal cancer and tube feeding needs she may need to be discharged to acute rehab so that she can care for herself, pending PT and OT evaluations. Quality VTE Deep Vein Thrombosis/Pulmonary Embolism Present on Admission: No
--- NOTE | 2019-06-23 14:23 | PT.IPTN ---
Reviewed by Brooklyn Wolff PTA Current Diagnoses Cerebral infarction, unspecified (06/22/19) Physical Therapy Treatment Note M2 PT-IP Current Condition Start: 06/23/19 08:51 Freq: NEEDED Status: Active Protocol: Document 06/23/19 12:30 AW (Rec: 06/23/19 14:08 AW [id number]) Physical Therapy Current Condition Current Condition Evaluation Date 06/23/19 Treatment Diagnosis CVA, left-sided weakness, incoordination, ataxia, difficulty in walking Onset Date 06/21/19 Precautions Other Precautions Gait belt high to avoid PEG tube. Weight Bearing Status Weight Bearing Status Full Weight Bearing M3 PT-IP Subjective Start: 06/23/19 08:51 Freq: NEEDED Status: Active Protocol: Document 06/23/19 14:23 JONES (Rec: 06/23/19 15:01 JONES [id number]) Subjective Physical Therapy Visit Type Type Treatment Note Visit Start Time 14:23 Visit Stop Time 14:38 Total Visit Minutes 15 Notes Treatment supervised by ESTRELLITA [place]. Number of TAPPER OPERATOR Visits 1 Physical Therapy Visit Comments Patient Comments Pt agreeable to work with therapy. Patient Goals To be able to take care of herself Therapy Pain Assessment Pain When Pain Assessed At Rest Pain Present Pain Present Denied Pain M4 PT-IP Mobility and Gait Start: 06/23/19 08:51 Freq: NEEDED Status: Active Protocol: Document 06/23/19 14:23 JONES (Rec: 06/23/19 15:01 JONES [id number]) PT-Bed Mobility Assessment Scooting Scooting to Edge of Bed Contact Guard Assistance PT-Transfer Assessment Sit to and From Stand Sit to and from Stand Contact Guard Assistance, Minimal Assistance,1 Person Assistance,Use of Upper Extremities Equipment Transfer Assistive Device Gait Belt,Front Wheeled Walker Orthotic/Prosthetic Devices or Brace: No Transfers Transfer Destination Chair Transfer Technique Pt stood from chair and sat back down Transfer Ability Level of Assist Contact Guard Assistance, Minimal Assistance,1 Person Assistance,Use of Upper Extremities Comments Mobility Comments Pt was able to perform LE strengthening exercises w/ min verbal and tactile cues. CGA for scooting to edge of chair and CGA to Min A for sit<> stand from chair w/ FWW. Cues for hand placement when standing. Pt verbalized nausea and mild dizziness upon standing and requested to sit down. Pts BP was 155/82 sitting, O2 between 91-94, and HR 95-102. Pts abdominal cramps worsened and treatment was stopped. Pt left in room w / all needs in reach. Informed RN of pts nausea and vitals. Gait Assessment Comments Gait Comments Not assessed at this time due to nausea Stair Climbing Assessment Comments Stair Climbing Comments Not assessed. PT-Balance Assessment Sitting Balance and Reactions Static Sitting Balance Ability Good Dynamic Sitting Balance Ability Fair Standing Balance and Reactions Static Standing Balance Ability Fair Dynamic Standing Balance Ability Poor Device Used FWW M5 PT-IP Objective Assessments Start: 06/23/19 08:51 Freq: NEEDED Status: Active Protocol: Document 06/23/19 12:30 AW (Rec: 06/23/19 14:08 AW [id number]) Orientation Orientation/Cognition Level of Alertness Alert Orientation Name,Year,Place,Situation Language Function Ability No Deficits Noted Safety Awareness Understands Safety Issues Memory Description No Deficits Noted Comments PT noted signs of left neglect . See OT note for cognitive assessment. Gross Range of Motion Lower Extremity ROM Assessment Left Impaired Strength Lower Extremity Strength Assessment Bilaterally Impaired Hip L 4-/5; R 4/5 Knee L 4-/5; R 4+/5 Ankle L 4+/5; R 4/5 Coordination Assessment Gross Coordination Gross Coordination Impaired Assessment Finger to Nose Test Moderate Impairment Heel on Coello Test Moderate Impairment Coordination Comments Pt unable to touch her nose with left index finger with eyes closed. On heel/coello testing, pt unable to maintain contact of left heel on right coello through movement. Sensation Assessment Sensation Gross Sensation Left UE Impaired,Left LE Impaired Light Touch Impaired Comments Sensation Comments Dull light touch sensation in no identifiable pattern on the left side. Did not assess sharp/dull sensation or proprioception. M6 PT-IP Treatment Start: 06/23/19 08:51 Freq: NEEDED Status: Active Protocol: Document 06/23/19 14:23 JONES (Rec: 06/23/19 15:01 JONES [id number]) Physical Therapy Treatment Exercises Exercises Ankle Pumps,Quad Sets,Heel Slides,Straight Leg Raises Education Education Provided Precautions,Safety Other Treatments Other Treatment Performed Pt instructed on how to perform LE strengthening exercises. M7 PT-IP Assessment and Plan Start: 06/23/19 08:51 Freq: NEEDED Status: Active Protocol: Document 06/23/19 14:23 JONES (Rec: 06/23/19 15:01 JONES [id number]) PT Summary Assessment and Plan Potential Rehabilitation Potential Good Status of Condition at Evaluation Evolving Summary Impairments ROM,Strength,Balance, Coordination,Sensation,Bed Mobility,Transfers,Gait, Activity Tolerance Assessment Summary Pt was able to scoot to edge of chair w/ CGA, stand w/ FWW with CGA to Min A x1. Upon standing, pt verbalized nausea and dizziness. Pts BP was assessed after sitting from nausea: 155/82, O2 ranged from 91-94, and HR 95-102. Pt had abdominal cramps after eating and reported she sometimes experiences nausea and cramping after receiving food. Goals Bed Mobility Goal Independent Transfer Goal Standby Assistance,Front Wheeled Walker Gait Goal Standby Assistance,Front Wheel Walker Gait Distance 200 Other Goals up/down 5 steps without railing using least restrictive assistive device CGA Days to Meet Goals 10 Treatment Plan Physical Therapy Treatment Plan Bed Mobility Training,Transfer Training,Gait Training, Therapeutic Exercise,Balance Retraining,Discharge Planning, Neuromuscular Re-ed, Coordination Retraining Other Recommendations and Next Treatment gait training, coordination Focus training Recommendations To Nursing Amount of Assist Needed 1 Person Assist Discharge Recommendations PT Discharge Recommendations SNF Rehab,Acute Rehab Other Discharge Recommendations subacute rehab: acute vs SNF Equipment Needed for Home Before defer to rehab setting Discharge
[2019-06-23 15:00] VITALS: BP 125/69; PULSE 89; RESP 18; TEMP 37; O2SAT 94
[2019-06-23] MEDS: ONDANSETRON 4 MG/2 ML INJ IV (16:34)
--- NOTE | 2019-06-23 18:09 | DI.MRI.S_ITS ---
PROCEDURE: MR STROKE Pre- and post-contrast brain MRI, non-contrast brain MR angiogram, pre- and postcontrast neck MR angiogram INDICATIONS: L sided weakness and facial droop TECHNIQUE: Brain: Noncontrast axial T1 spin echo, axial T2 fast spin echo, sagittal and axial FLAIR, coronal T2 fast spin echo, axial gradient echo, axial diffusion and ADC through the brain. After the administration of contrast, axial 3D VIBE of the cranial vasculature and brain. Brain MRA: Non-contrast 3-D time of flight MR angiogram, with multiple zsydkuh-cfssnohle-ukgzrjkpva (MIP) reformats performed. Neck MRA: Axial and sagittal TruFISP through the neck. Coronal dynamic MR angiogram during administration of contrast in the arterial and venous phases, with 3-dimenstional vhurbml-nxlkykhme-hdgylpqapa (MIP) reformats constructed from subtraction images. COMPARISON: [facility], CT, CT HEAD/BRAIN WO CON, 06/22/2019, 14:26. FINDINGS: Image quality: Excellent. BRAIN: CSF spaces: Ventricles are normal in size and shape. Basal cisterns are patent. No extra-axial fluid collections. Brain: No intracranial bleeds or mass effects. Wolf-white matter interface is normal. There is mild, diffuse cerebral volume loss. There are mild periventricular and subcortical white matter chronic microvascular ischemic changes. Foci of restricted diffusion with associated increased T2 signal noted in the medial aspect of the right temporal lobe, the right thalamus, of the right occipital lobe and the bilateral cerebellar hemispheres. Brainstem appears normal. Normal intravascular flow voids are present. Dural sinuses demonstrate normal postcontrast enhancement. No GRE weighted abnormalities identified in the brain parenchyma. No abnormal intracranial enhancement. Skull and face: Calvarial marrow signal is normal. Orbits appear normal. Sinuses: Sinuses and mastoids are clear. BRAIN MR ANGIOGRAM: Anterior circulation: Intracranial internal carotid arteries are normal in size and enhancement. The flow within the paired anterior cerebral arteries is normal and symmetric. The flow within the middle cerebral arteries is normal and symmetric. The anterior communicating artery is seen. No stenoses, occlusions, or aneurysms. Posterior circulation: The visualized portions of the vertebral arteries demonstrate normal caliber, and join to form a normal appearing basilar artery. The flow within the left posterior cerebral artery is normal. There is absence of flow signal in the right posterior cerebral artery distal to the P1 segment. No cerebral aneurysms. NECK MR ANGIOGRAM: Carotids: Great vessels demonstrate a conventional anatomy as they arise from the aortic arch. The origins of the common carotid arteries appear patent. The calibers and courses of both common carotid arteries are normal. Mild atherosclerotic irregularity noted in the origins of the internal carotid arteries bilaterally which causes less than 50% stenosis of the vessels. Posterior circulation: The origins of the vertebral arteries appear patent. More superior portions of both vertebral arteries demonstrate normal course and caliber, and join to form a normal appearing basilar artery. Miscellaneous: Subclavian arteries appear patent. Pre-contrast images through the neck show no soft tissue abnormalities. IMPRESSION: BRAIN MRI: 1. Acute/subacute infarcts involving the right temporal lobe, right occipital lobe, right thalamus and bilateral cerebellar hemispheres. 2. No abnormal intracranial mass. 3. No suspicious postcontrast enhancement. 4. Mild, diffuse cerebral volume loss. 5. Mild periventricular and subcortical white matter chronic microvascular ischemic change. BRAIN MR ANGIOGRAM: 1. Absence of flow signal in the right posterior cerebral artery distal to the P1 segment compatible with occlusion versus high-grade stenosis. 2. Otherwise normal MR angiogram of the head. NECK MR ANGIOGRAM: 1. Less than 50% stenosis of the origins of the internal carotid arteries. 2. Vertebral arteries appear fully patent. Dictated by: Tory Valentino MD, PhD on 06/23/2019 at 11:38 Approved by: Tory Valentino MD, PhD on 06/23/2019 at 11:47
[2019-06-23 19:19] VITALS: BP 151/79; PULSE 98; RESP 22; TEMP 36.8; O2SAT 95
--- NOTE | 2019-06-23 19:21 | PC.NURSE ---
Patient complaining of pain beneath right eye and nausea. Nurse notified.
[2019-06-23] MEDS: METOCLOPRAMIDE 10 MG/2 ML INJ IV (19:36)
[2019-06-23] MEDS: ATORVASTATIN 20 MG TABLET 80 MG PO (22:31)
[2019-06-24 00:17] VITALS: BP 150/86; PULSE 83; RESP 15; TEMP 36.9; O2SAT 91
[2019-06-24 05:33] LABS: Add Manual Diff / Slide Review NO; Basophils Absolute Auto 100 /uL (0-100); Basophils Percent Auto 0.9 % (0-2); Eosinophils Absolute Auto 100 /uL (0-450); Eosinophils Percent Auto 0.9 % (2-4); Hematocrit 33.7 % (36-46); Hemoglobin 11.1 g/dL (12.0-16.0); Lymphocytes Absolute Auto 2500 /uL (1100-4500); Lymphocytes Percent Auto 17.4 % (25-40); Mean Corpuscular HGB Conc 32.8 % (30-36); Mean Corpuscular Hemoglobin 26.9 PG (26-34); Mean Corpuscular Volume 81.9 fL (80-100); Monocytes Absolute Auto 900 /uL (0-900); Monocytes Percent Auto 6.5 % (3-14); Neutrophils Absolute Auto 10800 /uL (1500-7000); Neutrophils Percent Auto 74.3 % (50-75); Platelet Count 409 X10^3/uL (150-400); Red Blood Cell Count 4.12 X10^6/uL (4.0-5.2); Red Cell Distribution Width 14.9 % (11.6-14.8); White Blood Cell Count 14.5 X10^3/uL (4.5-11.0)
[2019-06-24 05:38] LABS: Alanine Aminotransferase 14 IU/L (<35); Albumin Globulin Ratio 0.9 (1.0-2.8); Alkaline Phosphatase 67 U/L (38-126); Aspartate Aminotransferase 21 IU/L (14-36); Bilirubin Total 0.6 mg/dL (0.2-1.3); Bilirubin Unconjugated 0.5 mg/dL (0.0-1.1); Blood Urea Nitrogen 12 mg/dL (7-17); Carbon Dioxide 32 mmol/L (22-32); Chloride 96 mmol/L (98-107); Estimated Glomerular Filt Rate > 60.0 mL/min (>60); Globulin 3.4 g/dL (1.7-4.1); Glucose 118 mg/dL (80-110); HEMOLYSIS < 15 (0-50); Potassium 4.1 mmol/L (3.4-5.1); Sodium 131 mmol/L (137-145); Total Protein 6.4 g/dL (6.3-8.2)
[2019-06-24 05:52] VITALS: BP 150/84; PULSE 81; RESP 16; TEMP 37; O2SAT 92
[2019-06-24 08:00] VITALS: BP 158/84; PULSE 88; RESP 18; TEMP 37.3; O2SAT 91
[2019-06-24] MEDS: ASPIRIN 81 MG CHEW TAB PO (08:58)
[2019-06-24] MEDS: ENOXAPARIN 40 MG/0.4 ML SYRINGE SUBCUT (08:58)
--- NOTE | 2019-06-24 10:33 | CM.DPC ---
Addendum entered by Sahra Cardona R.N. 06/24/19 11:50: Spoke to Natalie, art supervisor. She will be putting in a new note regarding feedings. Patient stated she has several boxes of feeding at home that she can bring in. Updated December at [facility]. Will fax her over updated dietary note regarding feeding times. Original Note: DCP Cont: Spoke to Melva in admissions at [facility]. She wanted to know updated status from P.T, emphasizing why she needs acute rehab, and plan afterward. After speaking to Gena, occupational therapist in team rounds, she indicated that it would be beneficial for her secondary to her acute CVA diagnosis, and would be a good candidate for more intense P.T. Left a message with Melva in admissions with information. Spoke to patient, and she would rather go to [facility], since it's here in [place], and has friends here. She is aware that therapy will not be as intense. Patient had friends in room, she is alert and oriented. Spoke to Gretel at [facility]. Stated that she can't get her feedings until Saturday, but if patient has enough to supply, and would need to know if formula will change. Will consult with Natalie in dietary, regarding this. P: DCP to continue to follow. Plan is for [facility], but will need to get more information on feeing supplies. Sahra Cardona RN/Chemistry Technical Officer
--- NOTE | 2019-06-24 10:48 | OT.IP.TRT ---
Current Diagnoses Cerebral infarction, unspecified (06/22/19) Occupational Therapy Treatment Note M2 OT-IP Current Condition Start: 06/23/19 13:50 Freq: Status: Active Protocol: Document 06/23/19 13:50 CCC (Rec: 06/23/19 14:20 CCC [id number]) Occupational Therapy Current Condition Current Condition Evaluation Date 06/23/19 Treatment Diagnosis Right CVA (infarcts R temporal , occipital, thalamus, and bilateral cerebellum Diagnosis Onset Date 06/22/10 Post Operative Precautions Other Precautions Please place gait belt above her PEG tube area. Weight Bearing Status Weight Bearing Status Weight Bear as Tolerated M3 OT- IP Subjective and Pain Start: 06/23/19 13:50 Freq: Status: Active Protocol: Document 06/24/19 10:48 PJM (Rec: 06/24/19 12:38 PJM [id number]) OT- Subjective Occupational Therapy Visit Type Type Treatment Note Visit Start Time 10:08 Visit Stop Time 10:48 Total Visit Minutes 40 Occupational Therapy Visit Comments Patient Comments I just feel so weak and tired. 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 OT Pain Assessment Pain When Pain Assessed After Treatment Pain Present Pain Present Pain Reported M4 OT- IP ADL's Start: 06/23/19 13:50 Freq: Status: Active Protocol: Document 06/24/19 10:48 PJM (Rec: 06/24/19 12:38 PJM [id number]) OT GNC-Sbxm-Emynice General Evaluation Diet Level for Self-Feeding NPO, pt manages own PEG tube at home since March 2019 OT ADL-Grooming General Evaluation Grooming Ability Contact Guard Assistance Areas Needing Assistance Retrieving/Set-up of Grooming Items,Combing/Brushing Hair, Face Washing Comments OT Grooming Comments Pt unsteady on feet and had to sit to rest after 3 min standing due to weakness and mild buckling of knees. OT ADL-Oral Care General Eval Oral Care Ability Standby Assistance Areas of Assistance Brushing Teeth Comments Oral Care Comments seated at sink due to fatigue OT ADL-Dressing General Eval Upper Body Dressing Ability Standby Assistance Lower Body Dressing Ability Standby Assistance Areas Needing Assistance Underpants/Brief,Socks Comments OT Dressing Comments pt did gown and brief change and donned non skid socks seated EOB OT ADL-Toileting General Evaluation Toileting Ability Standby Assistance Areas Needing Assistance Manage Clothing,Perform Perineal Hygiene OT ADL-Bathing Bathing Type Bathing Type Sponge Bath General Evaluation Bathing Ability Standby Assistance Areas Needing Assistance Retrieving/Setting Up Items, Wash/Dry Upper Body,Wash/Dry Perineal Area Comments OT Bathing Comments pt completed seated and standing sponge bath; pt agreed to shower tomorrow M6 OT- IP Functional Cognition Start: 06/23/19 13:50 Freq: Status: Active Protocol: Document 06/24/19 10:48 PJM (Rec: 06/24/19 12:38 PJM [id number]) Cognitive Factors Limiting Selfcare Function Cognitive Ability Attention Span Ability Capable of Focused Attention Ability to Follow Commands Able to Follow One Step Commands Safety Awareness Underestimates Need for Assistance Problem Solving Ability Needs Assist to Identify Solutions Cognitive Comments Cognitive Assessment Comments Pt has flat affect with mildly slowed speed of processing. Appears to have some decreased insight into deficits resulting from her stroke and underestimates her abilities. Decreased awareness of unsteadiness on turns and when standing at sink, and does not initiate sitting down to increase safety. OT- Vision and Hearing OT- Vision Assessment Visual Spacial Neglect Left Vision Assessment Comments Some neglect of LUE noted when pt in bed; but pt using L hand consistently as assist during grooming and dressing today wifrancisco cuing. M7 OT- IP Mobility and Balance Start: 06/23/19 13:50 Freq: Status: Active Protocol: Document 06/24/19 10:48 PJM (Rec: 06/24/19 12:38 PJ [id number]) OT- Bed Mobility Assessment Rolling Type of Rolling Roll to Right Level of Assistance Standby Assistance,Head of Bed Elevated Supine to Sit Supine to Sit Assist Standby Assistance,Head of Bed Elevated Scooting Scooting to Edge of Bed Standby Assistance OT-Transfer Assessment Sit to and From Stand Sit to and from Stand Contact Guard Assistance,1 Person Assistance Transfers Transfer Ability Contact Guard Assistance,1 Person Assistance Technique Transfer Destination Chair,Toilet Transfer Technique Stand Step Pivot Devices Transfer Assistive Devices Gait Belt,Front Wheeled Walker Comments Mobility Comments pt mildly unsteady on turns, needs min cues for FWW use in tight spaces OT- Gait Assessment Gait Gait Assistance Required: Contact Guard Assist Distance (Feet) 25 Assistive Devices Assistive Device Gait Belt,Front Wheeled Walker OT- Balance Assessment Sitting Balance and Reactions Static Sitting Balance Ability Good Dynamic Sitting Balance Ability Good Standing Balance and Reactions Static Standing Balance Ability Good Dynamic Standing Balance Ability Fair Comments Other Balance Tests/Deviations/Treatment with FWW during toileting, : grooming standing at sink and dressing; one minor LOB when standing at sink with FWW M8 OT- IP Objective Assessments Start: 06/23/19 13:50 Freq: Status: Active Protocol: Document 06/24/19 10:48 PJM (Rec: 06/24/19 12:38 PJM [id number]) OT Strength Hand 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 Strength Hand Dominance Right OT- Coordination Assessment Comments Coordination Comments pt dropped toothpaste out of L hand x1 due to decreased sensation, NO LUE ataxia noted this session; one episode of RUE tremor noted when standing at sink OT-Muscle Tone Assessment Muscle Tone WNL Yes OT Sensation Assessment Comments Summary Comments Pt has decreased lt touch in my entire L side per pt Edema Edema Absent M9 OT- IP Assessment and Plan Start: 06/23/19 13:50 Freq: Status: Active Protocol: Document 06/24/19 10:48 PJM (Rec: 06/24/19 12:38 PJM [id number]) OT Summary Assessment and Plan Potential Rehabilitation Potential Good Summary Progress Towards Goals Progressing Toward Goals Assessment Summary Pt presents with improved functional mobility and increasing independence in self care skills today. She is using L hand consistently as assist with self care with no ataxia noted, but occasional dropping of objects due to decreased sensation with LUE neglect noted, especially when pt in bed. She still fatigues easily but tolerated 40 min session with multiple rests. 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 Pt is not safe to return home alone at this time. Recommend further rehab services at d/c. Pt expresses preference for rehab at [facility] in [place] as she wants to stay close to her restorationist friends. Pt declines acute rehab services at [facility]. Goals Grooming Goal Independent Dressing Goal Independent Toileting Goal Independent Bathing Goal Standby Assistance Toilet Transfer Goal Independent Shower Transfer Goal Contact Guard Assistance Patient/Caregiver Education Goal Caregiver Independent Assisting Patient OT-Other Goals Grooming goal in standing. Pt to be able to independently do her bolus feed when nursing present. Days to Meet Goals 14 Frequency of Treatment Frequency Of Treatment Once a Day Treatment Plan OT Treatment Plan ADL Training,Functional Cognition Training,Functional Mobility,Patient/Family Education,Discharge Planning Discharge Recommendations OT Discharge Recommendations SNF Rehab,Acute Rehab Home Equipment Needs Defer to next rehab setting, pending progress
--- NOTE | 2019-06-24 10:48 | PC.NURSE ---
Addendum entered by Caridad Lopez R.N. 06/24/19 13:57: Pts NIH stroke scale 0. Pt states that the left side of her face is numb but this has been the same since being admitted to the ER. 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 She has control over her left leg and is able to lift it without any drift. Pt is up in the chair now. Once in a while she will spit up phlegm that is clear. Addendum entered by Caridad Lopez R.N. 06/24/19 13:55: Pt tolerated her second feeding well. Lens Assorter recommends that patient do 5 feedings a day instead of 4 and decrease her water flush to 250 each feeding as her NA+ is a bit low. Original Note: Assess- Pt is A&Ox3, she is pleasant but has a flat affect. Her morning tube feed was tolerated well, pt has her own food that and she has been doing a 400cc flush with her feedings. Pt is unable to take anything by mouth as she does not keep food down. 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 Up with walker and ambulating well. Pt is a bit weak but steady. Resting comfortably at this time.
--- NOTE | 2019-06-24 11:57 | DIET.PN ---
Dietary Progress Note RD f/u to address hyponatremia per hospitalist request. Pt was bolus feeding [employer] 1.0 4x/d c 400-500mL flushes each time providing 1350kcal (80% of needs) and 64g PRO (77% of needs) with 2800mL fluids (135% of needs). Discussed this with pt who agrees to update feeding schedule to [employer] 1.0 can 5x/d c 200mL flushes each feed which provides 1675kcal (100%), 80g Pro (100%), and 2500mL fluids (120% of needs). If pt feels this is too difficult, options include a more concentrated formula ([employer] 1.2) or cyclic pump feeding.
[2019-06-24 12:00] VITALS: BP 140/80; PULSE 83; RESP 16; TEMP 36.3; O2SAT 94
--- NOTE | 2019-06-24 13:30 | P.PN_ITS ---
Subjective Subjective Date Patient Seen: 06/24/19 Time Patient Seen: 09:20 Interval history: Marisol wan is a 73-year-old female with past medical history of esophageal cancer who was admitted with left-sided weakness, numbness and a left-sided facial droop. She seen for follow-up today. She is still quite anxious and scared after the event but feeling slightlt better. She has her own tube feeds which she provides, nursing staff is helping her give them. I asked her to reduce her free water because of her hyponatremia, she is also increasing her tube feeding to 5x daily to add additional protein per dietary recommendations. With physical therapy, she has some ataxia which fits with her cerebellar infarcts. PT has recommended acute rehab. Her MRI revealed acute and subacute infarcts involving the right temporal lobe, occipital lobe, thalamus and also cerebellum. Her right FABRIC SEPARATOR OPERATOR is also occluded. She has had no events on telemetry and remains in normal sinus rhythm. Her echocardiogram is unremarkable with normal systolic and diastolic function. Exam Vital Signs (past 8 hours): - 06/24/19 05:52 06/24/19 08:00 06/24/19 12:00 Temperature 98.6 F 99.2 F 97.4 F L Pulse Rate 81 88 83 Respiratory Rate 16 18 16 Blood Pressure 150/84 H 158/84 H 140/80 Pulse Oximetry 92 91 94 Oxygen Delivery Method Nasal Cannula Oxygen Flow Rate 0 Narrative Exam Narrative: GENERAL APPEARANCE: Well developed, well nourished, appears mildly anxious. SKIN: Inspection of the skin reveals no rashes, ulcerations or petechiae. HEENT: The sclerae were anicteric and conjunctivae were pink and moist. Extraocular movements were intact and pupils were equal, round with normal accommodation. External inspection of the ears and nose showed no scars, lesions, or masses. Lips, teeth, and gums showed normal mucosa. The oral mucosa, hard and soft palate, tongue and posterior pharynx were unremarkable. NECK: Supple and symmetric. There was no thyroid enlargement, and no tenderness, or masses were felt. CHEST: Normal AP diameter and normal contour without any kyphoscoliosis. LUNGS: Auscultation of the lungs revealed no wheezes, rhonchi, or rales. CARDIOVASCULAR: There was a regular rate and rhythm without any murmurs, gallops, rubs. Peripheral pulses were 2+ and symmetric. ABDOMEN: Soft and nontender with normal bowel sounds. No ascites was noted. Peg tube without erythema, induration. MUSCULOSKELETAL: There was no tenderness or effusions noted. Muscle strength and tone were normal. EXTREMITIES: No cyanosis, clubbing or edema. NEUROLOGIC: Alert and oriented x 3. she has left-sided weakness which is slightly improved today and her sensation is intact to light touch but it is diminished on the left with a sharp object. She has a mild facial asymmetry on the left which is near resolved today. Objective Labs Result Diagrams: 06/24/19 04:55 06/24/19 04:55 Labs: Laboratory Results - last 24 hr 06/24/19 06/24/19 04:55 04:55 WBC 14.5 H RBC 4.12 Hgb 11.1 L Hct 33.7 L MCV 81.9 MCH 26.9 MCHC 32.8 RDW 14.9 H Plt Count 409 H Neut % (Auto) 74.3 Lymph % (Auto) 17.4 L Stephenson % (Auto) 6.5 Eos % (Auto) 0.9 L Baso % (Auto) 0.9 Neut # (Auto) 29334 H Lymph # (Auto) 2500 Stephenson # (Auto) 900 Eos # (Auto) 100 Baso # (Auto) 100 Sodium 131 L Potassium 4.1 Chloride 96 L Carbon Dioxide 32 BUN 12 Creatinine 0.60 Estimated GFR > 60.0 BUN/Creatinine Ratio 20.0 Glucose 118 H Calcium 9.0 Magnesium 2.0 Total Bilirubin 0.6 Conjugated Bilirubin 0.0 Unconjugated Bilirubin 0.5 AST 21 ALT 14 Alkaline Phosphatase 67 Total Protein 6.4 Albumin 3.0 L Globulin 3.4 Albumin/Globulin Ratio 0.9 L Assessment & Plan Assessment & Plan narrative: Marisol Wan is a 73-year-old female with past medical history of 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 She is admitted to Medicine for an acute CVA which was confirmed on MRI. 1. CVA, acute, present on admission-her symptoms started the morning prior to admission with Left facial numbness and then the day of admission developed left-sided weakness and numbness. MRI revealed acute and subacute infarcts involving the right temporal lobe, occipital lobe, thalamus and also cerebellum. Her right FABRIC SEPARATOR OPERATOR is also occluded. Her carotid arteries had less than 50% stenosis. Given the extensive nature and multiple infarcts, I do suspect these to be embolic, however no AFib has been noted here during telemetry. -continue aspirin daily via PEG tube and initiate Lipitor 80 mg tonight. -LDL mildly elevated at 98, patient has is started on statin therapy. -TSH was unremarkable, A1c of 5.8% which indicates pre diabetes. -MR stroke as noted above. -echocardiogram was unremarkable, showing normal ejection fraction and normal diastolic dysfunction as well. -NIH stroke scale Q shift -PT and OT recommendations appreciated. Continue treatments until discharge to likely acute rehab tomorrow. -continue telemetry, if no AFib is identified I do recommend a Holter monitor placement as an outpatient. 2. Hypertension, acute on chronic, present on admission-patient has mildly elevated blood pressures which have improved since arrival to the floor. She was more hypertensive in the ED. This may be due to anxiety from her acute condition. -consider adding antihypertensive if she remains persistently above 140 systolic or 90 diastolic. -allow permissive hypertension until tomorrow morning, but treat as needed for systolics greater than 180. 3. Leukocytosis, acute, present on admission -this may be reactive secondary to above likely CVA. She also has a left retrocardiac infiltrate on chest x-ray, but no symptoms including cough or shortness of breath to indicate pneumonia. Will check a UA as well, but will can continue to monitor and recheck her CBC in the morning. During her last admission she was treated for possible aspiration with Zosyn and was discharged on oral antibiotics for her PEG tube. She does not clinically appear to have pneumonia at this time. - Leukocytosis improving, will continue to monitor. 4. Hyponatremia, chronic, present on admission -patient has chronic hyponatremia which is mild, she is asymptomatic. -continue to follow BMP - asked patient to decrease free water in her self given tube feedings. 5. History of esophageal cancer -no active treatment -Lovenox for DVT prophylaxis 6. Pre diabetes, new diagnosis -A1c as noted above 5.8% -continue education and above lifestyle modifications. 7. 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 - appreciate dietary recommendations. Code: Full, patient elects surrogate decision maker as Alejandra, patient is a [employer]. DVT: Lovenox daily Dispo: Patient is admitted under inpatient status as her stay is likely to exce ed 2 midnights. She is pending discharge to acute rehab, likely tomorrow. Quality VTE Deep Vein Thrombosis/Pulmonary Embolism Present on Admission: No
--- NOTE | 2019-06-24 14:39 | CM.DPC ---
DCP Cont: Melva from [facility] rehab came by to see patient. Patient confirmed that she wishes to stay here in this area for her skilled rehab. She was able to find out what [facility] rehab would be able to do if she were to go there. Went ahead and faxed updated dietary note to [facility], which suggests 5 times a day feeding, included original dietary note as well. P: DCP to continue to follow closely. Patient could be discharged to [facility] as long as her feeding supplies are available. Sahra Cardona RN/Cementer Helper
[2019-06-24 15:35] VITALS: BP 126/73; PULSE 79; RESP 18; TEMP 37.2; O2SAT 92
--- NOTE | 2019-06-24 16:26 | PT.IPTN ---
Current Diagnoses Cerebral infarction, unspecified (06/22/19) Physical Therapy Treatment Note M2 PT-IP Current Condition Start: 06/23/19 08:51 Freq: NEEDED Status: Active Protocol: Document 06/23/19 12:30 AW (Rec: 06/23/19 14:08 AW [id number]) Physical Therapy Current Condition Current Condition Evaluation Date 06/23/19 Treatment Diagnosis CVA, left-sided weakness, incoordination, ataxia, difficulty in walking Onset Date 06/21/19 Precautions Other Precautions Gait belt high to avoid PEG tube. Weight Bearing Status Weight Bearing Status Full Weight Bearing M3 PT-IP Subjective Start: 06/23/19 08:51 Freq: NEEDED Status: Active Protocol: Document 06/24/19 15:53 JONES (Rec: 06/24/19 16:22 JONES [id number]) Subjective Physical Therapy Visit Type Type Treatment Note Visit Start Time 15:53 Visit Stop Time 16:06 Total Visit Minutes 13 Notes Treatment supervised by ESTRELLITA Thibodeaux. Physical Therapy Visit Comments Patient Comments Pt agreeable to work with therapy. Patient Goals To be able to take care of herself Therapy Pain Assessment Pain When Pain Assessed At Rest Pain Present Pain Present Denied Pain M4 PT-IP Mobility and Gait Start: 06/23/19 08:51 Freq: NEEDED Status: Active Protocol: Document 06/24/19 15:53 JONES (Rec: 06/24/19 16:22 JONES [id number]) PT-Bed Mobility Assessment Sit to Supine Sit to Supine Contact Guard Assistance Scooting Scooting to Edge of Bed Standby Assistance PT-Transfer Assessment Sit to and From Stand Sit to and from Stand Contact Guard Assistance,1 Person Assistance,Use of Upper Extremities Equipment Transfer Assistive Device Gait Belt,Front Wheeled Walker Orthotic/Prosthetic Devices or Brace: No Transfers Transfer Destination Bed Transfer Technique Pt ambulated w/ FWW. Transfer Ability Level of Assist Contact Guard Assistance,1 Person Assistance,Use of Upper Extremities Comments Mobility Comments Pt was sitting in chair asleep upon arrival from PT. Agreeable to get into bed. Pt was SBA for scooting to edge of chair and CGA for sit<> stand from chair w/ FWW. Cues to push up from chair required . CGA for stand<>sit and sit<> sup in bed. Pt left in bed w/ all needs in reach and visitor in room. Gait Assessment Gait Gait Assistance Required: Contact Guard Assist Distance (Feet) 20 Able to Maintain Weight Bearing Status Yes During Gait Assistive Devices Assistive Device Gait Belt,Front Wheeled Walker Orthotic/Prosthetic Devices or Brace: No Gait Deviations General Gait Pattern Ataxic,Decreased Stride Length Factors Limiting Gait Function Factors Limiting Gait Function Decreased Activity Tolerance, Decreased Sensation,Decreased Strength,Incoordination,Poor Balance Comments Gait Comments Pt ambulated ~20 ft from chair on L side of bed to R side of bed, and then back to L side. Experienced some posterior LOB while ambulating and verbalized mild dizziness and weakness. Pt then continued walking to get back into bed. Min cues to reach back for bed and slowly lower. Stair Climbing Assessment Comments Stair Climbing Comments Not assessed. PT-Balance Assessment Sitting Balance and Reactions Static Sitting Balance Ability Good Dynamic Sitting Balance Ability Fair Standing Balance and Reactions Static Standing Balance Ability Fair Dynamic Standing Balance Ability Poor Device Used FWW M5 PT-IP Objective Assessments Start: 06/23/19 08:51 Freq: NEEDED Status: Active Protocol: Document 06/23/19 12:30 AW (Rec: 06/23/19 14:08 AW [id number]) Orientation Orientation/Cognition Level of Alertness Alert Orientation Name,Year,Place,Situation Language Function Ability No Deficits Noted Safety Awareness Understands Safety Issues Memory Description No Deficits Noted Comments PT noted signs of left neglect . See OT note for cognitive assessment. Gross Range of Motion Lower Extremity ROM Assessment Left Impaired Strength Lower Extremity Strength Assessment Bilaterally Impaired Hip L 4-/5; R 4/5 Knee L 4-/5; R 4+/5 Ankle L 4+/5; R 4/5 Coordination Assessment Gross Coordination Gross Coordination Impaired Assessment Finger to Nose Test Moderate Impairment Heel on Coello Test Moderate Impairment Coordination Comments Pt unable to touch her nose with left index finger with eyes closed. On heel/coello testing, pt unable to maintain contact of left heel on right coello through movement. Sensation Assessment Sensation Gross Sensation Left UE Impaired,Left LE Impaired Light Touch Impaired Comments Sensation Comments Dull light touch sensation in no identifiable pattern on the left side. Did not assess sharp/dull sensation or proprioception. M6 PT-IP Treatment Start: 06/23/19 08:51 Freq: NEEDED Status: Active Protocol: Document 06/24/19 15:53 JONES (Rec: 06/24/19 16:22 JONES [id number]) Physical Therapy Treatment Education Education Provided Safety Other Treatments Other Treatment Performed Pt repositioned in bed with waffle cushion in place. M7 PT-IP Assessment and Plan Start: 06/23/19 08:51 Freq: NEEDED Status: Active Protocol: Document 06/24/19 15:53 JONES (Rec: 06/24/19 16:22 JONES [id number]) PT Summary Assessment and Plan Potential Rehabilitation Potential Good Status of Condition at Evaluation Evolving Summary Impairments ROM,Strength,Balance, Coordination,Sensation,Bed Mobility,Transfers,Gait, Activity Tolerance Assessment Summary Pt was able to stand from chair and ambulate ~20 ft w/ FWW and CGA. Posterior LOB and c/o mild dizziness and weakness during ambulation. Pt offers that she feels very tired. Pt walked to other side of bed and was CGA for stand< >sit and sit<>sup. Pt left in bed w/ visitor in room. Goals Bed Mobility Goal Independent Transfer Goal Standby Assistance,Front Wheeled Walker Gait Goal Standby Assistance,Front Wheel Walker Gait Distance 200 Other Goals up/down 5 steps without railing using least restrictive assistive device CGA Days to Meet Goals 10 Frequency of Treatment Frequency Of Treatment Twice a Day Treatment Plan Physical Therapy Treatment Plan Bed Mobility Training,Transfer Training,Gait Training, Therapeutic Exercise,Balance Retraining,Discharge Planning, Neuromuscular Re-ed, Coordination Retraining Other Recommendations and Next Treatment gait training, coordination Focus training Recommendations To Nursing Amount of Assist Needed 1 Person Assist Discharge Recommendations PT Discharge Recommendations SNF Rehab,Acute Rehab Other Discharge Recommendations subacute rehab: acute vs SNF Equipment Needed for Home Before defer to rehab setting Discharge Reviewed by Morelia Braden PTA
[2019-06-24] MEDS: SODIUM CHLORIDE 0.9% FLUSH 10 ML IV ×2 (17:50→23:48)
[2019-06-24] MEDS: ONDANSETRON 4 MG/2 ML INJ IV (17:50)
[2019-06-24] MEDS: ATORVASTATIN 20 MG TABLET 80 MG PO (20:21)
[2019-06-24 21:12] VITALS: BP 151/76; PULSE 99; RESP 20; TEMP 37
[2019-06-25] VITALS: BP 149/68; PULSE 85; RESP 22; TEMP 36.9; O2SAT 91
[2019-06-25] MEDS: ONDANSETRON 4 MG/2 ML INJ 8 MG IV ×2 (02:21→09:49)
[2019-06-25] MEDS: SODIUM CHLORIDE 0.9% FLUSH 10 ML IV ×3 (02:21→12:56)
[2019-06-25] MEDS: ACETAMINOPHEN 325 MG TABLET 650 MG PO (02:30)
--- NOTE | 2019-06-25 05:31 | PC.NURSE ---
Addendum entered by Leilani Payton R.N. 06/25/19 06:27: Pt able to tolerate 150 formula per PEG, 60cc water. Suppository given, MOM given. 400cc light chery UOP. IV reglan, nausea improved this morning. Await resolve of constipation. Original Note: Pt with frequent dry heaves and eventual emesis. Total emesis out overnight 200cc. Appears watery, brown. Pt given IV antiemetics per order. When nausea/vomiting not relieved, notified provider and zofran dose increased. On aspiration precautions. Provider also order qHS melatonin which pt declined at it gives her a hangover. Pt consented to tylenol at ~0300 and appeared to be able to rest without further nausea. Planned to given 1/5 tube feed this morning with 200cc free water, pt declined stating, I just can't handle it, it just makes me too distended. Provider notified. Abd soft, non tender. Pt noted to be passing eructations. On tele in NSR w/ occ PVCs. Monitoring for AFib. NIH score of 2. Last BM 06/20 pt stated., not unusual. Will offer PRN stool meds.
[2019-06-25 05:50] VITALS: BP 141/78; PULSE 79; RESP 18; TEMP 37; O2SAT 91
[2019-06-25] MEDS: MAGNESIUM HYDROXIDE 30 ML UDC PO (06:04)
[2019-06-25] MEDS: METOCLOPRAMIDE 10 MG/2 ML INJ IV (06:04)
[2019-06-25] MEDS: BISACODYL 10 MG SUPP PR (06:04)
[2019-06-25 06:11] LABS: Add Manual Diff / Slide Review NO; Basophils Absolute Auto 200 /uL (0-100); Basophils Percent Auto 1.3 % (0-2); Eosinophils Absolute Auto 100 /uL (0-450); Hemoglobin 10.8 g/dL (12.0-16.0); Lymphocytes Absolute Auto 2700 /uL (1100-4500); Lymphocytes Percent Auto 20.8 % (25-40); Mean Corpuscular HGB Conc 33.7 % (30-36); Mean Corpuscular Hemoglobin 27.4 PG (26-34); Mean Corpuscular Volume 81.2 fL (80-100); Monocytes Absolute Auto 1000 /uL (0-900); Monocytes Percent Auto 7.5 % (3-14); Neutrophils Absolute Auto 8800 /uL (1500-7000); Neutrophils Percent Auto 69.4 % (50-75); Platelet Count 397 X10^3/uL (150-400); Red Blood Cell Count 3.94 X10^6/uL (4.0-5.2); Red Cell Distribution Width 14.6 % (11.6-14.8); White Blood Cell Count 12.7 X10^3/uL (4.5-11.0)
[2019-06-25 06:18] LABS: Alanine Aminotransferase 14 IU/L (<35); Alkaline Phosphatase 65 U/L (38-126); Aspartate Aminotransferase 22 IU/L (14-36); BUN Creatinine Ratio 23.3 (6-22); Bilirubin Total 0.6 mg/dL (0.2-1.3); Bilirubin Unconjugated 0.5 mg/dL (0.0-1.1); Blood Urea Nitrogen 14 mg/dL (7-17); Calcium 8.8 mg/dL (8.4-10.2); Carbon Dioxide 31 mmol/L (22-32); Chloride 97 mmol/L (98-107); Estimated Glomerular Filt Rate > 60.0 mL/min (>60); Globulin 3.1 g/dL (1.7-4.1); Glucose 103 mg/dL (80-110); HEMOLYSIS < 15 (0-50); Potassium 3.9 mmol/L (3.4-5.1); Sodium 133 mmol/L (137-145); Total Protein 6.1 g/dL (6.3-8.2)
--- NOTE | 2019-06-25 09:35 | PC.NURSE ---
Addendum entered by Pennie Puente R.N. 06/25/19 14:15: GI - discussed tube feed w/pt, prefers to admin w/o an anti-emetic this time, no residual,flushed with water, admin via bolus 325ml vLine feed, thin w/some water and finish with a water flush for a total 200ml water. Original Note: AM NOTE - let pt sleep am, awakens easily, discussed plan to try tube feed at 10am, discussed admin zofran before, pt is a little reluctant to add things to my body but willing to try to reduce the n/v that has been associated with the feed, no complaints pain.
[2019-06-25 09:45] VITALS: BP 132/76; PULSE 74; RESP 12; TEMP 37.1; O2SAT 94
[2019-06-25] MEDS: ENOXAPARIN 40 MG/0.4 ML SYRINGE SUBCUT (09:49)
[2019-06-25] MEDS: ASPIRIN 81 MG CHEW TAB PO (09:49)
--- NOTE | 2019-06-25 09:58 | PT-IP ANOTE ---
Tried to see patient at 0955 but nursing stated she was starting a tube feed, will try to check in later, but may have to wait to PM.
--- NOTE | 2019-06-25 11:20 | PT.IPTN ---
Current Diagnoses Cerebral infarction, unspecified (06/22/19) Physical Therapy Treatment Note M2 PT-IP Current Condition Start: 06/23/19 08:51 Freq: NEEDED Status: Active Protocol: Document 06/23/19 12:30 AW (Rec: 06/23/19 14:08 AW [id number]) Physical Therapy Current Condition Current Condition Evaluation Date 06/23/19 Treatment Diagnosis CVA, left-sided weakness, incoordination, ataxia, difficulty in walking Onset Date 06/21/19 Precautions Other Precautions Gait belt high to avoid PEG tube. Weight Bearing Status Weight Bearing Status Full Weight Bearing M3 PT-IP Subjective Start: 06/23/19 08:51 Freq: NEEDED Status: Active Protocol: Document 06/25/19 10:45 AMB (Rec: 06/25/19 11:20 AMB [id number]) Subjective Physical Therapy Visit Type Type Treatment Note Visit Start Time 10:45 Visit Stop Time 11:05 Total Visit Minutes 20 Physical Therapy Visit Comments Patient Comments Pt says she is ok with taking a few laps around the bed Therapy Pain Assessment Pain When Pain Assessed At Rest M4 PT-IP Mobility and Gait Start: 06/23/19 08:51 Freq: NEEDED Status: Active Protocol: Document 06/25/19 10:45 AMB (Rec: 06/25/19 11:20 AMB [id number]) PT-Bed Mobility Assessment Sit to Supine Sit to Supine Contact Guard Assistance Scooting Scooting to Edge of Bed Standby Assistance PT-Transfer Assessment Sit to and From Stand Sit to and from Stand Contact Guard Assistance,1 Person Assistance,Use of Upper Extremities Equipment Transfer Assistive Device Gait Belt,Front Wheeled Walker Orthotic/Prosthetic Devices or Brace: No Transfers Transfer Destination Bed Transfer Technique Pt ambulated w/ FWW. Transfer Ability Level of Assist Contact Guard Assistance,1 Person Assistance,Use of Upper Extremities Comments Mobility Comments Pt in bed at beginning and end of session. Ambulated with FWW/ gait belt with vc for posture, safety. Steppage gait continues. Gait Assessment Gait Gait Assistance Required: Contact Guard Assist Distance (Feet) 40 Able to Maintain Weight Bearing Status Yes During Gait Gait Deviations General Gait Pattern Decreased Stride Length Factors Limiting Gait Function Factors Limiting Gait Function Decreased Activity Tolerance, Decreased Sensation,Decreased Strength,Incoordination,Poor Balance Comments Gait Comments Pt ambulated 40 feet with FWW in laps around the bed. Needed 3 standing rest breaks and cueing for attention to L side, but no LOB today. M5 PT-IP Objective Assessments Start: 06/23/19 08:51 Freq: NEEDED Status: Active Protocol: Document 06/23/19 12:30 AW (Rec: 06/23/19 14:08 AW [id number]) Orientation Orientation/Cognition Level of Alertness Alert Orientation Name,Year,Place,Situation Language Function Ability No Deficits Noted Safety Awareness Understands Safety Issues Memory Description No Deficits Noted Comments PT noted signs of left neglect . See OT note for cognitive assessment. Gross Range of Motion Lower Extremity ROM Assessment Left Impaired Strength Lower Extremity Strength Assessment Bilaterally Impaired Hip L 4-/5; R 4/5 Knee L 4-/5; R 4+/5 Ankle L 4+/5; R 4/5 Coordination Assessment Gross Coordination Gross Coordination Impaired Assessment Finger to Nose Test Moderate Impairment Heel on Coello Test Moderate Impairment Coordination Comments Pt unable to touch her nose with left index finger with eyes closed. On heel/coello testing, pt unable to maintain contact of left heel on right coello through movement. Sensation Assessment Sensation Gross Sensation Left UE Impaired,Left LE Impaired Light Touch Impaired Comments Sensation Comments Dull light touch sensation in no identifiable pattern on the left side. Did not assess sharp/dull sensation or proprioception. M6 PT-IP Treatment Start: 06/23/19 08:51 Freq: NEEDED Status: Active Protocol: Document 06/25/19 10:45 AMB (Rec: 06/25/19 11:20 AMB [id number]) Physical Therapy Treatment Other Treatments Other Treatment Performed Pt repositioned in bed with waffle cushion and call light in place with bed alarm on. M7 PT-IP Assessment and Plan Start: 06/23/19 08:51 Freq: NEEDED Status: Active Protocol: Document 06/25/19 10:45 AMB (Rec: 06/25/19 11:20 AMB [id number]) PT Summary Assessment and Plan Summary Assessment Summary Pt moved from sit to stand and ambulated 40 feet in laps around the bed. Goals Bed Mobility Goal Independent Transfer Goal Standby Assistance,Front Wheeled Walker Gait Goal Standby Assistance,Front Wheel Walker Gait Distance 200 Other Goals up/down 5 steps without railing using least restrictive assistive device CGA Days to Meet Goals 10 Frequency of Treatment Frequency Of Treatment Twice a Day Treatment Plan Physical Therapy Treatment Plan Bed Mobility Training,Transfer Training,Gait Training, Therapeutic Exercise,Balance Retraining,Discharge Planning, Neuromuscular Re-ed, Coordination Retraining Other Recommendations and Next Treatment gait training, coordination Focus training- could consider gait training in hallways for short distances if pt willing Recommendations To Nursing Amount of Assist Needed 1 Person Assist Discharge Recommendations PT Discharge Recommendations SNF Rehab,Acute Rehab Other Discharge Recommendations subacute rehab: acute vs SNF Equipment Needed for Home Before defer to rehab setting Discharge
--- NOTE | 2019-06-25 11:42 | OT.IP.TRT ---
Current Diagnoses Cerebral infarction, unspecified (06/22/19) Occupational Therapy Treatment Note M3 OT- IP Subjective and Pain Start: 06/23/19 13:50 Freq: Status: Active Protocol: Document 06/25/19 11:42 PJM (Rec: 06/25/19 17:28 PJ [id number]) OT- Subjective Occupational Therapy Visit Type Type Treatment Note Visit Start Time 11:18 Visit Stop Time 11:42 Total Visit Minutes 26 Notes Pt requesting to shower, then too fatigued to get up to bathroom. Occupational Therapy Visit Comments Patient Comments I had a terrible night last night. I was throwing up. Patient/Caregiver Goals to get strong enough to go home and see her dog OT Pain Assessment Pain When Pain Assessed After Treatment Pain Present Pain Present Denied Pain M4 OT- IP ADL's Start: 06/23/19 13:50 Freq: Status: Active Protocol: Document 06/25/19 11:42 PJM (Rec: 06/25/19 17:28 PJ [id number]) OT [id number] General Evaluation Diet Level for Self-Feeding NPO, PEG tube OT ADL-Dressing General Eval Lower Body Dressing Ability Standby Assistance Areas Needing Assistance Retrieving/Set-up of Clothing, Pants/Shorts Comments OT Dressing Comments to don her own PJ pants in bed OT ADL-Bathing Comments OT Bathing Comments pt too fatigued to complete shower today M6 OT- IP Functional Cognition Start: 06/23/19 13:50 Freq: Status: Active Protocol: Document 06/25/19 11:42 PJM (Rec: 06/25/19 17:28 PJ [id number]) Cognitive Factors Limiting Selfcare Function Cognitive Comments Cognitive Assessment Comments Pt presents with flat affect and mildly slowed speed of processing. M7 OT- IP Mobility and Balance Start: 06/23/19 13:50 Freq: Status: Active Protocol: Document 06/25/19 11:42 PJM (Rec: 06/25/19 17:28 PJ [id number]) OT- Bed Mobility Assessment Rolling Level of Assistance Independent Supine to Sit Supine to Sit Assist Standby Assistance Sit to Supine Sit to Supine Assist Minimal Assistance Scooting Scooting to Edge of Bed Standby Assistance Scooting Up and Down in Bed Standby Assistance OT-Transfer Assessment Comments Mobility Comments Pt requesting shower, then c/o dizziness when sitting EOB. BP [id number] HR 76, BP sitting EOB 113/64 HR 75. Pt declined to proceed to shower due to fatigue I just want to sleep now. OT- Gait Assessment Comments Gait Ability Comments did not occur OT- Balance Assessment Sitting Balance and Reactions Static Sitting Balance Ability Good Dynamic Sitting Balance Ability Fair M9 OT- IP Assessment and Plan Start: 06/23/19 13:50 Freq: Status: Active Protocol: Document 06/25/19 11:42 PJ (Rec: 06/25/19 17:28 PJM [id number]) OT Summary Assessment and Plan Summary OT Impairments Strength,Coordination, Functional Cognition, Functional Mobility,Grooming, Dressing,Toileting,Bathing, Toilet Transfers,Shower Transfers Progress Towards Goals Slow Progress due to Medical Issues,Slow Progress due to Activity Tolerance Assessment Summary Pt's participation limited by fatigue from little sleep last night per pt and dizziness when sitting EOB despite stable BP's. Pt unable/ unwilling to proceed with shower today. Per chart notes, pt will d/c today to [facility] for further rehab services. Frequency of Treatment Frequency Of Treatment Discharge Discharge Recommendations OT Discharge Recommendations SNF Rehab Home Equipment Needs to be determined pending progress at [facility]
[2019-06-25 12:00] VITALS: BP 114/66; PULSE 75; RESP 13; TEMP 37.3; O2SAT 93
--- NOTE | 2019-06-25 13:23 | PM.DS.1 ---
History of Present Illness History of Present Illness Chief complaint: left side numbness Narrative: Marisol Vasquez is a 73-year-old female with past medical history of 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 She initially presented yesterday morning with complaints of left-sided facial numbness and was discharged home. She woke up this morning unable to move her left hand and left leg, and she had a notable left-sided facial droop as well. She also complains of decreased sensation on her left side. She denies any recent chest pains or palpitations. She has had no fevers or chills recently. She denies cough or sputum production. She further denies shortness of breath, lower extremity edema, abdominal pain, vomiting. She did have an episode of headache and blurry vision a few days ago that resolved, and she has not had the symptoms since. She is also no longer taking methadone her oxycodone, as they did not seem to help her and she just felt off taking medications. In the ED her vital signs were notable for mild hypertension, and she did have an O2 of 87% on room air. Her initial NIH stroke scale was 5 according to ED documentation. She had a CT head which was negative for intracranial hemorrhage and did not show any infarcts. Her chest x-ray is read as a left retrocardiac infiltrate, left-sided pleural effusion. EKG shows normal sinus rhythm. Labs are notable for a leukocytosis of 15.2 and platelet count of 434, sodium of 132 (stable from prior labs), glucose of 160. She was admitted to medicine for an acute CVA. Discharge Providers Provider Date of admission: 06/22/19 16:13 Discharge Date: 06/25/19 Consults: 06/22/19 18:07 Consult to Dietitian, Adult Routine Comment: Reason For Exam: esophageal CA, tube feeding Consult to Discharge Planning Routine Comment: Consult to Occupational Therapy Evaluate & Treat Comment: Physician Instructions: Evaluate and treat Consult to Physical Therapy Evaluate & Treat Comment: Physician Instructions: Evaluate and Treat Discharge provider: Eulalio Call DO Summary Hospital Course Discharge Diagnosis: 1. CVA, acute, present on admission- 2. Hypertension, acute on chronic, present on admission, improved 3. Leukocytosis, acute, present on admission, improved 4. Hyponatremia, chronic, present on admission, improved 5. History of esophageal cancer 6. Pre diabetes, new diagnosis 7. Acute on Chronic Severe protein calorie malnutrition Hospital Course: Marisol Vasquez is a 73-year-old female with past medical history of 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 She is admitted to Medicine for an acute CVA which was confirmed on MRI. She was also treated for a likely aspiration pneumonia. She has frequent nausea from her tube feeds which is improved with decreased volume. 1. CVA, acute, present on admission-her symptoms started the morning prior to admission with Left facial numbness and then the day of admission developed left-sided weakness and numbness. MRI revealed acute and subacute infarcts involving the right temporal lobe, occipital lobe, thalamus and also cerebellum. Her right RIGGER is also occluded. Her carotid arteries had less than 50% stenosis. Given the extensive nature and multiple infarcts, I do suspect these to be embolic, however no AFib has been noted here during telemetry. -continue aspirin daily via PEG tube as well as Lipitor 80 mg nightly. -LDL mildly elevated at 98, patient has started on statin therapy. -TSH was unremarkable, A1c of 5.8% which indicates pre diabetes. -MR stroke as noted above. -echocardiogram was unremarkable, showing normal ejection fraction and normal diastolic dysfunction as well. -continue physical therapy -I do recommend a Holter monitor placement as an outpatient given the that I do suspect AFib. Patient should follow-up with her primary care provider in the next 1-2 weeks. 2. Hypertension, acute on chronic, present on admission-patient has mildly elevated blood pressures which have improved since arrival to the floor. She was more hypertensive in the ED. This may be due to anxiety from her acute condition. -consider adding antihypertensive if she remains persistently above 140 systolic or 90 diastolic. However her blood pressure was improved prior to discharge and no medications were necessary. 3. Leukocytosis, acute, present on admission -this may be reactive secondary to above likely CVA. She also has a left retrocardiac infiltrate on chest x-ray, but no symptoms including cough or shortness of breath to indicate pneumonia. Her leukocytosis did improve without antibiotics so I do suspect this to be secondary to her acute event. 4. Hyponatremia, chronic, present on admission -patient has chronic hyponatremia which is mild, she is asymptomatic. -would recheck her BMP in approximately 1 week, she has been stable in asymptomatic from her hyponatremia. -I suspect her hyponatremia is due to excess free water in her on tube feeds. She did show improvement with her sodium when she decreased her free water feeds. 5. History of esophageal cancer -no active treatment -Lovenox for DVT prophylaxis 6. Pre diabetes, new diagnosis -A1c as noted above 5.8% -continue education and above lifestyle modifications. 7. Acute on Chronic Severe PCM r/t progression of esophageal cancer c new possible TIA aeb 28% wt loss in 9mo (severe), BMI 20.6 (severe for age), new left sided weakness reducing effective independent bolus feeds. -I have asked patient to order more concentrated tube feedings given her nausea and vomiting with high volume feedings. She is currently on a 1 nas/ mL formula which can be increased. She is currently on 5 bolus feedings a day, this can be continued. Once known the new caloric density of her tube feedings, she should continue the same number of calories per feeding but with the decreased volume. Code: Full, patient elects surrogate decision maker as Alejandra, patient is a Muslim. Dispo: Discharge to [facility] rehab. Time Spent with Patient Time spent: Greater than 30 minutes Exam Vital Signs (past 8 hours): - 06/25/19 05:50 06/25/19 09:45 06/25/19 12:00 Temperature 98.6 F 98.7 F 99.1 F Pulse Rate 79 74 75 Respiratory Rate 18 12 13 Blood Pressure 141/78 H 132/76 114/66 Pulse Oximetry 91 94 93 Oxygen Delivery Method Room Air Oxygen Flow Rate 0 Narrative Exam Narrative: GENERAL APPEARANCE: Well developed, well nourished, appears mildly anxious. SKIN: Inspection of the skin reveals no rashes, ulcerations or petechiae. HEENT: The sclerae were anicteric and conjunctivae were pink and moist. Extraocular movements were intact and pupils were equal, round with normal accommodation. External inspection of the ears and nose showed no scars, lesions, or masses. Lips, teeth, and gums showed normal mucosa. The oral mucosa, hard and soft palate, tongue and posterior pharynx were unremarkable. NECK: Supple and symmetric. There was no thyroid enlargement, and no tenderness, or masses were felt. CHEST: Normal AP diameter and normal contour without any kyphoscoliosis. LUNGS: Auscultation of the lungs revealed no wheezes, rhonchi, or rales. CARDIOVASCULAR: There was a regular rate and rhythm without any murmurs, gallops, rubs. Peripheral pulses were 2+ and symmetric. ABDOMEN: Soft and nontender with normal bowel sounds. No ascites was noted. Peg tube without erythema, induration. MUSCULOSKELETAL: There was no tenderness or effusions noted. Muscle strength and tone were normal. EXTREMITIES: No cyanosis, clubbing or edema. NEUROLOGIC: Alert and oriented x 3. she has left-sided weakness which is slightly improved today and her sensation is intact to light touch but it is diminished on the left with a sharp object. She has a mild facial asymmetry on the left which is near resolved today. Objective Labs Result Diagrams: 06/25/19 05:45 06/25/19 05:45 Labs: Laboratory Results - last 24 hr 06/25/19 06/25/19 05:45 05:45 WBC 12.7 H RBC 3.94 L Hgb 10.8 L Hct 32.0 L MCV 81.2 MCH 27.4 MCHC 33.7 RDW 14.6 Plt Count 397 Neut % (Auto) 69.4 Lymph % (Auto) 20.8 L [place] % (Auto) 7.5 Eos % (Auto) 1.0 L Baso % (Auto) 1.3 Neut # (Auto) 8800 H Lymph # (Auto) 2700 [place] # (Auto) 1000 H Eos # (Auto) 100 Baso # (Auto) 200 H Sodium 133 L Potassium 3.9 Chloride 97 L Carbon Dioxide 31 BUN 14 Creatinine 0.60 Estimated GFR > 60.0 BUN/Creatinine Ratio 23.3 H Glucose 103 Calcium 8.8 Magnesium 2.0 Total Bilirubin 0.6 Conjugated Bilirubin 0.0 Unconjugated Bilirubin 0.5 AST 22 ALT 14 Alkaline Phosphatase 65 Total Protein 6.1 L Albumin 3.0 L Globulin 3.1 Albumin/Globulin Ratio 1.0 Discharge Plan Discharge Plan Patient Disposition: SNF Transfer to: [facility] Discharge comment: You were admitted to the hospital with an acute stroke. I do suspect this was due to atrial fibrillation, however your ultrasound was normal and this was not seen on monitoring here. I do recommend that you follow-up with your primary care provider to see if you can get a heart monitor to look for atrial fibrillation. You were started on aspirin and a statin medication which you should continue through your PEG tube. Discharge orders & Medications Prescriptions: New acetaminophen 160 mg/5 mL liquid 640 mg PO Q6H PRN (Reason: fever or pain) Qty: 120 RF: 0 melatonin 3 mg Tablet 6 mg PO BEDTIME 30 Days Qty: 60 RF: 0 aspirin 81 mg Tablet,Chewable 81 mg PO DAILY 30 Days Qty: 30 RF: 0 atorvastatin [Lipitor] 80 mg tablet 80 mg PO BEDTIME 30 Days Qty: 30 RF: 0 Continued docusate sodium 50 mg/5 mL Liquid 100 mg PO BID Qty: 30 RF: 0 polyethylene glycol 3350 17 gram Powder In Packet 17 gram PO DAILY Qty: 30 RF: 0 bisacodyl 10 mg Suppository 10 mg [place] DAILY PRN (Reason: Constipation) Qty: 10 RF: 0 Bacid 1 billion cell- 250 mg Tablet 1 ea PO BIDWM Qty: 30 RF: 0 ondansetron 4 mg tablet,disintegrating 4 mg PO Q6H PRN (Reason: nausea and vomiting) Qty: 14 RF: 0 Discontinued methadone [Methadone Intensol] 10 mg/mL Concentrate 4 mg PO BID Qty: 30 RF: 0 oxycodone 5 mg/5 mL Solution 5 mg feeding tube Q2-4H PRN (Reason: Pain, Moderate) Qty: 15 RF: 0 Discharge Health Status Health Concerns: Stroke Possibla atrial fibrillation (not seen while inpatient) Diet/Activity/Treatments Diet: Diet as Tolerated and Tube Feeding Diet comment: Patient purchases her own tube feedings, given 5 times daily Activity: As tolerated Special Rehabilitation Services Reason for rehabilitation: Therapy following stroke Rehab type: Physical therapy Quality Stroke Contraindication Not Initiating IV-Tpa: Not indicated (Symptoms outside of tPA window.) Rehab Services Assessed: Rehabilitation therapy VTE Deep Vein Thrombosis/Pulmonary Embolism Present on Admission: No
--- NOTE | 2019-06-25 14:06 | CM.DPC ---
DCP Cont: Awaiting for discharge orders. Discussed patient at team rounds, and is in agreement that patient is ready for discharge today. Updated Gretel at [facility]. She went ahead and set up a time of picker packer at 1530. Have updated patient, and let her know that she can bring her feeding supplies. Updated Dr. Call on time of picker packer. He completed discharge orders. Feeding tube instructions are on discharge orders. Had him sign medication list, and nurse, Pennie aware of time of discharge. Gretel stated that she has ordered supplies for feeding based on dietary note. PASSR completed. Faxed over to facility, along with signed med list, discharge summary, and dietary notes. P: Patient is to be discharged to [facility] today. evaporator supervisor time is 1530. Sahra Cardona RN/Book Publisher
--- NOTE | 2019-06-25 16:32 | PC.NURSE ---
Discharge NOte- Patient left via wheelchair to [facility] with staff from facility at 1525. Discharge packet given to facility staff. All personal belongings sent with patient.
== END 2019-06-25 15:25 | DRG 64 ==
LOC: ED 15:05 → AC 16:16
PROVIDERS: Admitting Provider Internal Medicine; Emergency Provider Emergency Medicine; Visit Provider Internal Medicine
DX: I63.511 Cerebral infarction due to unspecified occlusion or stenosis of right middle cerebral artery (principal); E43 Unspecified severe protein-calorie malnutrition; G81.94 Hemiplegia, unspecified affecting left nondominant side; C15.9 Malignant neoplasm of esophagus, unspecified; E87.1 Hypo-osmolality and hyponatremia; I63.541 Cerebral infarction due to unspecified occlusion or stenosis of right cerebellar artery; R29.705 NIHSS score 5; Z93.1 Gastrostomy status; Z68.21 Body mass index [BMI] 21.0-21.9, adult; Z87.891 Personal history of nicotine dependence; I10 Essential (primary) hypertension; R73.03 Prediabetes; R20.2 Paresthesia of skin; F41.9 Anxiety disorder, unspecified; T50.905A Adverse effect of unspecified drugs, medicaments and biological substances, initial encounter
CPT/HCPCS: 36415; 70450; 70548; 70553; 71045; 80048; 80053; 80061; 80076; 81001; 81003; 83036; 83735; 84443; 85025; 85610; 85730; 93005; 93010; 93306; 94760; 96361; 96374; 96375; 96376; 97110; 97116; 97163; 97165; 97530; 97535; 99283; 99285; J1650; J2405; J2765

== ENCOUNTER 2019-06-30 08:22 | Emergency (ER) | payer MEDICARE, OTHER, SELFPAY ==
[2019-06-22 17:02] VITALS: BMI 20.5
[2019-06-30] VITALS (8 sets, daily range): BP systolic 118–134; BP diastolic 66–73; PULSE 75–90; RESP 14–15; TEMP 36.3; O2SAT 96–100; BMI 19.7
--- NOTE | 2019-06-30 08:30 | DI.RAD.S_ITS ---
PROCEDURE: XR ABDOMEN MIN 2V INDICATIONS: vomiting, hematemesis TECHNIQUE: 2 views of the abdomen were acquired. COMPARISON: None. FINDINGS: Surgical changes and devices: Percutaneous gastrostomy. Bowel: No pneumoperitoneum. Moderate to large amount of colonic stool. The bowel gas pattern is otherwise normal. Soft tissues: No masses; visualized solid organ contours appear normal in size. No suspicious abdominal calcifications. Bones: No suspicious bony abnormalities. IMPRESSION: No acute process. Moderate to large amount of colonic stool. Dictated by: Shirley Garcia M.D. on 06/30/2019 at 8:48 Approved by: Shirley Garcia M.D. on 06/30/2019 at 8:50
--- NOTE | 2019-06-30 08:33 | PC.NURSE ---
with peg tube.
[2019-06-30] MEDS: PANTOPRAZOLE 40 MG VIAL IV (08:39)
[2019-06-30 08:45] LABS: Add Manual Diff / Slide Review NO; Basophils Absolute Auto 100 /uL (0-100); Basophils Percent Auto 0.9 % (0-2); Eosinophils Absolute Auto 100 /uL (0-450); Eosinophils Percent Auto 0.7 % (2-4); Hematocrit 31.8 % (36-46); Hemoglobin 10.7 g/dL (12.0-16.0); Lymphocytes Absolute Auto 1600 /uL (1100-4500); Mean Corpuscular HGB Conc 33.5 % (30-36); Mean Corpuscular Hemoglobin 27.3 PG (26-34); Mean Corpuscular Volume 81.6 fL (80-100); Monocytes Absolute Auto 1000 /uL (0-900); Monocytes Percent Auto 9.2 % (3-14); Neutrophils Absolute Auto 8500 /uL (1500-7000); Neutrophils Percent Auto 75.2 % (50-75); Platelet Count 384 X10^3/uL (150-400); White Blood Cell Count 11.3 X10^3/uL (4.5-11.0)
--- NOTE | 2019-06-30 08:46 | ED_ITS ---
HPI - Nausea/Vomiting/Diarrhea General Chief complaint: Nausea/Vomiting/Diarrhea Stated complaint: Vomiting Time Seen by Provider: 06/30/19 08:30 Source: EMS Mode of arrival: EMS Limitations: no limitations History of Present Illness HPI Narrative: 73-year-old female former smoker with history of recent stroke, esophageal cancer with PEG tube [facility] for evaluation of frequent vomiting with bloody emesis and occasional clots. She feels a bit dizzy and lightheaded. She denies any coffee-ground emesis. She denies any black, dark and tarry stools. She is had no fever or chills. She takes no blood thinners, only aspirin. She hasn't had an endoscopy and about 6 or 7 months. She is not receiving any treatment for cancer. MD complaint: vomiting Onset (ago): day(s) Description of Vomiting: food contents and blood-streaked Description of Diarrhea: none Associated Abdominal Pain: No Severity: mild Relieving factors: none Exacerbating factors: none Related Data Home Medications Medication Instructions Recorded Confirmed Bacid 1 ea PO BIDWM 06/30/19 06/30/19 atorvastatin [Lipitor] 80 mg FEEDING TUBE BEDTIME 06/30/19 06/30/19 docusate sodium 100 mg FEEDING TUBE BID 06/30/19 06/30/19 hydralazine 10 mg FEEDING TUBE QID 06/30/19 06/30/19 melatonin 6 mg FEEDING TUBE BEDTIME 06/30/19 06/30/19 polyethylene glycol 3350 17 gram FEEDING TUBE DAILY 06/30/19 06/30/19 Previous Rx's Medication Instructions Recorded bisacodyl 10 mg AL DAILY PRN #10 ea 06/15/19 ondansetron 4 mg PO Q6H PRN #14 tab 06/21/19 acetaminophen 640 mg PO Q6H PRN #120 ml 06/25/19 aspirin 81 mg PO DAILY 30 Days #30 tab 06/25/19 Allergies Allergy/AdvReac Type Severity Reaction Status Date / Time codeine [CODEINE] Allergy Mild ITCHING Verified 06/30/19 08:29 meperidine [MEPERIDINE] AdvReac Intermediate Vomiting Verified 06/30/19 08:29 Review of Systems Constitutional Constitutional: Denies chills, Denies fatigue, Denies fever(s), Denies frequent falls, Denies lethargy and Denies weakness Eyes Eyes: Denies change in vision, Denies eye discharge, Denies irritation and Denies loss of vision ENT Ears, Nose, Mouth, and Throat: Denies change in voice, Denies dizziness, Denies neck pain, Denies sore throat and Denies throat swelling Cardiovascular Cardiovascular: Denies chest pain, Denies irregular heart rhythm, Denies lightheadedness, Denies palpitations, Denies dyspnea, Denies dyspnea on exertion and Denies orthopnea Respiratory Respiratory: Denies cough, Denies dyspnea, Denies dyspnea on exertion and Denies wheezing Gastrointestinal Gastrointestinal: Denies abdominal pain, Reports hematochezia, Denies change in bowel habits, Denies diarrhea, Reports nausea and Reports vomiting Genitourinary Genitourinary: Denies hematuria, Denies flank pain, Denies urinary incontinence and Denies urinary urgency Musculoskeletal Musculoskeletal: Denies back pain, Denies muscle weakness, Denies neck pain, Denies numbness and Denies tingling Integumentary/Breasts Skin/Breast: Denies pruritus, Denies erythema, Denies rash and Denies wounds Neurologic Neurologic: Denies behavioral changes, Denies confusion, Denies dizziness, Denies frequent falls, Denies loss of vision, Denies numbness, Denies tingling and Denies weakness Psychiatric Psychiatric: Denies anxiety, Denies behavioral changes, Denies confusion, Denies depression, Denies homicidal ideation and Denies suicidal ideation Endocrine Endocrine: Denies fatigue, Denies flushing and Denies palpitations Hematologic/Lymphatic Hematologic/Lymphatic: Denies easy bruising Allergic/Immunologic Allergic/Immunologic: Denies urticaria, Denies throat swelling and Denies wheezing Patient History Medical History Esophageal cancer (Chronic) Esophageal spasm (Acute) Surgical History Encounter for feeding tube placement (Acute) Family History Other Adopted person Social History household members: none Smoking Status: Former smoker alcohol intake: never substance use type: does not use Smoking Status: Former smoker alcohol intake frequency: 0-2 drinks per day Substance Use Type: does not use Exam Narrative Exam Narrative: GENERAL: [73] year old patient appears stated age. Well-nour ished, well-developed patient, in mild distress. HEAD: Atraumatic. Normocephalic. EYES: Pupils equal round and reactive. Extraocular motions intact. No scleral icterus. No injection or drainage. ENT: Nose without bleeding, purulent drainage. Throat without erythema, tonsillar hypertrophy or exudate. Airway patent. NECK: Trachea midline. Non tender CARDIOVASCULAR: Regular rate and rhythm without murmurs, gallops, or rubs. RESPIRATORY: Clear to auscultation. Breath sounds equal bilaterally. No wheezes, rales, or rhonchi. GASTROINTESTINAL: Abdomen soft, non-tender, nondistended. EXTREMITIES: No edema or joint tenderness. BACK: Nontender without deformity or crepitance. No flank tenderness. NEURO: AOx3. SKIN: No rash or erythema of visible areas Initial Vital Signs Initial Vital Signs: Vital Signs Temperature 97.4 F L 06/30/19 08:29 Pulse Rate 90 06/30/19 08:29 Respiratory Rate 15 06/30/19 08:29 Blood Pressure 132/71 06/30/19 08:29 Pulse Oximetry 97 06/30/19 08:29 Course Course Course Narrative: patient seen and evaluated by surgery. Lengthy discussion with family and friends. Patient has full capacity and DOES NOT WANT any heroic interventions, she wishes to pursue hospice / palliative care and to be transferred back to [facility]. I've spoken with her care provider her there to relay these findings. Orders Ordered: ED Orders 06/30/19 08:30 XR abdomen min 2V Stat 06/30/19 08:35 Basic Metabolic Panel Stat Complete Blood Count AUTO DIFF Stat Prothrombin Time INR Stat Type and Screen Stat Discontinued Medications Sodium Chloride (Normal Saline 0.9%) 500 mls @ 1,000 mls/hr IV BOLUS ONE Stop: 06/30/19 08:59 Last Infusion: 06/30/19 09:59 Dose: 0 mls/hr Documented by: Admin: 06/30/19 08:47 Dose: 1,000 mls/hr Documented by: BRENDA Pantoprazole Sodium (Protonix) 40 mg IV NOW ONE Stop: 06/30/19 08:31 Last Admin: 06/30/19 08:39 Dose: 40 mg Documented by: MEISENB Vital Signs Vital signs: Vital Signs - 8 hr 06/30/19 08:29 06/30/19 08:30 06/30/19 09:00 Temperature 97.4 F L Pulse Rate 90 90 81 Respiratory Rate 15 15 15 Blood Pressure 132/71 Blood Pressure [Left Arm] 132/71 124/66 Pulse Oximetry 97 97 96 06/30/19 09:30 06/30/19 10:00 06/30/19 10:30 Temperature Pulse Rate 78 75 81 Respiratory Rate 14 15 Blood Pressure Blood Pressure [Left Arm] 118/71 128/68 132/66 Pulse Oximetry 98 98 97 06/30/19 11:00 06/30/19 11:43 Temperature Pulse Rate 82 84 Respiratory Rate 15 15 Blood Pressure Blood Pressure [Left Arm] 128/73 134/67 Pulse Oximetry 98 100 MDM - Nausea/Vomiting/Diarrhea Lab Data Result diagrams: 06/30/19 08:35 06/30/19 08:35 Labs: Lab Results 06/30/19 06/30/19 06/30/19 Range/Units 08:35 08:35 08:35 WBC 11.3 H (4.5-11.0) X10^3/uL RBC 3.90 L (4.0-5.2) X10^6/uL Hgb 10.7 L (12.0-16.0) g/dL Hct 31.8 L (36-46) % MCV 81.6 (80-100) fL MCH 27.3 (26-34) PG MCHC 33.5 (30-36) % RDW 15.0 H (11.6-14.8) % Plt Count 384 (150-400) X10^3/uL Neut % (Auto) 75.2 H (50-75) % Lymph % (Auto) 14.0 L (25-40) % Tucker % (Auto) 9.2 (3-14) % Eos % (Auto) 0.7 L (2-4) % Baso % (Auto) 0.9 (0-2) % Neut # (Auto) 8500 H (2772-9455) /uL Lymph # (Auto) 1600 (0828-4318) /uL Tucker # (Auto) 1000 H (0-900) /uL Eos # (Auto) 100 (0-450) /uL Baso # (Auto) 100 (0-100) /uL PT 12.8 H (10.1-12.7) SECONDS INR 1.1 (0.9-1.3) Sodium 129 L (137-145) mmol/L Potassium 3.4 (3.4-5.1) mmol/L Chloride 94 L (98-107) mmol/L Carbon Dioxide 27 (22-32) mmol/L BUN 20 H (7-17) mg/dL Creatinine 0.60 (0.52-1.04) mg/dL Estimated GFR > 60.0 (>60) mL/min BUN/Creatinine Ratio 33.3 H (6-22) Glucose 149 H (80-110) mg/dL Calcium 8.7 (8.4-10.2) mg/dL Blood Type Antibody Screen 06/30/19 Range/Units 08:35 WBC (4.5-11.0) X10^3/uL RBC (4.0-5.2) X10^6/uL Hgb (12.0-16.0) g/dL Hct (36-46) % MCV (80-100) fL MCH (26-34) PG MCHC (30-36) % RDW (11.6-14.8) % Plt Count (150-400) X10^3/uL Neut % (Auto) (50-75) % Lymph % (Auto) (25-40) % Tucker % (Auto) (3-14) % Eos % (Auto) (2-4) % Baso % (Auto) (0-2) % Neut # (Auto) (7563-4443) /uL Lymph # (Auto) (8928-5988) /uL Tucker # (Auto) (0-900) /uL Eos # (Auto) (0-450) /uL Baso # (Auto) (0-100) /uL PT (10.1-12.7) SECONDS INR (0.9-1.3) Sodium (137-145) mmol/L Potassium (3.4-5.1) mmol/L Chloride (98-107) mmol/L Carbon Dioxide (22-32) mmol/L BUN (7-17) mg/dL Creatinine (0.52-1.04) mg/dL Estimated GFR (>60) mL/min BUN/Creatinine Ratio (6-22) Glucose (80-110) mg/dL Calcium (8.4-10.2) mg/dL Blood Type A Positive Antibody Screen Negative Imaging Data Abdominal x-ray: Radiologist's impression: [address] [address] XRay Report Signed Patient: Tessy Vasquez [facility]#: [id number] : 5Acct:[id number] Age/Sex: 73 / FDate of Service: 06/30/19 Loc: ED Accession Number: [id number] Procedure: XR abdomen min 2V Ordering Provider: New Pierson D.O. PROCEDURE: XR ABDOMEN MIN 2V INDICATIONS: vomiting, hematemesis TECHNIQUE: 2 views of the abdomen were acquired. COMPARISON: None. FINDINGS: Surgical changes and devices: Percutaneous gastrostomy. Bowel: No pneumoperitoneum. Moderate to large amount of colonic stool. The bowel gas pattern is otherwise normal. Soft tissues: No masses; visualized solid organ contours appear normal in size. No suspicious abdominal calcifications. Bones: No suspicious bony abnormalities. IMPRESSION: No acute process. Moderate to large amount of colonic stool. Dictated by: Shirley Garcia M.D. on 06/30/2019 at 8:48 Approved by: Shirley Garcia M.D. on 06/30/2019 at 8:50 MDM Narrative Medical decision making narrative: General surgery, patient's care provider, and myself all sure the pain in this is likely an evolution of her esophageal cancer, likely a rotating her esophagus causing the bleeding. Patient does not want any interventions and prefers to be on hospice. We did discuss whether not to stop the aspirin which would decrease her bleeding risk but would increase her stroke risk, patient states that she would rather bleed and have another stroke. Discharge Plan Departure Patient Disposition: Home Clinical Impression: Esophageal cancer, Acute GI bleeding Discharge Date/Time: 06/30/19 11:50 Instructions: DI for Vomiting -- Adult Activity Restrictions/Additional Instructions: *You have been diagnosed with [vomiting with bleeding, this is likely a consequence of evolution of your esophageal cancer. We have spoken with the surgeons as well as the primary care provider taking care of you at [facility] and she will help care for you moving forward] *What to do: *Take medications as directed *Follow up with your primary care provider in 2-3 days, call for an appoint ment. Let them know you were seen in the Emergency Department and that we ask that you be seen in follow up *Return to ER if you should have any new, worsening or concerning symptoms Prescriptions: No Action bisacodyl 10 mg Suppository 10 mg AL DAILY PRN (Reason: Constipation) Qty: 10 RF: 0 acetaminophen 160 mg/5 mL liquid 640 mg PO Q6H PRN (Reason: fever or pain) Qty: 120 RF: 0 aspirin 81 mg Tablet,Chewable 81 mg PO DAILY 30 Days Qty: 30 RF: 0 ondansetron 4 mg tablet,disintegrating 4 mg PO Q6H PRN (Reason: nausea and vomiting) Qty: 14 RF: 0 hydralazine 10 mg Tablet 10 mg feeding tube QID RF: 0 docusate sodium 50 mg/5 mL liquid 100 mg feeding tube BID RF: 0 atorvastatin [Lipitor] 80 mg tablet 80 mg feeding tube BEDTIME RF: 0 polyethylene glycol 3350 17 gram powder in packet 17 gram feeding tube DAILY RF: 0 melatonin 3 mg tablet 6 mg feeding tube BEDTIME RF: 0 Bacid 1 billion cell- 250 mg tablet 1 ea PO BIDWM RF: 0
[2019-06-30] MEDS: SODIUM CHLORIDE 0.9% 500 ML 1000 ML IV (08:47)
[2019-06-30 08:53] LABS: INR 1.1 (0.9-1.3); Prothrombin Time 12.8 SECONDS (10.1-12.7)
[2019-06-30 08:57] LABS: BUN Creatinine Ratio 33.3 (6-22); Blood Urea Nitrogen 20 mg/dL (7-17); Calcium 8.7 mg/dL (8.4-10.2); Carbon Dioxide 27 mmol/L (22-32); Chloride 94 mmol/L (98-107); Estimated Glomerular Filt Rate > 60.0 mL/min (>60); Glucose 149 mg/dL (80-110); HEMOLYSIS < 15 (0-50); Potassium 3.4 mmol/L (3.4-5.1); Sodium 129 mmol/L (137-145)
--- NOTE | 2019-06-30 11:51 | PC.NURSE ---
report called at [facility]. spoke with sukhjinder.
== END 2019-06-30 11:50 | disposition home or self-care (01) ==
PROVIDERS: Emergency Provider Emergency Medicine
DX: K92.0 Hematemesis (principal); Z85.01 Personal history of malignant neoplasm of esophagus
CPT/HCPCS: 36415; 74019; 80048; 85025; 85610; 86850; 86900; 86901; 96361; 96374; 99282; 99284; C9113